=== PATIENT | female | born 1950 | race Caucasian/White ===

== ENCOUNTER → 2017-07-11 10:21 | Outpatient (CLI) | payer BC, OTHER, SELFPAY ==
--- NOTE | 2017-07-11 10:24 | MRI_ITS ---
MR Brain W/O Contrast INDICATION: migraine, LEFT FACE /ARM PAIN; H/O SYNCOPE, ANEURYSM COMPARISON: MRI/MRA February 2015 TECHNIQUE: Multiplanar multisequence MRI examination of the brain without contrast FINDINGS: There is no evidence of restricted diffusion to suggest acute infarction. The ventricular system is normal and stable compared to the prior study. There is stable minimal periventricular T2/FLAIR signal hyperintensity and a small punctate focus of signal hyperintensity in the left high frontal subcortical white matter. No new findings. Supra and infratentorial brain parenchyma demonstrates otherwise normal signal. No evidence of parenchymal hemorrhage, mass effect, midline shift, or abnormal extra-axial collection. Midline structures and craniocervical junction are unremarkable. Flow-voids of the [place] vascularity are well seen. Paranasal sinuses and mastoid air cells are clear. Please note that an angiographic sequence was not ordered or included in the scan, in the evaluation or follow-up for aneurysm is not possible. MRI/Brain without Contrast IMPRESSION: Stable examination compared to February 2015 with very minimal periventricular and a focal punctate left frontal subcortical FLAIR signal hyperintensity, nonspecific findings, may be related to very early chronic ischemic microvascular white matter changes. No new or acute findings. at 1409 Reported and signed by: Theresa Thibodeaux MD Electronically Signed: Theresa Thibodeaux MD at 14:07 EDT Tel , Service support ,
--- NOTE | 2017-07-11 10:24 | MRI_ITS ---
STUDY: MRI CERVICAL SPINE WITHOUT CONTRAST REASON FOR EXAM: Female, 66 years old. Cervical radiculopathy with left arm pain and neck pain TECHNIQUE: Standardized fat and water weighted pulse sequences were obtained in the sagittal and axial planes. COMPARISON: None FINDINGS: Normal foramen magnum and brainstem-cervical cord junction. Normal craniovertebral junction. Normal anterior atlantoaxial articulation. Normal odontoid process. Normal cervical lordosis. Normal vertebral bodies and posterior osseous elements. C2-3: Normal endplates. Normal disc height, signal and morphology. Normal central canal and intervertebral neural foramina. C3-4: Disc osteophyte complex with minimal central canal and moderate left foraminal stenoses. C4-5: Disc osteophyte complex with moderate central canal stenosis and severe left and moderate to severe right foraminal stenoses. C5-6: Disc osteophyte complex with severe central canal stenosis, mild cord compression, and severe bilateral foraminal stenoses. C6-7: Disc osteophyte complex with moderate to severe left foraminal stenosis. C7-T1: Disc osteophyte complex with moderate left foraminal stenosis. No intrinsic cord signal abnormalities are seen. Normal visualized soft tissue structures. MRI/Spine Cervical (Routine) IMPRESSION: Multilevel degenerative disease as described. Severe foraminal stenoses on the left at C4-5 and bilaterally at C5-6. Severe central canal stenosis with mild cord compression at C5-6. No intrinsic cord signal abnormalities are seen, however. Electronically Signed: Rick Kim MD at 2:24 EDT Tel , Service support ,
== END ==
PROVIDERS: Family Provider Family Medicine; PCP Family Medicine; Visit Provider Psychiatry & Neurology Neurology
DX: R51 Headache (principal); M79.602 Pain in left arm; M79.605 Pain in left leg; G90.50 Complex regional pain syndrome I, unspecified; I72.9 Aneurysm of unspecified site
CPT/HCPCS: 70551; 72141

== ENCOUNTER 2018-03-16 09:00 | Emergency (ER) | payer BC, OTHER, MEDICARE, SELFPAY ==
[2018-03-16 09:02] VITALS: BP 131/73; PULSE 90; RESP 16; TEMP 36.8; O2SAT 100; BMI 29.5
--- NOTE | 2018-03-16 09:21 | VDLE_ITS ---
Reason For Study: PAIN RIGHT LEFT GSV is normal. CFV is compressible, spontaneous, phasic, CFV is compressible, spontaneous, phasic, competent, and demonstrates normal competent and demonstrates normal augmentation. augmentation. FV is compressible, spontaneous, phasic, competent and demonstrates normal augmentation. POP V is compressible, spontaneous, phasic, competent and demonstrates normal augmentation. T/P Trunk is compressible. PTV is compressible. RT PerV is compressible. Procedure Exam performed portable in ED. A preliminary report was called and/or faxed to ED. Interpretation Summary Deep veins of the right lower extremity are patent and compressible segmentally. There is no evidence of right lower extremity deep vein thrombosis. Valvular competence appears intact within the proximal deep venous system on the right . The right greater saphenous vein appears patent and compressible segmentally. Ordering Physician: Tyree Romero Referring Physician: NOBLE RUTH Performed By: Mayra Wynn RDCS, RVT
--- NOTE | 2018-03-16 09:35 | RAD_ITS ---
STUDY: X-RAY - RIGHT KNEE REASON FOR EXAM: Female, 67 years old. Right-sided knee pain. TECHNIQUE: 3 view(s) of the knee. COMPARISON: None. FINDINGS: Normal visualized distal femur. Normal visualized proximal tibia and fibula. Normal proximal tibiofibular articulation. There is mild narrowing of the medial femoral tibial compartment. Normal lateral femorotibial compartment. Normal patellofemoral articulation. There is no demonstrated joint effusion. The soft tissue structures are unremarkable. RAD/Knee 3 Views IMPRESSION: 1. Mild joint space narrowing. 2. No radiographic evidence for acute fracture. Electronically Signed: Lizzy Flores MD at 9:57 EST , Service support ,
--- NOTE | 2018-03-16 11:15 | ED.DCSUM_ITS ---
- ER Visit Summary Date of Service: 03/16/18 Chief Complaint: [Right leg pain] History of Present Illness: The patient is a 67 F [presents the emergency department with pain in her right leg/knee that started 2 or 3 months ago. Patient's had pain off and on and has been relatively mild up until a couple of days ago it became more continuous and painful. Patient states the pain is actually worse when she is lying flat and does not notice it as much when she is up and walking. Patient denies any trauma. 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 Patient denies recent travel or surgery. She has no history of PE or DVT.] Physical Examination: [HEENT-PERRLA, EOMI. Cranial nerves II through XII grossly intact. TMs clear. Mucous membranes moist. No adenopathy. Cardiovascular-regular rate and rhythm without murmur or ectopy Lungs-clear to auscultation, chest wall stable without crepitus or subcu emphysema Abdomen-normoactive bowel sounds, soft, nontender, no rebound or rigidity, no peritoneal signs. Extremities-intact ?4, normal range of motion, normal pulses, atraumatic. Right knee-patient has normal range of motion in flexion and extension. There is no erythema or warmth noted. There is no joint effusion. Patient does have some tenderness to palpation over the anterior medial aspect of the tibia just inferior to the knee. Patient has some tenderness over the calf diffusely. No ropes or cords palpated. Patient has normal pulses femoral, popliteal, dorsal pedal, and posterior tibial.] Test Results: [Venous duplex of the right lower extremity obtained was negative for DVT. Patient also had x-rays of the right knee which showed some mild joint space narrowing otherwise no fractures.] Emergency Department Course and Treatment: [] Treatment Plan: [Patient will follow up with her primary care physician within next 5-7 days. Patient also will follow up with neurology.] Patient has [place] at home for pain as needed. Disposition: [Discharged home in stable condition] Impression: [Right leg pain-etiology uncertain.] This note was generated with [employer] software. It may contain incorrect words, spelling, and punctuation that were not noted in review of the chart prior to signing ED Disposition - Plan for ED Patient: Chief Complaint: Lower Extremity Injury Referrals: Nicholas Durbin MD [Primary Care Provider] -
--- NOTE | 2018-03-16 11:15 | ED.DEP ---
ED Disposition - Plan for ED Patient: Chief Complaint: Lower Extremity Injury Instructions: ED Knee Pain [facility] Referrals: Nicholas Durbin MD [Primary Care Provider] - 3-5 Days
--- NOTE | 2018-03-16 11:32 | ED.RN ---
THIS RN TO ROOM TO D/C PATIENT, PATIENT AND BELONGINGS NOT IN ROOM. PT LEFT PRIOR TO RECEIVING DISCHARGE INSTRUCTIONS.
== END 2018-03-16 11:33 | disposition home or self-care (01) ==
LOC: ED 09:50
PROVIDERS: Emergency Provider Emergency Medicine; Family Provider Family Medicine; PCP Family Medicine
DX: M25.561 Pain in right knee (principal); E03.9 Hypothyroidism, unspecified; E78.00 Pure hypercholesterolemia, unspecified; R42 Dizziness and giddiness; K58.9 Irritable bowel syndrome, unspecified; G90.50 Complex regional pain syndrome I, unspecified; Z79.899 Other long term (current) drug therapy
CPT/HCPCS: 73562; 93971; 99281

== ENCOUNTER 2018-03-31 19:01 | Emergency (ER) | payer OTHER, SELFPAY ==
[2018-03-31 19:02] VITALS: BP 158/84; PULSE 76; RESP 16; TEMP 37.2; O2SAT 98; BMI 29.9
[2018-03-31 19:25] VITALS: BP 142/72; PULSE 72; RESP 12; O2SAT 97
--- NOTE | 2018-03-31 19:28 | ED.RN ---
RN CALLED FOR EKG, PULLED OLD EKGS FOR
--- NOTE | 2018-03-31 19:48 | EKG12_ITS ---
Test Reason : CP Blood Pressure : / mmHG Vent. Rate : 069 BPM Atrial Rate : 069 BPM P-R Int : 160 ms QRS Dur : 104 ms QT Int : 392 ms P-R-T Axes : 051 001 049 degrees QTc Int : 420 ms Normal sinus rhythm Normal ECG Confirmed by KITTY CANO, RANDY ([id number]), metropolitan editor FARHANA BENITEZ ([id number]) on 04/02/2018 9:22:43 AM Referred By: TERE Confirmed By:RANDY TANG MD
--- NOTE | 2018-03-31 19:48 | RAD_ITS ---
STUDY: X-RAY CHEST REASON FOR EXAM: Female, 67 years old. Tachycardia TECHNIQUE: Single AP portable view of the chest. COMPARISON: 10/18/2015 FINDINGS: EKG leads overlie the chest The lungs are clear and expanded. There is no demonstrated pleural abnormality. Normal size heart. Normal mediastinum and alfreda. Normal visualized pulmonary arteries. Normal visualized aortic arch and descending thoracic aorta. Normal visualized thoracic spine. Normal visualized ribs, clavicles, and shoulders. There is no demonstrated abnormality of the visualized soft tissue structures of the upper abdomen. RAD/Chest 1 View (Portable) IMPRESSION: Normal x-ray examination of the chest. Electronically Signed: Mikhail Fleming MD at 20:40 EST , Service support ,
[2018-03-31 20:04] LABS: Absolute Lymphocyte Count 4.39 X10^3/ul (0.83-4.51); Absolute Neutrophil Count 4.9 X10^3/uL (2.0-7.7); Basophil# 0.07 X10^3/uL; Basophil% 0.7 % (0-1); Eosinophil# 0.22 X10^3/uL; Eosinophils% 2.2 % (0-5); Hematocrit 41.1 % (37-47); Hemoglobin 13.6 g/dl (12.0-15.0); Lymphocyte # 4.39 X10^3/ul (4.0); Lymphocyte % 43.7 % (19-41); Mean Corp Hgb Conc 33.1 g/gl (32-36); Mean Corpuscular Hgb 28.5 pg (27.0-32.0); Mean Corpuscular Volume 86.2 fL (81-99); Mean Platelet Vol. 10.7 fl (6.2-12.0); Monocyte# 0.51 X10^3/uL; Monocyte% 5.1 % (0-10); Neutrophil # 4.85 X10^3/uL (2.7-7.7); Neutrophil % 48.2 % (47-70); Platelet Count 261 K/mm3 (150-450); RBC Distribution Width CV 13.7 % (11.6-14.6); RBC Distribution Width SD 43.2 fl (35.1-43.9); Red Blood Count 4.77 M/mm3 (4.2-5.4); White Blood Count 10.1 K/mm3 (4.4-11.0)
[2018-03-31 20:06] LABS: POSITIVE COUNT NO; POSITIVE DIFFERENTIAL NO; POSITIVE MORPHOLOGY NO
[2018-03-31] MEDS: Aspirin 81 MG TAB.CHEW 324 MG PO (20:09)
[2018-03-31] MEDS: 0.9% Normal Saline 1,000 ML 150 ML IV (20:09)
[2018-03-31 20:13] VITALS: BP 127/62; PULSE 67; RESP 13; O2SAT 97
[2018-03-31 20:20] LABS: Anion Gap 8 (5-15); BUN 18 mg/dL (7-18); BUN/Creat Ratio 17.6 RATIO (10-20); Calcium,Total 8.8 mg/dL (8.5-10.1); Chloride 103 mmol/L (98-107); Creatinine, Serum 1.02 mg/dL (0.55-1.02); EST Glomerular Filtration Rate 58 mL/min (>60); Est Glom Filt Rate - Afr Amer 70 mL/min (>60); Estimated Creatinine Clearance 51.48 ml/min; Glucose 103 mg/dL (74-106); Potassium 3.6 mmol/L (3.5-5.1); Sodium Level 138 mmol/L (136-145)
[2018-03-31] MEDS: Mag Hydrox/Al Hydrox/Simeth 30 ML UDC PO (21:19)
[2018-03-31 21:22] VITALS: BP 133/74; PULSE 59; RESP 15; O2SAT 100
--- NOTE | 2018-03-31 21:27 | ED.VISSUMM ---
- ER Visit Summary Date of Service: 03/31/18 Chief Complaint: Chest pain History of Present Illness: The patient is a 67 F who presents with chest pain approximately 3 hours in duration. Patient states she was lying in bed watching a movie and eating Chipotle when she started noticing her heart racing. This was followed by a pressure sensation low in the mid chest area. She does not feel short of breath. She states she did measure her heart rate at 105. 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 Patient did undergo cardiac workup in summer 2015 with a normal exercise stress test at that time. Physical Examination: Vital signs are unremarkable. Head neck examination normal. Heart is regular rate and rhythm. Lung sounds are clear. Abdomen is soft and nontender. Extremity examination was no calf tenderness or edema. Test Results: EKG is sinus at 69 with no sign of acute ischemia. CBC and chemistry studies normal. Troponin is less than 0.015. Portable chest x-ray is unremarkable. Emergency Department Course and Treatment: Patient was given aspirin along with a dose of IV Pepcid. On repeat evaluation she does report some improvement but still has some mild pressure in her chest. She is given a GI cocktail. Patient reports no significant improvement with this. She still feels like she is vibrating on the inside. She is given a dose of Zofran and Ativan. On repeat evaluation she is resting comfortably but her eyes closed. She states the vibrating nerve sensation on the inside is improving but not completely resolved. The pressure sensation that she had in the lower chest is gone. The heart racing sensation is completely gone. Patient had significant cardiac workup less than 2 years ago that was unremarkable. She has not had recent symptoms concerning for cardiac disease. She will be discharged home at this time. If her symptoms worsen or she has any other concerns she is to return for repeat examination. Treatment Plan: [] Disposition: Discharge Impression: Atypical chest pain This note was generated with [employer] dictation software. It may contain incorrect words, spelling, and punctuation that were not noted in review of the chart prior to signing ED Disposition - Plan for ED Patient: Chief Complaint: Chest Pain Referrals: Nicholas Durbin MD [Primary Care Provider] -
[2018-03-31] MEDS: Ondansetron 4 MG/2 ML Vial IV (21:59)
[2018-03-31] MEDS: LORazepam 2 MG/ML Syringe 0.5 MG IV (22:00)
[2018-03-31 22:02] VITALS: BP 126/78; PULSE 61; RESP 13; O2SAT 100
--- NOTE | 2018-03-31 22:44 | ED.DEP ---
ED Disposition - Plan for ED Patient: Disposition: Home or Assisted Living Chief Complaint: Chest Pain Instructions: ED Chest Pain Atypical Unkn Cause Referrals: Nicholas Durbin MD [Primary Care Provider] - 3-5 Days if not improving
[2018-03-31 22:48] VITALS: BP 118/60; PULSE 60; RESP 14; O2SAT 97
== END 2018-03-31 22:55 | disposition home or self-care (01) ==
PROVIDERS: Emergency Provider Emergency Medicine; Family Provider Family Medicine; PCP Family Medicine
DX: R07.89 Other chest pain (principal); E03.9 Hypothyroidism, unspecified; E78.00 Pure hypercholesterolemia, unspecified; G90.512 Complex regional pain syndrome I of left upper limb; F32.9 Major depressive disorder, single episode, unspecified; K21.9 Gastro-esophageal reflux disease without esophagitis; Z79.899 Other long term (current) drug therapy
CPT/HCPCS: 71045; 80048; 84484; 85025; 93005; 96361; 96374; 96375; 99284; J7030; A4216; J2405; J3490

== ENCOUNTER → 2018-09-03 16:20 | Outpatient (CLI) | payer OTHER, SELFPAY ==
--- NOTE | 2018-09-03 16:24 | RAD_ITS ---
STUDY: X-RAY CHEST REASON FOR EXAM: Female, 68 years old. Cough. Trouble breathing for 2 weeks. TECHNIQUE: PA and lateral views of the chest. COMPARISON: March 31, 2018. FINDINGS: The lungs are well expanded. There is no new infiltrate or mass. There is no demonstrated pleural abnormality. Normal size heart. Normal mediastinum and alfreda. Normal visualized pulmonary arteries. Normal visualized aortic arch and descending thoracic aorta. Normal visualized thoracic spine. Normal visualized ribs, clavicles, and shoulders. There is no demonstrated abnormality of the visualized soft tissue structures of the upper abdomen. RAD/Chest PA and Lateral IMPRESSION: No acute cardiopulmonary disease or major interval change. Electronically Signed: Bruno Navaror DO at 16:37 EDT Tel [phone], Service support ,
== END ==
PROVIDERS: Family Provider Family Medicine; PCP Family Medicine; Referring Provider Physician Assistant Surgical; Visit Provider Physician Assistant Surgical
DX: J40 Bronchitis, not specified as acute or chronic (principal)
CPT/HCPCS: 71046

== ENCOUNTER → 2019-01-14 08:37 | Outpatient (CLI) | payer OTHER, MEDICARE, SELFPAY ==
--- NOTE | 2019-01-14 08:45 | BD_ITS ---
STUDY: DUAL ENERGY X-RAY ABSORPTIOMETRY / DXA REASON FOR EXAM: Female, 68 years old. The patient is postmenopausal. Loss of height. TECHNIQUE: Bone Mineral Density (BMD) measurements of lumbar spine and bilateral hips were obtained. COMPARISON: None. FINDINGS: Lumbar Spine (L1-L4): g/cm2 (1.002) / T-score (-1.5) / Z-score (0.1) Findings are suggestive of osteopenia with a low fracture risk. Left Femur Total: g/cm2 (0.826) / T-score (-1.4) / Z-score (-0.2) Left Femoral Neck: g/cm2 (0.764) / T-score (-2.0) / Z-score (-0.5) Right Femur Total: g/cm2 (0.811) / T-score (-1.6) / Z-score (-0.3) Right Femoral Neck: g/cm2 (0.772) / T-score (-1.9) / Z-score (-0.4) BD/Dexa Bone Density Study IMPRESSION: The patient is considered osteopenic as outlined below according to World Daniel Organization (WHO) criteria with a moderate fracture risk. Reference Information: The T-score is the number of standard deviations above or below the standard which is normal for young adults at their peak bone mineral density. The World Health Organization (WHO) interprets the T-scores as follows: Above -1 Normal bone density Between -1 and -2.5 Osteopenia Equal to / or below -2.5 Osteoporosis As a practical clinical guideline, osteopenia may be graded as follows: Mild -1 through -1.5 Moderate -1.6 through -2.0 Severe -2.1 through -2.4 The Z-score is the number of standard deviations above or below age-matched controls. A Z-score of less than -1.5 would be considered abnormal. References: 1. NIH Osteoporosis and Related Bone Diseases http://www.osteo.org 2. International Society for Clinical Densitometry http://www.iscd.org 3. National Osteoporosis Foundation http://www.nof.org Electronically Signed: Stan Jay, at 12:39 EDT , Service support ,
== END ==
PROVIDERS: Family Provider Family Medicine; PCP Family Medicine; Referring Provider Family Medicine; Visit Provider Family Medicine
DX: Z78.0 Asymptomatic menopausal state (principal)
CPT/HCPCS: 77080

== ENCOUNTER 2020-05-12 12:51 | Emergency (ER) | payer MEDICARE, OTHER, SELFPAY ==
[2020-05-12 12:51] VITALS: BP 152/81; PULSE 56; RESP 20; TEMP 36.7; O2SAT 97; BMI 31.6
--- NOTE | 2020-05-12 13:00 | EKG12_ITS ---
Test Reason : Blood Pressure : / mmHG Vent. Rate : 053 BPM Atrial Rate : 053 BPM P-R Int : 160 ms QRS Dur : 102 ms QT Int : 436 ms P-R-T Axes : 047 -25 028 degrees QTc Int : 409 ms Sinus bradycardia Otherwise normal ECG Confirmed by KITTY CANO, RANDY ([id number]), news assignment editor CARI MIRANDA ([id number]) on 05/17/2020 10:42:46 AM Referred By: BYRON Confirmed By:RANDY TANG MD
--- NOTE | 2020-05-12 13:02 | ED.DCSUM_ITS ---
History of Present Illness Chief Complaint: Back Informant: Patient Onset: Today, Hours Context: Sudden Onset Timing: Continuous Quality: Pain with pleuritic component Location: Central thoracic Current Severity: Moderate Maximum Severity: Severe Worsened by: Movement, breathing Relieved by: Nothing Associated Symptoms: No other symptoms Narrative: Patient is a 69-year-old woman with history of hypertension, hypothyroidism, hypercholesterolemia and ocular Serratia who presents with acute atraumatic central mid back pain. There is a pleuritic component. She and her recently returned from [place]. She denies history of PE or DVT. She denies leg pain, swelling discoloration. She denies shortness of breath. Patient denies H EENT symptoms. Denies abdominal pain, nausea, vomiting or diarrhea. She denies urologic symptoms. There is no history of renal ureterolithiasis. Prior similar symptoms: No Recent Illness/Hospitalization: No - Past Medical History (1) Hypertension Status: Chronic (2) Depression Status: Chronic (3) Hyperlipidemia Status: Chronic (4) Hypothyroidism Status: Chronic (5) Reflex sympathetic dystrophy of left upper extremity Status: Chronic Past Medical History - Allergies and Home Meds Allergies/Adverse Reactions: Allergies No Known Allergies Allergy (Verified 09/03/18 16:14) Primary Care Physician: Nicholas Durbin MD [Primary Care Provider] - 3-5 Days if not improving Prior records reviewed: Yes Surgical History: cholecystectomy Lives: Spouse/ Significant Other Smoking Status: Never smoker Alcohol: None Drugs: None - Family History Maternal Family History: Reports: Stroke Paternal Family History: Reports: No pertinent history Review of Systems General: Denies: Chills, Fever, Malaise, Subjective ENT: Denies: Bilateral ear pain, Rhinorrhea, Sore throat Cardiovascular: Denies: Chest pain, Palpitations, Heart racing Respiratory: Denies: Dyspnea, Cough, Sputum, Dyspnea on exertion, Orthopnea, Paroxysmal nocturnal dyspnea Gastrointestinal: Denies: Abdominal pain, Nausea, Vomiting, Diarrhea, Melena, Hematochezia Genitourinary: Denies: Dysuria, Hematuria, Frequency Musculoskeletal: Reports: Back pain. Denies: Myalgias, Arthralgias, Neck pain, Swelling, Extremity Pain Skin: Denies: Rash, Wounds Neurological: Denies: Headache, Weakness, Parasthesia Psych: Denies: Depression Hematologic: Denies: Easy bruising, Easy bleeding Physical Exam Vital Signs/Narrative: Vital Signs Temp Pulse Resp BP Pulse Ox 05/12/20 12:51 98.1 F 56 L 20 H 152/81 H 97 Inital Vital Signs reviewed: Yes General: Well nourished, Well developed, Obese, Acute Distress Head: Normocephalic, Atraumatic Eyes: Perrl, EOMI. Negative for: Pale conjunctiva, Scleral icterus ENT: Moist mucous membranes, No rhinorrhea, TM's clear Neck: Supple, Nontender, No lymphadenopathy, No JVD Cardiovascular: Regular rhythm, No murmurs, Normal S1, Normal S2, Bradycardia Respiratory: No distress, Chest nontender, Rales - Poor inspiratory effort. The is bilateral and the story rales. Patient is reluctant to take a deep breath.. Negative for: CTA bilaterally Abdomen: Soft, Nontender, Nondistended, Normal bowel sounds, No masses. Negative for: Hepatomegaly, Splenomegaly, Mass, Pulsatile mass Rectal: Deferred Back: Nontender, Normal Inspection. Negative for: CVA tenderness, Spinal tenderness Extremities: Nontender, No edema, - - There is no asymmetry, swelling, discoloration, leg vein distention, palpable cords or tenderness along the distribution of the deep venous system. Skin: Normal color, No rash Neurological: Alert, Oriented x3, Cranial nerves II-XII grossly intact, Normal Strength, Normal Sensation, - - Radial pulse, DP pulse 2+ and symmetric Psychological: Normal affect Diagnostic/Tx/Re-eval Impressions Chest CTA 05/12/20 13:24 IMPRESSION: No evidence of pulmonary embolism. Findings suggestive of mild linear scarring at the lung bases. Electronically Signed: Stan Jay MD at 13:47 EST , Service support , 05/12/20 13:24 CTA Chest W/WO Contrast [CT] Stat Laboratory Results 05/12/20 05/12/20 05/12/20 13:10 13:10 13:10 WBC 7.1 RBC 4.41 Hgb 13.0 Hct 40.0 MCV 90.7 MCH 29.5 MCHC 32.5 RDW Std Deviation 44.5 H RDW Coeff of Nadine 13.4 Plt Count 199 MPV 10.8 Immature Gran % (Auto) 0.100 Neut % (Auto) 45.7 L Lymph % (Auto) 45.8 H Wells % (Auto) 6.2 Eos % (Auto) 1.4 Baso % (Auto) 0.8 Absolute Neuts (auto) 3.3 Absolute Lymphs (auto) 3.27 Nucleated RBC % 0 PT 12.5 INR 1.0 APTT 27.2 Sodium 135 L Potassium 3.8 Chloride 101 Carbon Dioxide 29.0 Anion Gap 5 BUN 10 Creatinine 0.91 Estim Creat Clear Calc 56.16 Est GFR (MDRD) Af Amer 79 Est GFR (MDRD) Non-Af 66 BUN/Creatinine Ratio 11.0 Glucose 81 Lactic Acid Calcium 9.0 Troponin I < 0.015 B-Natriuretic Peptide 05/12/20 05/12/20 13:10 13:10 WBC RBC Hgb Hct MCV MCH MCHC RDW Std Deviation RDW Coeff of Nadine Plt Count MPV Immature Gran % (Auto) Neut % (Auto) Lymph % (Auto) Wells % (Auto) Eos % (Auto) Baso % (Auto) Absolute Neuts (auto) Absolute Lymphs (auto) Nucleated RBC % PT INR APTT Sodium Potassium Chloride Carbon Dioxide Anion Gap BUN Creatinine Estim Creat Clear Calc Est GFR (MDRD) Af Amer Est GFR (MDRD) Non-Af BUN/Creatinine Ratio Glucose Lactic Acid 0.8 Calcium Troponin I B-Natriuretic Peptide 55.0 work-up is negative. Will treat with NSAIDs. - EKG Initial EKG Interpretation: Sinus Bradycardia - Sinus bradycardia with a ventricular rate of 51. TN interval is 160 ms. QRS duration 102 ms. QT duration 436 ms. [place] is normal. Other than the bradycardia the EKG is normal. - Medical Decision Making With abrupt onset of atraumatic back pain with pleuritic component need to rule out aortic dissection versus pulmonary embolus. Appropriate blood work was ordered. CAT scan was informed concern is for both of aortic dissection as well as pulmonary embolus. Since she is not complaining of shortness of breath is more concern for aortic dissection. However there is a pleuritic component and she has had a recent long distance trip. ED Disposition - Plan for ED Patient: Disposition: Home or Assisted Living Diagnosis: Pleuritic pain, Acute back pain, Elevated blood pressure reading Instructions: ED Pleurisy Prescriptions: Naproxen [Naprosyn] 500 mg PO BID #14 tab Transmission Status: Pending to [facility] #[id number] Referrals: Nicholas Durbin MD [Primary Care Provider] - 3-5 Days if not improving
[2020-05-12 13:03] VITALS: PULSE 65; RESP 14; O2SAT 96
--- NOTE | 2020-05-12 13:24 | CT_ITS ---
STUDY: CTA CHEST REASON FOR EXAM: Female, 69 years old. BACK PAIN TODAY. RECENT TRAVEL RADIATION DOSAGE (If Supplied By Facility): CTDIvol = ( 14.44 ) mGy, DLP = ( 521.18 ) mGycm TECHNIQUE: The examination was performed with the intravenous administration of IV 100mL Isovue-370. Post-processing of the angiographic images was performed, with multiplanar reformation and 3D reconstruction. Individualized dose optimization techniques were used for this CT. COMPARISON: None. FINDINGS: Normal enhancement of the main pulmonary artery and right and left pulmonary arteries. Normal enhancement of the bilateral peripheral pulmonary arteries. There is no demonstrated pulmonary embolism. There is atherosclerotic calcification of the aortic arch with tortuosity. There is no demonstrated aortic dissection. Normal heart and pericardium. Normal mediastinum. Normal hilar regions. Normal visualized trachea and bronchi. The lungs are well expanded. Minimal degree of increased markings with areas of confluence at the lung bases with mild subpleural blebs suggestive of scarring. Normal pleura. Normal chest wall structures. Normal osseous structures. The patient is status post cholecystectomy. CT/CTA Chest W/WO Contrast IMPRESSION: No evidence of pulmonary embolism. Findings suggestive of mild linear scarring at the lung bases. Electronically Signed: Stan Jay MD at 13:47 EST , Service support ,
[2020-05-12 13:37] LABS: Absolute Lymphocyte Count 3.27 X10^3/uL (0.83-4.51); Absolute Neutrophil Count 3.3 X10^3/uL (2.0-7.7); Basophil# 0.06 X10^3/uL; Basophil% 0.8 % (0-1); Eosinophils% 1.4 % (0-5); Lymphocyte # 3.27 X10^3/ul (4.0); Lymphocyte % 45.8 % (19-41); Mean Corp Hgb Conc 32.5 g/dL (32-36); Mean Corpuscular Hgb 29.5 pg (27.0-32.0); Mean Corpuscular Volume 90.7 fL (81-99); Mean Platelet Vol. 10.8 fl (6.2-12.0); Monocyte# 0.44 X10^3/uL; Monocyte% 6.2 % (0-10); NRBC Flagged by Analyzer 0 % (0-5); Neutrophil # 3.26 X10^3/uL (2.7-7.7); Neutrophil % 45.7 % (47-70); Platelet Count 199 K/mm3 (150-450); RBC Distribution Width CV 13.4 % (11.6-14.6); RBC Distribution Width SD 44.5 fl (35.1-43.9); Red Blood Count 4.41 M/mm3 (4.2-5.4); White Blood Count 7.1 K/mm3 (4.4-11.0)
[2020-05-12 13:46] LABS: Prothrombin Time (Protime)PT. 12.5 SECONDS (11.7-14.9)
[2020-05-12 13:47] LABS: Partial Thromboplast Time 27.2 Seconds (24.1-36.2)
[2020-05-12 13:56] LABS: Anion Gap 5 (5-15); BUN 10 mg/dL (7-18); Chloride 101 mmol/L (98-107); Creatinine, Serum 0.91 mg/dL (0.55-1.02); EST Glomerular Filtration Rate 66 mL/min (>60); Est Glom Filt Rate - Afr Amer 79 mL/min (>60); Estimated Creatinine Clearance 56.16 ml/min; Glucose 81 mg/dL (74-106); Potassium 3.8 mmol/L (3.5-5.1); Sodium Level 135 mmol/L (136-145)
[2020-05-12 14:01] LABS: Lactic Acid 0.8 mmol/L (0.4-1.9)
[2020-05-12 14:14] VITALS: BP 143/70; PULSE 50; RESP 13; O2SAT 100
[2020-05-12] MEDS: Ketorolac 15 MG/ML Vial IV (15:18)
[2020-05-12 15:19] VITALS: BP 146/65; PULSE 56; RESP 10; TEMP 36.7; O2SAT 99
== END 2020-05-12 15:25 | disposition home or self-care (01) ==
PROVIDERS: Emergency Provider Emergency Medicine; PCP Family Medicine
DX: M54.6 Pain in thoracic spine (principal); R07.81 Pleurodynia; R00.1 Bradycardia, unspecified; I10 Essential (primary) hypertension; E03.9 Hypothyroidism, unspecified; E78.00 Pure hypercholesterolemia, unspecified; F32.9 Major depressive disorder, single episode, unspecified; E66.9 Obesity, unspecified; Z68.31 Body mass index [BMI] 31.0-31.9, adult; Z79.899 Other long term (current) drug therapy
CPT/HCPCS: 71275; 80048; 83605; 83880; 84484; 85025; 85610; 85730; 93005; 96374; 99285; J7030; Q9967; A4216; J2405

== ENCOUNTER → 2022-06-14 | Outpatient (CLI) | payer MEDICARE, OTHER, SELFPAY ==
[2022-06-14 15:36] LABS: EXAGEN MAILED SPECIMEN
[2022-06-14 17:54] LABS: Absolute Neutrophil Count 4.1 X10^3/uL (2.0-7.7); Basophil# 0.07 X10^3/uL; Basophil% 0.9 % (0-1); Eosinophil# 0.06 X10^3/uL; Eosinophils% 0.8 % (0-5); Hematocrit 43.5 % (37-47); Lymphocyte % 39.2 % (19-41); Mean Corp Hgb Conc 32.2 g/dL (32-36); Mean Corpuscular Hgb 28.7 pg (27.0-32.0); Mean Corpuscular Volume 89.3 fL (81-99); Mean Platelet Vol. 11.9 fl (6.2-12.0); Monocyte# 0.39 X10^3/uL; Monocyte% 5.1 % (0-10); NRBC Flagged by Analyzer 0 % (0-5); Neutrophil # 4.12 X10^3/uL (2.7-7.7); Neutrophil % 53.7 % (47-70); Platelet Count 257 K/mm3 (150-450); RBC Distribution Width CV 13.4 % (11.6-14.6); RBC Distribution Width SD 43.7 fl (35.1-43.9); Red Blood Count 4.87 M/mm3 (4.2-5.4); White Blood Count 7.7 K/mm3 (4.4-11.0)
[2022-06-14 18:06] LABS: Color, Urine Yellow (Yellow); Glucose, Dipstick Normal (Normal); Ketone-Dipstick 5 mg/dl (Negative); Leukocyte Esterase-Dipstick 25 /ul (Negative); Nitrite-Dipstick Negative (Negative); Occult Blood-Urine Negative /ul (Negative); Protein-Dipstick Negative (Negative); Specific Gravity, Urine 1.015 (1.002-1.030); Urine Bilirubin Dipstick Negative (Negative); Urine Clarity Clear (Clear); Urine Urobilinogen Normal (Normal)
[2022-06-14 18:08] LABS: Erythrocyte Sedimentation Rate 6 mm/hr (0-30)
[2022-06-14 18:22] LABS: Protein, Urine (Random) < 6.0 mg/dL (<11.9); Protein:Creat Ratio 117 mg/g CRE (0-200)
[2022-06-14 18:35] LABS: ALB/GLOB Ratio 1.2 RATIO (0.9-2.4); AST(SGOT) 27 U/L (15-37); Alanine Aminotransfer ALT/SGPT 36 U/L (13-56); Albumin, Serum 4.1 g/dL (3.2-5.0); Alkaline Phosphatase 67 U/L (45-117); Anion Gap 7 (5-15); BUN 16 mg/dL (7-18); CRP 5.43 mg/L (0.0-3.0); Calcium,Total 9.7 mg/dL (8.5-10.1); Chloride 106 mmol/L (98-107); Creatinine, Serum 1.07 mg/dL (0.55-1.02); EST Glomerular Filtration Rate 54 mL/min (>60); Est Glom Filt Rate - Afr Amer 65 mL/min (>60); Globulin 3.3 g/dL (2.2-4.2); Glucose 87 mg/dL (74-106); Potassium 3.8 mmol/L (3.5-5.1); Protein, Total 7.4 g/dL (6.4-8.2); Sodium Level 140 mmol/L (136-145)
[2022-06-14 19:01] LABS: Hepatitis B Surface Antibody Non-Reactive; Hepatitis B Surface Antigen Non-Reactive (Nonreactive); Hepatitis C Antibody Non-Reactive (Nonreactive)
[2022-06-21 16:08] LABS: HLA B27 Negative (.)
== END | disposition home or self-care (01) ==
PROVIDERS: PCP Family Medicine; Visit Provider Internal Medicine Rheumatology
DX: M06.4 Inflammatory polyarthropathy (principal); R76.8 Other specified abnormal immunological findings in serum; M79.7 Fibromyalgia; G54.5 Neuralgic amyotrophy; H10.823 Rosacea conjunctivitis, bilateral; E03.9 Hypothyroidism, unspecified; E78.5 Hyperlipidemia, unspecified; H81.02 Meniere's disease, left ear; F41.9 Anxiety disorder, unspecified
CPT/HCPCS: 36415; 80053; 81002; 81374; 82570; 84156; 85025; 85652; 86140; 86706; 86803; 87340

== ENCOUNTER → 2023-04-05 | Outpatient (CLI) | payer MEDICARE, OTHER, SELFPAY ==
[2023-04-05 11:39] LABS: Absolute Lymphocyte Count 2.42 X10^3/uL (0.83-4.51); Absolute Neutrophil Count 3.3 X10^3/uL (2.0-7.7); Basophil# 0.07 X10^3/uL; Basophil% 1.1 % (0-1); Eosinophil# 0.16 X10^3/uL; Eosinophils% 2.5 % (0-5); Hematocrit 44.5 % (37-47); Lymphocyte # 2.42 X10^3/ul (0.83-4.51); Lymphocyte % 38.4 % (19-41); Mean Corp Hgb Conc 31.5 g/dL (32-36); Mean Corpuscular Hgb 28.6 pg (27.0-32.0); Mean Platelet Vol. 11.6 fl (6.2-12.0); Monocyte# 0.32 X10^3/uL; Monocyte% 5.1 % (0-10); NRBC Flagged by Analyzer 0 % (0-5); Neutrophil # 3.32 X10^3/uL (2.7-7.7); Neutrophil % 52.6 % (47-70); Platelet Count 222 K/mm3 (150-450); RBC Distribution Width CV 13.8 % (11.6-14.6); Red Blood Count 4.89 M/mm3 (4.2-5.4); White Blood Count 6.3 K/mm3 (4.4-11.0)
--- OUTSIDE RECORDS SUMMARY | 2023-04-05 11:49 | XMS RPT_ITS | CCD ---
Author Name Unknown Address [address] [place] [address] Organization [facility] Care Team Providers Care Phlebotomy Supervisor Name Role Phone Noble Durbin Primary Care Provider Shyam Roger Primary Care Provider Flory CANO, Noble Michaud Primary Care Provider Flory CANO, Noble Michaud Primary Care Provider Flory CANO, Noble Michaud Primary Care Provider Noble Durbin MD Primary Care Provider XIOMARA FOWLER Attending Unavailable XIOMARA FOWLER Referring Unavailable FLORY, NOBLE Primary Care Unavailable FLORY, NOBLE Primary Care Unavailable BRIDENTHAL, LISA Attending Unavailable FLORY, NOBLE Primary Care Unavailable XIOMARA FOWLER Attending Unavailable FLORY, NOBLE Primary Care Unavailable BRIDENTHAL, LISA Attending Unavailable FLORY, NOBLE Primary Care Unavailable CURTIS CINTRON Attending Unavailable FLORY, NOBLE Primary Care Unavailable BRIDENTHAL, LISA Attending Unavailable FLORY, NOBLE Primary Care Unavailable BRIDENTHAL, LISA Attending Unavailable FLORY, NOBLE Primary Care Unavailable Medications Current Medications Medication Drug Class(es) Dates Sig (Normalized) Sig (Original) acetaminophen 325 mg / HYDROcodone bitartrate 5 mg oral tablet (20 sources) Opioid Agonist Start: 10-02-2022 End: 04-20-2023 take 1 tablet by mouth every six hours as needed for pain HYDROcodone-acetam inophen (Tekamah) 5-325 MG tablet Indications: Reflex sympathetic dystrophy Take 1 tablet by mouth every 6 hours as needed for severe pain (7-10). 60 tablet 0 03/21/2023 04/20/2023 Active Completed/Discontinued Medications Medication Drug Class(es) Dates Sig (Normalized) Sig (Original) acetaminophen 650 mg / propoxyphene napsylate 100 mg oral tablet (1 source) Opioid Agonist Start: 02-12-2006 DARVOCET-N 100 100 MG-650 MG TAB as necessary 0 02/12/2006 Active Problems Active Problems Problem Classification Problem Date Documented Date Episodic/Chronic Anxiety disorders (20 sources) Anxiety; Translations: [Anxiety disorder, unspecified] Onset: 09-24-2014 09-24-2014 Chronic Diseases of mouth; excluding dental (4 sources) Bleeding from mouth; Translations: [Irritative hyperplasia of oral mucosa] Onset: 03-29-2023 03-29-2023 Episodic Disorders of lipid metabolism (20 sources) Hyperlipidemia; Translations: [Hyperlipidemia, unspecified] Onset: 07-24-2018 07-24-2018 Chronic Essential hypertension (20 sources) Hypertensive disorder; Translations: [Essential (primary) hypertension] Onset: 05-13-2020 05-13-2020 Chronic Miscellaneous mental health disorders (20 sources) Primary insomnia; Translations: [Primary insomnia] Onset: 05-11-2021 01-07-2022 Chronic Mood disorders (20 sources) Depressive disorder; Translations: [Major depressive disorder, single episode, unspecified] Onset: 05-13-2020 05-13-2020 Chronic Other connective tissue disease (3 sources) Weakness of left hand; Translations: [Other symptoms and signs involving the musculoskeletal system] 02-14-2023 Episodic Other connective tissue disease (3 sources) Pain in left arm; Translations: [Pain in left arm] 02-14-2023 Episodic Other connective tissue disease (2 sources) Other symptoms and signs involving the musculoskeletal system; Translations: [Other symptoms and signs involving the musculoskeletal system] Onset: 03-13-2023 Episodic Other connective tissue disease (2 sources) Pain in left arm; Translations: [Pain in left arm] Onset: 03-13-2023 Episodic Other nervous system disorders (2 sources) Complex regional pain syndrome type I; Translations: [Complex regional pain syndrome I, unspecified] Onset: 07-12-2022 Chronic Other nervous system disorders (1 source) Neuralgic amyotrophy; 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 Other nervous system disorders (2 sources) Complex regional pain syndrome of upper limb; Translations: [Complex regional pain syndrome I of left upper limb] Onset: 03-13-2023 Chronic Other nervous system disorders (20 sources) Complex regional pain syndrome; Translations: [Complex regional pain syndrome I, unspecified] Onset: 09-24-2014 09-24-2014 Chronic Other nervous system disorders (20 sources) Complex regional pain syndrome type I of left upper limb; Translations: [Complex regional pain syndrome I of left upper limb] Onset: 05-13-2020 05-13-2020 Chronic Other nervous system disorders (1 source) Complex regional pain syndrome I of left upper limb; Translations: [Complex regional pain syndrome i of left upper limb] Onset: 01-07-2022 Chronic Other nervous system disorders (1 source) Complex regional pain syndrome I, unspecified; Translations: [Complex regional pain syndrome I, unspecified] Onset: 01-07-2022 Chronic Other nutritional; endocrine; and metabolic disorders (20 sources) Obese class I; Translations: [Obesity, unspecified] Onset: 12-16-2014 12-16-2014 Chronic Other nutritional; endocrine; and metabolic disorders (2 sources) Obesity, unspecified; Translations: [Obesity, unspecified] Onset: 01-07-2022 Chronic Rheumatoid arthritis and related disease (16 sources) Inflammatory polyarthropathy; Translations: [Inflammatory polyarthropathy] Onset: 07-25-2022 10-25-2022 Chronic Spondylosis; intervertebral disc disorders; other back problems (20 sources) Backache; Translations: [Dorsalgia, unspecified] Onset: 05-13-2020 05-13-2020 Episodic Thyroid disorders (20 sources) Acquired hypothyroidism; Translations: [Hypothyroidism, unspecified] Onset: 07-24-2018 07-24-2018 Chronic Past or Other Problems Problem Classification Problem Date Documented Da te Episodic/Chronic Abdominal pain (20 sources) Epigastric pain; Translations: [Epigastric pain] Onset: 09-24-2014 09-24-2014 Episodic Allergic reactions (20 sources) Allergic contact dermatitis; Translations: [Allergic contact dermatitis due to other agents] Onset: 09-10-2020 09-10-2020 Episodic Mood disorders (14 sources) Mood disorders Onset: 10-24-2022 10-24-2022 Neoplasms of unspecified nature or uncertain behavior (20 sources) Neoplasm of uncertain behavior of skin of lower leg; Translations: [Neoplasm of uncertain behavior of skin] Onset: 03-01-2022 03-01-2022 Episodic Other connective tissue disease (20 sources) Medial epicondylitis; Translations: [Medial epicondylitis, unspecified elbow] Onset: 07-24-2018 07-24-2018 Episodic Other connective tissue disease (20 sources) Muscle pain; Translations: [Myalgia, unspecified site] Onset: 05-01-2022 05-01-2022 Episodic Other connective tissue disease (20 sources) Fibromyalgia; Translations: [Fibromyalgia] Onset: 10-25-2022 10-25-2022 Episodic Other connective tissue disease (2 sources) Myalgia, unspecified site; Translations: [Myalgia, unspecified site] Onset: 05-01-2022 Episodic Other non-traumatic joint disorders (20 sources) Joint pain; Translations: [Pain in unspecified joint] Onset: 05-01-2022 05-01-2022 Episodic Other non-traumatic joint disorders (2 sources) Pain in unspecified joint; Translations: [Pain in unspecified joint] Onset: 05-01-2022 Episodic Other screening for suspected conditions (not mental disorders or infectious disease) (5 sources) Patient encounter status; Translations: [Encounter for screening for malignant neoplasm of colon] Onset: 05-17-2022 10-25-2022 Episodic Other skin disorders (20 sources) Actinic keratosis; Translations: [Actinic keratosis] Onset: 12-15-2014 12-15-2014 Episodic Residual codes; unclassified (20 sources) Pain; Translations: [Pain, unspecified] Onset: 05-17-2022 05-17-2022 Episodic Residual codes; unclassified (2 sources) Pain, unspecified; Translations: [Pain, unspecified] Onset: 05-17-2022 Episodic Sprains and strains (20 sources) Sprain of medial collateral ligament of knee; Translations: [Sprain of medial collateral ligament of right knee, initial encounter] Onset: 07-24-2018 07-24-2018 Episodic Viral infection (20 sources) Verruca vulgaris; Translations: [Viral wart, unspecified] Onset: 02-15-2022 02-15-2022 Episodic Results Test Name Value Interpretation Reference Range Facil ity Vital Signs Date Time Vital Sign Value Performing Clinician Faci lity 03-29-2023 08:42-0500 Body mass index (BMI) [Ratio] 32.22 kg/m2 Lisa Bridenthal [employer] - MEDICAL REIMBURSEMENT MANAGER Work Phone: [email or web address] 03-29-2023 08:42-0500 Body temperature 98.01 [degF] Lisa Bridenthal [employer] - MEDICAL REIMBURSEMENT MANAGER Work Phone: [email or web address] 03-29-2023 08:42-0500 Body weight 90.54 kg Lisa Bridenthal SALESPERSON [employer] - MEDICAL REIMBURSEMENT MANAGER Work Phone: [facility] 03-29-2023 08:42-0500 Diastolic blood pressure 63 mm[Hg] Lisa Bridenthal SALESPERSON [employer] - MEDICAL REIMBURSEMENT MANAGER Work Phone: [email or web address] 03-29-2023 08:42-0500 Heart rate 65 /min Lisa Bridenthal [employer]ERSON [employer] - MEDICAL REIMBURSEMENT MANAGER Work Phone: [email or web address] 03-29-2023 08:42-0500 Respiratory rate 16 /min Lisa Bridenthal SALESPERSON [employer] - MEDICAL REIMBURSEMENT MANAGER Work Phone: [facility] 03-29-2023 08:42-0500 Systolic blood pressure 99 mm[Hg] Lisa Bridenthal SAL[employer]ERSON [employer] - MEDICAL REIMBURSEMENT MANAGER Work Phone: [email or web address] 02-14-2023 13:22-0500 Body height 167.6 cm Xiomara Arizaran DO Work Phone: [email or web address] 02-14-2023 13:22-0500 Body mass index (BMI) [Ratio] 32.35 kg/m2 Xiomara Fowler DO Work Phone: [facility] 02-14-2023 13:22-0500 Body weight 90.9 kg Xiomara Fowler DO Work Phone: [email or web address] 02-14-2023 13:22-0500 Diastolic blood pressure 67 mm[Hg] Xiomara Fowler DO Work Phone: [email or web address] 02-14-2023 13:22-0500 Heart rate 69 /min Xiomara Fowler DO Work Phone: [email or web address] 02-14-2023 13:22-0500 Systolic blood pressure 103 mm[Hg] Xiomara Fowler DO Work Phone: [email or web address] 10-25-2022 10:42-0400 Body height 167.6 cm Curtis Cintron SAL[employer]ERSON [employer] - MEDICAL REIMBURSEMENT MANAGER Work Phone: [facility] 10-25-2022 10:42-0400 Body mass index (BMI) [Ratio] 32.6 kg/m2 Curtis Cintron [employer]ERSON [employer] - MEDICAL REIMBURSEMENT MANAGER Work Phone: [facility] 10-25-2022 10:42-0400 Body weight 91.63 kg Curtis Cintron SALESPERSON [employer] - MEDICAL REIMBURSEMENT MANAGER Work Phone: [email or web address] 10-25-2022 10:42-0400 Diastolic blood pressure 70 mm[Hg] Curtis Cintron SALESPERSON [employer] - MEDICAL REIMBURSEMENT MANAGER Work Phone: [facility] 10-25-2022 10:42-0400 Heart rate 71 /min Curtis Cintron SALESPERSON [employer] - MEDICAL REIMBURSEMENT MANAGER Work Phone: [facility] 10-25-2022 10:42-0400 SaO2% (BldA) [Mass fraction] 96 % Curtis Cintron SALESPERSON [employer] - MEDICAL REIMBURSEMENT MANAGER Work Phone: [facility] 10-25-2022 10:42-0400 Systolic blood pressure 130 mm[Hg] Curtis Cintron SALESPERSON [employer] - MEDICAL REIMBURSEMENT MANAGER Work Phone: [email or web address] Encounters Encounter Date Encounter Type Care Provider Facility Start: 03-29-2023 End: 03-29-2023 [facility] Start: 03-29-2023 End: 03-29-2023 Office outpatient visit 15 minutes Lisa Randyal [employer]ERSON [employer] - MEDICAL REIMBURSEMENT MANAGER Work Phone: [facility] Procedures Date Procedure Procedure Detail Performing Clinician Start: 03-13-2023 Nerve conduction jalen dies 11-12 studies Xiomara Barbosa Malcolm DO Work Phone: Start: 10-25-2022 Lipid 1996 panel - S rosa or Plasma Curtis Cintron SAL[employer]ERSON [employer] - MEDICAL REIMBURSEMENT MANAGER Work Phone: Start: 10-25-2022 Thyrotropin [Units/v olume] in Serum or Plasma Curtis Cintron SALESPERSON [employer] - MEDICAL REIMBURSEMENT MANAGER Work Phone: Start: 05-02-2022 Thyrotropin [Units/v olume] in Serum or Plasma Shaye Tony MD Work Phone: Start: 02-15-2021 End: 02-15-2021 Screening digital breast tomosynthesis bi Noble Durbin MD Work Phone: Start: 01-12-2021 Lipid 1996 panel - S rosa or Plasma Shaye Tony MD Work Phone: Start: 08-03-2020 [facility] REPORT Xiomara herrera DO Work Phone: Start: 01-10-2012 CONVERTED CYTOLOGY LONG TERM CARE SOCIAL WORKER Shyam Roger Work Phone: Plan of Treatment Date Care Activity Detail Author Start: 10-26-2027 Lipid panel Lipid Panel [facility] Start: 01-12-2026 Lipid panel Lipid Panel [facility] Start: 10-26-2023 Thyroid stimulating hormone measurement TSH Level [facility] Start: 10-25-2023 DTaP/Tdap/Td Vaccine s (1 - Tdap) DTaP/Tdap/Td Vaccines (1 - Tdap) [facility] Immunizations Immunization Date Immunization Notes Care Provider Fa cili 02-01-2021 Pfizer SARS-CoV-2 Vaccination Shaye Tony MD Work Phone: [facility] 01-12-2021 pneumococcal polysaccharide vaccine, 23 valent Noble Durbin MD Work Phone: [facility] 06-19-2020 COVID-19, Pfizer, PF , 30mcg/0.3mL Xiomara Fowler DO [facility] Work Phone: 05-30-2020 COVID-19, Pfizer, PF , 30mcg/0.3mL Xiomara Fowler DO [facility] Work Phone: 12-13-2009 hepatitis A vaccine, adult dosage Shaye Tony MD Work Phone: [facility] 06-09-2009 hepatitis A vaccine, adult dosage Shaye Tony MD Work Phone: [facility] 06-09-2009 tetanus and diphther ia toxoids, adsorbed, preservative free, for adult use (2 Lf of tetanus toxoid and 2 Lf of diphtheria toxoid) Shaye Tony MD Work Phone: [facility] Payers Date Payer Category Payer Medicare [employer] UHC MEDICARE ADVANTAGE [id number] 2022-Present [address] [place] [address] Medicare HMO [id number] 2022 Medicare [id number] 2018 Medicare [employer] MEDICARE A ETNA MEDICARE-ADVANTAGE PPO MEBRZLPJ 2018-Present [address] [place] [address] Medicare MEBRZLPJ [id number] 2010 Unknown NANCY SAENZ PREF ERRED EPO [id number] 2010-2017 EPO [id number] 2008 Unknown [id number] 2008 Unknown MOON [employer]AFA [id number] 2008-Present [address] [place] [address] Other Government [id number] 2004 Self-pay SELF PAY HSP/MED ICAL SELF PAY [id number] 2004-2015 SELF PAY Indemnity [id number] Social History Date Type Detail Facility Tobacco smoking stat [facility] Unknown if ever smoked [facility] Start: 1950 Sex Assigned At Not on file C [facility] Start: 07-06-2020 Tobacco smoking stat [facility] Never smoker [facility] Start: 07-06-2020 Tobacco use and exposure Never used [facility] Start: 07-06-2020 End: 03-29-2023 Alcohol intake Current non-drinker of alcohol (finding) [employer] Work Phone: Start: 12-30-2019 End: 01-11-2021 History SDOH Alcohol Frequency 1 [employer] Work Phone: Start: 12-30-2019 History SDOH Physica l Activity DPW 3 [employer] Work Phone: Start: 12-30-2019 End: 01-11-2021 History SDOH Financial 5 [employer] Work Phone: Start: 12-30-2019 End: 01-11-2021 History SD[facility]: Start: 05-07-2022 End: 10-25-2022 Exposure to SARS-CoV-2 (event) Not sure [facility] Start: 02-15-2021 End: 10-24-2022 Alcohol intake [facility] Start: 07-12-2022 End: 10-24-2022 Tobacco use panel [facility] Adolescent depressio n screening assessment 5 [facility] Goals Date Patient Goal Desired Activity /State Clinical Notes 06-22-2020 to 03-29-2023 Assessment & Plan Note - LYNN Beach CNP - 03/29/2023 10:27 AM ESTAssessment & Plan Note - LYNN Beach CNP - 03/29/2023 10:27 AM ESTPatient Instructions Note Date & Type Note Facility 03-29-2023 Evaluation + Plan note Associated Problem(s): Irritation of oral cavity Uncertain etiology. Symptoms have been ongoing for several weeks now. Mild erythema, will treat with topical nystatin swish and spit. If no improvement or worsens, recommend seeing ear nose throat specialist at that time. [facility] 03-29-2023 Miscellaneous Notes Associated Problem(s): Irritation of oral cavity Uncertain etiology. Symptoms have been ongoing for several weeks now. Mild erythema, will treat with topical nystatin swish and spit. If no improvement or worsens, recommend seeing ear nose throat specialist at that time. documented in this encounter [facility] 03-29-2023 History of Present illness Narrative Patient was identified by name and Date of . Images from the original note were not included. 03/29/2023 Salma Posadas (: 1950) is a 72 y.o. female , Established patient, here for evaluation of the following chief complaint(s): Oral Pain ASSESSMENT/PLAN: 1. Irritation of oral cavity Assessment & Plan: Uncertain etiology. Symptoms have been ongoing for several weeks now. Mild erythema, will treat with topical nystatin swish and spit. If no improvement or worsens, recommend seeing ear nose throat specialist at that time. Orders: - nystatin (Mycostatin) 022085 UNIT/ML suspension; Take 5 mL (500,000 Units) by mouth in the morning and 5 mL (500,000 Units) at noon and 5 mL (500,000 Units) in the evening and 5 mL (500,000 Units) before bedtime. Do all this for 7 days. Swish in mouth and spit out.., Starting Celeste 03/29/2023, Until Celeste 04/05/2023, Normal Follow up if symptoms worsen or fail to improve. SUBJECTIVE/OBJECTIVE: HPI - Salma Posadas (: 1950) is a 72 y.o. female , Established patient, here for the evaluation of the following chief complaint(s): Oral Pain Presents today for bilateral buccal discomfort x 3 weeks or more. States she did have influenza a couple weeks ago but has gotten over those symptoms. The mouth soreness was present prior. Denies any fever or chills. Feels her normal otherwise. Has not tried any mouthwashes. Denies any dental pain, no ear pain or sore throat. Prior to Admission medications Medication Sig Start Date End Date Taking? Authorizing Provider busPIRone (Buspar) 10 MG tablet take 1 tablet by mouth twice a day 01/16/23 Yes Noble Durbin MD doxycycline (Vibramycin) 50 MG capsule Take 50 mg by mouth in the morning. 01/29/22 Yes Historical Provider, fluorometholone (FML) 0.1 % ophthalmic suspension Administer 1 drop into both eyes in the morning and 1 drop before bedtime. 02/10/22 Yes Historical Provider, HYDROcodone-acetaminophen (Tekamah) 5-325 MG tablet Take 1 tablet by mouth every 6 hours as needed for severe pain (7-10). 03/21/23 04/20/23 Yes LYNN Beach CNP levothyroxine (Synthroid, Levoxyl) 88 MCG tablet Take 1 tablet (88 mcg) by mouth daily. 10/16/22 Yes Noble Durbin MD LORazepam (Ativan) 1 MG tablet Take 1 tablet (1 mg) by mouth every 6 hours as needed for anxiety. 02/27/23 Yes Noble Durbin MD omeprazole (PriLOSEC) [address] capsule take 1 capsule by mouth EVERY MORNING BEFORE BREAKFAST 01/01/23 Yes Noble Durbin MD pregabalin (Lyrica) 225 MG capsule Take 1 capsule (225 mg) by mouth 3 times daily. 03/21/23 Yes LYNN Beach CNP rosuvastatin (Crestor) 20 MG tablet take 1 tablet by mouth once daily 02/22/23 Yes LYNN Beach CNP triamterene-hydrochlorothiazide (Maxzide-25) 37.5-25 MG tablet take 1 tablet by mouth once daily 03/05/23 Yes Noble Durbin MD zolpidem (Ambien) 10 MG tablet Take 1 tablet (10 mg) by mouth Nightly as needed for sleep. 03/21/23 04/20/23 Yes LYNN Beach CNP Review of Systems Constitutional: Positive for fatigue (ongoing). Negative for activity change, appetite change, chills and fever. HENT: Negative. Mouth discomfort Respiratory: Negative. Cardiovascular: Negative. Vitals: 03/29/23 0842 BP: 99/63 Pulse: 65 Resp: 16 Temp: 36.7 C (98 F) TempSrc: Infrared Weight: 199 lb 9.6 oz (90.5 kg) Physical Exam Constitutional: General: She is not in acute distress. Appearance: Normal appearance. She is not ill-appearing. HENT: Head: Normocephalic and atraumatic. Right Ear: Tympanic membrane normal. Left Ear: Tympanic membrane normal. Nose: No congestion or rhinorrhea. Mouth/Throat: Mouth: Mucous membranes are moist. Pharynx: Oropharynx is clear. Comments: . Mild erythema bilateral buccal tissue, no dental tenderness or swelling noted, no visual lesions noted on oral mucosa Skin: General: Skin is warm and dry. Neurological: Mental Status: She is alert and oriented to person, place, and time. An electronic signature was used to authenticate this note. 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 [facility] 03-22-2023 Telephone encounter Note S: The patient is calling the [facility] about mouth swelling B: This has been present for several weeks A: This is the inside of the cheeks bilaterally - she sees the dentist regularly. The swelling is minimal but lingering. This does not affect her swallowing or breathing in any way. There is no visual evidence of the swelling; she can only feel it. No discoloration or lumps noted; no pain. She wonders if she is sucking in her cheeks while sleeping; her recently and she has some anxiety. She was in UC for this 2 weeks ago and they did not find anything amiss. R: Appointment made, insurance verified; reviewed reasons to be seen emergently in the ED. Reason for Disposition Patient wants to be seen Protocols used: Mouth [id number] [facility] 03-22-2023 Miscellaneous Notes S: The patient is calling the [facility] about mouth swelling B: This has been present for several weeks A: This is the inside of the cheeks bilaterally - she sees the dentist regularly. The swelling is minimal but lingering. This does not affect her swallowing or breathing in any way. There is no visual evidence of the swelling; she can only feel it. No discoloration or lumps noted; no pain. She wonders if she is sucking in her cheeks while sleeping; her recently and she has some anxiety. She was in UC for this 2 weeks ago and they did not find anything amiss. R: Appointment made, insurance verified; reviewed reasons to be seen emergently in the ED. Reason for Disposition Patient wants to be seen Protocols used: Mouth [id number] documented in this encounter [facility] 03-21-2023 Telephone encounter Note Reviewed chart. Refill appropriate. RX sent. [facility] 03-21-2023 Miscellaneous Notes Reviewed chart. Refill appropriate. RX sent. [facility] Ambien and Lyrica 06/29/22 CSA Tekamah 12/07/22 Prescription Request: Last medication check: 10-25-22 Last physical exam: 05-17-22 Next scheduled appointment: 05-02-23 Last date of refill on this medication norco and ambien 02/19/23, lyrica 01/26/23 Name of caller: Salma Posadas Contact phone number: [phone] Relationship to Patient: patient Provider: Dr. Durbin Practice: [facility] Chief Complaint/Reason for Call: Pt is calling back regarding her Rx refills, see closed TE from 03.16.2023. Pt stated she is out of her Rx. Please advise. Thank you. Best time of day caller can be reached: Any Patient advised that office/PCP has 24-48 business hours to return their call: Yes documented in this encounter [email or web address] 03-21-2023 Telephone encounter Note [facility]SA Ambien and Lyrica 06/29/22 [facility]SA [place] 12/07/22 Prescription Request: Last medication check: 10-25-22 Last physical exam: 05-17-22 Next scheduled appointment: 05-02-23 Last date of refill on this medication norco and ambien 02/19/23, lyrica 01/26/23 [email or web address] 03-21-2023 Telephone encounter Note Name of caller: Salma Posadas Contact phone number: [phone] Relationship to Patient: patient Provider: Dr. Durbin Practice: [facility] Chief Complaint/Reason for Call: Pt is calling back regarding her Rx refills, see closed TE from 03.16.2023. Pt stated she is out of her Rx. Please advise. Thank you. Best time of day caller can be reached: Any Patient advised that office/PCP has 24-48 business hours to return their call: Yes [facility] [email or web address] 03-13-2023 Note [facility] Neurology Lab EMG/NCS report: Patient: Salma Posadas AGE: 72 y.o. Handedness: Right Gender: Female Referring physician: Xiomara Fowler DO Study date: 03/13/23 Reason for referral: Patient presents with left hand weakness and numbness as well as neck pain. Patient also has paresthesia in the left hand more than the right hand. Nerve conduction study only of the left upper and right upper extremity is done to evaluate for mononeuropathy affecting the right or left arm vs. Right or left cervical radiculopathy. Summary: The right median sensory nerve action potential was unremarkable. The right ulnar sensory nerve action potential was unremarkable. The left median sensory nerve action potential was unremarkable. The left ulnar sensory nerve action potential was unremarkable. The right median to ulnar palmar comparison mixed nerve action potential was unremarkable. The left median to ulnar palmar comparison mixed nerve action potential was unremarkable. The right radial sensory nerve action potential was unremarkable. The left radial sensory nerve action potential was unremarkable. The left median to radial thumb comparison study was unremarkable. The left median to ulnar ring finger comparison study was unremarkable. The right median to APB compound muscle action potential was unremarkable. The left median to APB compound muscle action potential was unremarkable. The right ulnar to ADM compound muscle action potential was unremarkable. The left ulnar to ADM compound muscle action potential was remarkable for a decreased amplitude and a decreased conduction velocity across the elbow segment. Of note there was a partial conduction block (amplitude drop of 38%) noted between the below elbow stimulation site and the above elbow stimulation site across the elbow segment on this study. The left ulnar to FDI compound muscle action potential was remarkable for a decreased amplitude and a decreased conduction velocity across the elbow segment. Of note there was a conduction block noted between the below elbow stimulation site and the above elbow stimulation site across the elbow segment on this study. Concentric needle EMG was not performed on this study at the patients request. Impression: This is a limited but abnormal study. There is electrophysiological evidence of a left ulnar neuropathy which localizes to the elbow segment and is moderate in severity electrophysiologically. There is no evidence of a mononeuropathy affecting the right upper extremity on this study. This study cannot comment on the presence or absence of a right or left sided cervical radiculopathy as the patient did complete the EMG portion of the study. All normal values/reference values for this study were taken from the [facility] reference values which were created in 2019. This dictation was done by using the myhub dictation system. It has been proofread but still may contain unrecognized voice recognition errors. [facility]-13[facility]23 Procedure note Associated Ord er(s): NERVE CONDUCTION TEST WITH EMG [facility] Neurology Lab EMG/NCS report: Patient: Salma Posadas AGE: 72 y.o. Handedness: Right Gender: Female Referring physician: Xiomara Fowler DO Study date: 03/13/23 Reason for referral: Patient presents with left hand weakness and numbness as well as neck pain. Patient also has paresthesia in the left hand more than the right hand. Nerve conduction study only of the left upper and right upper extremity is done to evaluate for mononeuropathy affecting the right or left arm vs. Right or left cervical radiculopathy. Summary: The right median sensory nerve action potential was unremarkable. The right ulnar sensory nerve action potential was unremarkable. The left median sensory nerve action potential was unremarkable. The left ulnar sensory nerve action potential was unremarkable. The right median to ulnar palmar comparison mixed nerve action potential was unremarkable. The left median to ulnar palmar comparison mixed nerve action potential was unremarkable. The right radial sensory nerve action potential was unremarkable. The left radial sensory nerve action potential was unremarkable. The left median to radial thumb comparison study was unremarkable. The left median to ulnar ring finger comparison study was unremarkable. The right median to APB compound muscle action potential was unremarkable. The left median to APB compound muscle action potential was unremarkable. The right ulnar to ADM compound muscle action potential was unremarkable. The left ulnar to ADM compound muscle action potential was remarkable for a decreased amplitude and a decreased conduction velocity across the elbow segment. Of note there was a partial conduction block (amplitude drop of 38%) noted between the below elbow stimulation site and the above elbow stimulation site across the elbow segment on this study. The left ulnar to FDI compound muscle action potential was remarkable for a decreased amplitude and a decreased conduction velocity across the elbow segment. Of note there was a conduction block noted between the below elbow stimulation site and the above elbow stimulation site across the elbow segment on this study. Concentric needle EMG was not performed on this study at the patients request. Impression: This is a limited but abnormal study. There is electrophysiological evidence of a left ulnar neuropathy which localizes to the elbow segment and is moderate in severity electrophysiologically. There is no evidence of a mononeuropathy affecting the right upper extremity on this study. This study cannot comment on the presence or absence of a right or left sided cervical radiculopathy as the patient did complete the EMG portion of the study. All normal values/reference values for this study were taken from the [facility] reference values which were created in 2019. This dictation was done by using the myhub dictation system. It has been proofread but still may contain unrecognized voice recognition errors. [employer] Work Phone: 03-13-2023 Procedure note Associated Ord er(s): NERVE CONDUCTION TEST WITH EMG [facility] EMG/NCS report: Patient: Salma Posadas AGE: 72 y.o. Handedness: Right Gender: Female Referring physician: Xiomara Fowler DO Study date: 03/13/23 Reason for referral: Patient presents with left hand weakness and numbness as well as neck pain. Patient also has paresthesia in the left hand more than the right hand. Nerve conduction study only of the left upper and right upper extremity is done to evaluate for mononeuropathy affecting the right or left arm vs. Right or left cervical radiculopathy. Summary: The right median sensory nerve action potential was unremarkable. The right ulnar sensory nerve action potential was unremarkable. The left median sensory nerve action potential was unremarkable. The left ulnar sensory nerve action potential was unremarkable. The right median to ulnar palmar comparison mixed nerve action potential was unremarkable. The left median to ulnar palmar comparison mixed nerve action potential was unremarkable. The right radial sensory nerve action potential was unremarkable. The left radial sensory nerve action potential was unremarkable. The left median to radial thumb comparison study was unremarkable. The left median to ulnar ring finger comparison study was unremarkable. The right median to APB compound muscle action potential was unremarkable. The left median to APB compound muscle action potential was unremarkable. The right ulnar to ADM compound muscle action potential was unremarkable. The left ulnar to ADM compound muscle action potential was remarkable for a decreased amplitude and a decreased conduction velocity across the elbow segment. Of note there was a partial conduction block (amplitude drop of 38%) noted between the below elbow stimulation site and the above elbow stimulation site across the elbow segment on this study. The left ulnar to FDI compound muscle action potential was remarkable for a decreased amplitude and a decreased conduction velocity across the elbow segment. Of note there was a conduction block noted between the below elbow stimulation site and the above elbow stimulation site across the elbow segment on this study. Concentric needle EMG was not performed on this study at the patients request. Impression: This is a limited but abnormal study. There is electrophysiological evidence of a left ulnar neuropathy which localizes to the elbow segment and is moderate in severity electrophysiologically. There is no evidence of a mononeuropathy affecting the right upper extremity on this study. This study cannot comment on the presence or absence of a right or left sided cervical radiculopathy as the patient did complete the EMG portion of the study. All normal values/reference values for this study were taken from the [facility] reference values which were created in 2019. This dictation was done by using the myhub dictation system. It has been proofread but still may contain unrecognized voice recognition errors. documented in this encounter [facility] 02-22-2023 Miscellaneous Notes Reviewed chart. Refill appropriate. RX sent. Prescription Request: Last medication check: 10-25-22 Last physical exam: 05-17-22 Next scheduled appointment: 05-02-23 Last date of refill on this medication 11/23/22 documented in this encounter [facility] 02-22-2023 Telephone encounter Note Reviewed chart. Refill appropriate. RX sent. [facility] 02-22-2023 Telephone encounter Note Prescription Request: Last medication check: 10-25-22 Last physical exam: 05-17-22 Next scheduled appointment: 05-02-23 Last date of refill on this medication 11/23/22 [facility] 02-14-2023 History of Present illness Narrative [facility] NOTE Chief complaint: Weakness and Numbness History of present illness: Salma Posadas is a 72 y.o. right handed female who presents in followup with numbness and weakness. She has a history of RSD. In 2004 she went to [facility] due to neck pain between her shoulder blade and spine. She layed flat on her back for 5-6 days. Her pain worsened the longer she was in the hospital. She got pain in the entire left arm circumferentially for three days. It was extreme pain. This lasted for 2-3 days. Then after that the pain she became weak in the left hand and forearm. She went to physical therapy for this. Her strength in her left arm is much improved but not as good as it is in her right arm. Her left arm pain is still there but much improved since the intial pain. Her left arm is in constant pain. Her pain is treated through her PCP Dr. Durbin. She saw a Neurologist at [place]. She is on Lyrica [address] Durbin. She saw Dr. Flores and Dr. Mitchell at [facility] neurology at one time. 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 She states that she had 100 stitches put in at that time. In 2007 she had a left ear surgery sac decompression which helped her vertigo about 90% for two years. She had significant pain after the surgery. 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 She had dyslexia and memory issues for 6 months after the surgery. She is not having vertigo at this time. Tilt table testing in the past showed mixed cardioinhibitory and vasodepressor response to tilt table. Her vertigo is much improved overall. She did see Dr. Miller in ENT. 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 The pain in her left arm is an aching pain. She denies numbness in the left arm. She is on Hydrocodone with Tylenol BID through her PCP as well. EMG/NCS of the arms bilaterally in July of 2020 showed evidence of a borderline/very mild left median neuropathy at the Wrist/carpal tunnel syndrome. EMG was not at the patients request. She has not been seen since May of 2020. Today she states that she has been diagnosed with fibromyalgia and rheumatoid arthritis since she was last seen. Her in 2021 and she is sad about this. She states that in late November 2022 she noticed pain in the left arm. It was a dull ache 9/10 in severity. She then became nauseated and dizzy. She called the [facility] provider relations specialist nurse. She suggested going to the emergency room. She didn't go to the ER. She states that the pain in her left arm lasted 3 days. She states that she will get the pain intermittently in her left arm but it is not as bad at this time. She denies numbness in that arm. She feels weak in her left arm and hand which she feels is new since November 2022. She has difficulty with fine motor movements in the left hand which is new since November 2022 and started about 1 week after the pain. She states that she has had some atrophy of her intrinsic hand muscles for the last month. She has chronic neck pain as well. Review of Systems: Neurological: As above General/constitutional: No fevers, weight change, chills, fatigue, night sweats Skin: No rash, edema, bruising HEENT: No diplopia, dysphagia, dizziness, tinnitus, hearing loss Cardiovascular: No dyspnea or chest pain, palpitaitons, peripheral edema Respiratory: No SOB, wheezing, rhonchi, cough or rales Gastrointestinal: No loss of bowel control, constipation, diarrhea, abdominal pain, nausea or vomiting Genitourinary: No loss of bladder control, no sexual dysfunction, hematuria, dysuria Musculoskeletal: No myalgias, positive for weakness, atrophy, joint pain, neck pain and back pain Psychiatric: No depression, anxeity, hallucinations, delusions Endocrine: No changes to hair or nails, abnormal sweating, hot flashess, excessive thirst, polyuria Hematologic: No easy bruising, bleeding, swollen lymph nodes Unless directly addressed in ROS or in assessment and plan, patient was instructed to followup positive ROS findings with PCP. Past Medical History: Diagnosis Date Hypothyroidism Orthostatic hypotension Parsonage-Pettit syndrome Pleurisy 05/2020 RSD (reflex sympathetic dystrophy) Vertigo Past Surgical History: Procedure Laterality Date CHOLECYSTECTOMY COLONOSCOPY Family History Problem Relation Name Age of Onset Cancer Father pt is unaware Other (24758) Mother Social History Socioeconomic History Marital status: Spouse name: Not on file Number of children: Not on file Years of education: Not on file Highest education level: Not on file Occupational History Not on file Tobacco Use Smoking status: Never Smokeless tobacco: Never Substance and Sexual Activity Alcohol use: No Alcohol/week: 0.0 standard drinks of alcohol Drug use: No Sexual activity: Not on file Other Topics Concern Not on file Social History Narrative Not on file Social Determinants of Health Financial Resource Strain: Not on file Food Insecurity: Not on file Transportation Needs: Not on file Physical Activity: Not on file Stress: Not on file Social Connections: Not on file Intimate Partner Violence: Not on file Housing Stability: Not on file No Known Allergies Current Outpatient Medications Medication Sig Dispense Refill busPIRone (Buspar) 10 MG tablet take 1 tablet by mouth twice a day 180 tablet 1 doxycycline (Vibramycin) 50 MG capsule Take 50 mg by mouth in the morning. fluorometholone (FML) 0.1 % ophthalmic suspension Administer 1 drop into both eyes in the morning and 1 drop before bedtime. HYDROcodone-acetaminophen (Tekamah) 5-325 MG tablet Take 1 tablet by mouth every 6 hours as needed for severe pain (7-10). 60 tablet 0 levothyroxine (Synthroid, Levoxyl) 88 MCG tablet Take 1 tablet (88 mcg) by mouth daily. 90 tablet 1 LORazepam (Ativan) 2 MG tablet TAKE 1/2 TABLET BY MOUTH EVERY 6 HOURS NEEDED FOR ANXIETY FOR UP TO 30 DAYS 60 tablet 0 omeprazole (PriLOSEC) [address] capsule take 1 capsule by mouth EVERY MORNING BEFORE BREAKFAST 90 capsule 1 pregabalin (Lyrica) 225 MG capsule Take 1 capsule (225 mg) by mouth 3 times daily. 90 capsule 0 rosuvastatin (Crestor) 20 MG tablet take 1 tablet by mouth once daily 90 tablet 0 triamterene-hydrochlorothiazide (Maxzide-25) 37.5-25 MG tablet Take 1 tablet by mouth daily. 90 tablet 1 zolpidem (Ambien) 10 MG tablet Take 1 tablet (10 mg) by mouth Nightly as needed for sleep. 30 tablet 0 No current facility-administered medications for this visit. Physical Exam: Vitals: 02/14/23 1322 BP: 103/67 Pulse: 69 General: In no acute distress. HENT: Normal external appearance of ears and nose. Neurological Examination Mental status: awake and alert; oriented to person, place, year, and month; good attention. Normal mood and affect. Normal insight into condition. Speech/language: fluent; comprehension intact; object naming intact; repetition intact Cranial nerves: CN II: Visual mathis intact to confrontation. PERRL. Normal conjunctivae and lids. Motor: Atrophy noted in left hand FDI and ADM and interossei muscles. SA EE EF WE WF DI HF KE KF DF PF Finger flexors 4/5 Right 5 5 5 5 5 5 5 5 5 5 5 5 Left 5- 5 5 5 5 3+/4- 5 5 5 5 5 3+ Reflexes: Right Left Biceps 2 2 Triceps 1 1 Brachioradialis 2 2 Patellar 2 2 Achilles 2 2 Jaw jerk Lopez Babinski Down Down Coordination: Vyklzz-og-mugg intact bilaterally. Lqgm-rd-cyfz intact bilaterally. Rapid alternating movements are normal. Sensation: Light touch: Intact throughout Pin prick: Intact throughout Temperature: Intact throughout Vibration: Intact throughout Proprioception: Intact throughout Gait: Normal stride length, arm swing, and base width. Assessment and Plan: Diagnosis Plan 1. Cervical radiculopathy Nerve conduction test with EMG MR cervical spine wo contrast Sedimentation rate, automated C-reactive protein Sedimentation rate, automated C-reactive protein 2. Cervical spinal stenosis Nerve conduction test with EMG MR cervical spine wo contrast Sedimentation rate, automated C-reactive protein Sedimentation rate, automated C-reactive protein 3. Complex regional pain syndrome type 1 of left upper extremity Nerve conduction test with EMG MR cervical spine wo contrast Sedimentation rate, automated C-reactive protein Sedimentation rate, automated C-reactive protein 4. Left hand weakness Nerve conduction test with EMG MR cervical spine wo contrast Sedimentation rate, automated C-reactive protein Sedimentation rate, automated C-reactive protein 5. Left arm pain Nerve conduction test with EMG MR cervical spine wo contrast Sedimentation rate, automated C-reactive protein Sedimentation rate, automated C-reactive protein At this time Mrs. Posadas is stable but has weakness in the left arm. At this time I will check an EMG/NCS of the arms bilaterally to look for any active right or left cervical radiculopathy and to rule out a focal mononeuropathy affecting the left arm at this time. She does have intrinsic hand muscle atrophy involving the ADM and FDI and I am concerned about a focal 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 This will be check for on her EMG/NCS. She also will have an MRI cervical spine to rule out any acute abnormality of the left sided C7 and C8 nerve root given her hand weakness. She will have a CRP and ESR checked as well. 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 It is theoretically possible but not common to have recurrent parsonage pettit syndrome. Her acute left arm pain followed by left arm weakness is suspicious but I want to rule out more common etiologies of her symptoms at this time included left cervical radiculopathy and left cubital tunnel syndrome. She has an appointment with cardiology and I did encourage her to keep that given her nausea and left arm symptoms in November that have resolved now. We will see her back in the outpatient neurology lab in 3 months. 35 minutes on the day of the encounter was spent in face to face time counseling the patient on her condition, answering questions, doing a chart and imaging review and performing a physical examination. This dictation was done by using the myhub dictation system. It has been proofread but still may contain unrecognized voice recognition errors. documented in this encounter [facility] 01-16-2023 Telephone encounter Note Prescription Request: Last medication check: 10-25-22 Last physical exam: 05-17-22 Next scheduled appointment: 05-02-23 Last date of refill on this medication 07/31/22 [facility] 01-16-2023 Miscellaneous Notes Prescription Request: Last medication check: 10-25-22 Last physical exam: 05-17-22 Next scheduled appointment: 05-02-23 Last date of refill on this medication 07/31/22 documented in this encounter [facility] 01-01-2023 Telephone encounter Note Prescription Request: Last medication check: 10-25-22 Last physical exam: 05-17-22 Next scheduled appointment: 05-02-23 Last date of refill on this medication 06-26-22 [facility] 01-01-2023 Miscellaneous Notes Prescription Request: Last medication check: 10-25-22 Last physical exam: 05-17-22 Next scheduled appointment: 05-02-23 Last date of refill on this medication 06-26-22 documented in this encounter [facility] 12-25-2022 Note Reviewed chart. Refi ll appropriate. Rx sent. Oarrs reviewed and consistent with treatment plan. [facility] 12-25-2022 Telephone encounter Note Reviewed chart. Refill appropriate. Rx sent. Oarrs reviewed and consistent with treatment plan. [facility] 12-25-2022 Miscellaneous Notes Reviewed chart. Refill appropriate. Rx sent. Oarrs reviewed and consistent with treatment plan. [facility] [place] 12/07/22 [facility] Lyrica 06/29/22 Ordering provider: Date of last office visit: 10/25/2022 Date of next office visit: 05/02/2023 Updated/Validated preferred pharmacy: Yes Patient instructed to contact the pharmacy prior to picking up the medication: no (1) Medication name: Pt is out of this medication HYDROcodone-acetaminophen (Tekamah) 5-325 MG tablet Medication dosage: Monthly quantity needed: 60 How many day supply requestin days Medication route: oral (PO) Medication administration time(s): every 6 hours If taking medication PRN, reason for taking medication: N/A If this is a controlled substance do you receive this or any other controlled medication from any other doctor or facility: No Date of last refill (see medication tab): 12/01/2022 (2) Medication name: pregabalin (Lyrica) 225 MG capsule Medication dosage: Monthly quantity needed: 90 How many day supply requestin days Medication route: oral (PO) Medication administration time(s): 3 times a day If taking medication PRN, reason for taking medication: N/A If this is a controlled substance do you receive this or any other controlled medication from any other doctor or facility: No Date of last refill (see medication tab): 12/01/2022 documented in this encounter [facility] [email or web address] 12-25-2022 Telephone encounter Note [facility] [place] 12/07/22 [facility] Lyrica 06/29/22 [facility] [email or web address] 12-25-2022 Telephone encounter Note Ordering provider: Date of last office visit: 10/25/2022 Date of next office visit: 05/02/2023 Updated/Validated preferred pharmacy: Yes Patient instructed to contact the pharmacy prior to picking up the medication: no (1) Medication name: Pt is out of this medication HYDROcodone-acetaminophen (T[place]) 5-325 MG tablet Medication dosage: Monthly quantity needed: 60 How many day supply requestin days Medication route: oral (PO) Medication administration time(s): every 6 hours If taking medication PRN, reason for taking medication: N/A If this is a controlled substance do you receive this or any other controlled medication from any other doctor or facility: No Date of last refill (see medication tab): 12/01/2022 (2) Medication name: pregabalin (Lyrica) 225 MG capsule Medication dosage: Monthly quantity needed: 90 How many day supply requestin days Medication route: oral (PO) Medication administration time(s): 3 times a day If taking medication PRN, reason for taking medication: N/A If this is a controlled substance do you receive this or any other controlled medication from any other doctor or facility: No Date of last refill (see medication tab): 12/01/2022 [email or web address] 12-07-2022 Telephone encounter Note Pt stopped in office and signed csma [email or web address] 12-07-2022 Miscellaneous Notes Pt stopped in office and signed csma Left detailed voicemail to stop in office or no refills can be sent in. Sent [facility] message advising her to stop in office carlene to sign. Rx sent, OARRS report done, no inconsistencies, it looks like she needs to sign a new CS agreement. Patient was wondering if the office can send both prescription in as she does not want to keep going back and fourth to the pharmacy. Please advise. Ordering provider: Dr. Durbin Date of last office visit: 10/25/22 Date of next office visit: 05/02/23 Updated/Validated preferred pharmacy: Yes Patient instructed to contact the pharmacy prior to picking up the medication: Yes (1) Medication name: pregabalin (Lyrica) 225 MG capsule Medication dosage: 225 mg (Miligrams Monthly quantity needed: 90 How many day supply requestin days Medication route: oral (PO) Medication administration time(s): 3 times a day (TID) If taking medication PRN, reason for taking medication: N/A If this is a controlled substance do you receive this or any other controlled medication from any other doctor or facility: No Date of last refill (see medication tab): 10/25/22 (2) Medication name: HYDROcodone-acetaminophen (Tekamah) 5-325 MG tablet Medication dosage: 325 mg (Miligrams Monthly quantity needed: 60 How many day supply requestin days Medication route: oral (PO) Medication administration time(s): as needed (PRN) If taking medication PRN, reason for taking medication: N/A If this is a controlled substance do you receive this or any other controlled medication from any other doctor or facility: No Date of last refill (see medication tab): 11/03/22 documented in this encounter [facility] 12-05-2022 Telephone encounter Note Left detailed voicemail to stop in office or no refills can be sent in. [facility] 12-05-2022 Miscellaneous Notes Left detailed voicemail to stop in office or no refills can be sent in. Sent [facility] message advising her to stop in office carlene to sign. Rx sent, OARRS report done, no inconsistencies, it looks like she needs to sign a new CS agreement. Patient was wondering if the office can send both prescription in as she does not want to keep going back and fourth to the pharmacy. Please advise. Ordering provider: Dr. Durbin Date of last office visit: 10/25/22 Date of next office visit: 05/02/23 Updated/Validated preferred pharmacy: Yes Patient instructed to contact the pharmacy prior to picking up the medication: Yes (1) Medication name: pregabalin (Lyrica) 225 MG capsule Medication dosage: 225 mg (Miligrams Monthly quantity needed: 90 How many day supply requestin days Medication route: oral (PO) Medication administration time(s): 3 times a day (TID) If taking medication PRN, reason for taking medication: N/A If this is a controlled substance do you receive this or any other controlled medication from any other doctor or facility: No Date of last refill (see medication tab): 10/25/22 (2) Medication name: HYDROcodone-acetaminophen (Tekamah) 5-325 MG tablet Medication dosage: 325 mg (Miligrams Monthly quantity needed: 60 How many day supply requestin days Medication route: oral (PO) Medication administration time(s): as needed (PRN) If taking medication PRN, reason for taking medication: N/A If this is a controlled substance do you receive this or any other controlled medication from any other doctor or facility: No Date of last refill (see medication tab): 11/03/22 documented in this encounter [facility] 12-01-2022 Telephone encounter Note Sent mychart message advising her to stop in office carlene to sign. [facility] 12-01-2022 Telephone encounter Note Rx sent, OARRS report done, no inconsistencies, it looks like she needs to sign a new CS agreement. [facility] 11-30-2022 Telephone encounter Note Patient was wondering if the office can send both prescription in as she does not want to keep going back and fourth to the pharmacy. Please advise. Ordering provider: Dr. Durbin Date of last office visit: 10/25/22 Date of next office visit: 05/02/23 Updated/Validated preferred pharmacy: Yes Patient instructed to contact the pharmacy prior to picking up the medication: Yes (1) Medication name: pregabalin (Lyrica) 225 MG capsule Medication dosage: 225 mg (Miligrams Monthly quantity needed: 90 How many day supply requestin days Medication route: oral (PO) Medication administration time(s): 3 times a day (TID) If taking medication PRN, reason for taking medication: N/A If this is a controlled substance do you receive this or any other controlled medication from any other doctor or facility: No Date of last refill (see medication tab): 10/25/22 (2) Medication name: HYDROcodone-acetaminophen (Tekamah) 5-325 MG tablet Medication dosage: 325 mg (Miligrams Monthly quantity needed: 60 How many day supply requestin days Medication route: oral (PO) Medication administration time(s): as needed (PRN) If taking medication PRN, reason for taking medication: N/A If this is a controlled substance do you receive this or any other controlled medication from any other doctor or facility: No Date of last refill (see medication tab): 11/03/22 [facility] 11-23-2022 Telephone encounter Note Reviewed chart. Refill appropriate. RX sent. [facility] 11-23-2022 Miscellaneous Notes Reviewed chart. Refill appropriate. RX sent. Prescription Request: Last medication check: 10/25/22 Last physical exam: 05/17/22 Next scheduled appointment: 05/02/23 Last date of refill on this medication 08/28/22 documented in this encounter [email or web address] 11-23-2022 Telephone encounter Note Prescription Request: Last medication check: 10/25/22 Last physical exam: 05/17/22 Next scheduled appointment: 05/02/23 Last date of refill on this medication 08/28/22 [facility] 10-25-2022 History of Present illness Narrative Images from the original note were not included. 10/25/2022 Salma Posadas (: 1950) is a 72 y.o. female , Established patient, here for evaluation of the following chief complaint(s): Hypertension, Hyperlipidemia, Hypothyroidism, Anxiety, Depression, Medication Check, and Health Maintenance (Colon--referral, mammo--has been ordered needs to do, pneumo--declines, Shingles--declines, COVID 4--has not had, Tdap--declines) ASSESSMENT/PLAN: 1. Primary insomnia - Comprehensive metabolic panel - Stable with PRN Ambien. Will continue current treatment plan. 2. Primary hypertension - Comprehensive metabolic panel - Stable with Maxzide. Will continue current treatment plan. 3. Obesity (BMI 30.0-34.9) - Comprehensive metabolic panel - Encouraged healthy diet and regular exercise. 4. Acquired hypothyroidism - Comprehensive metabolic panel - Stable with Levothyroxine. Will continue current treatment plan. 5. Mild episode of recurrent major depressive disorder (HCC) - Comprehensive metabolic panel - Stable with Buspar. Will continue current treatment plan. 6. Anxiety - Comprehensive metabolic panel - Stable with Buspar and PRN Lorazepam. Will continue current treatment plan. 7. Complex regional pain syndrome type 1 of left upper extremity - Comprehensive metabolic panel - Stable with PRN Vicodin. Will continue current treatment plan. 8. Reflex sympathetic dystrophy - pregabalin (Lyrica) 225 MG capsule; Take 1 capsule (225 mg) by mouth 3 times daily., Starting Sun10/25/2022, Normal - Stable with Lyrica. Will continue current treatment plan. - OARRS report reviewed with no discrepancies. CSA signed in June 2022. 9. Inflammatory polyarthropathy (HCC) - Not well controlled. Will follow up with specialist as directed. 10. Fibromyalgia - pregabalin (Lyrica) 225 MG capsule; Take 1 capsule (225 mg) by mouth 3 times daily., Starting Sun10/25/2022, Normal - Stable with Lyrica. Will continue current treatment plan. - OARRS report reviewed with no discrepancies. CSA signed in June 2022. 11. Hyperlipidemia, unspecified hyperlipidemia type - Comprehensive metabolic panel - Lipid panel - Stable with Rosuvastatin. Will notify of blood work results.. 12. Screening for colon cancer - [facility] [place] Follow up in about 6 months (around 04/27/2023) for AWV and fasting blood work. SUBJECTIVE/OBJECTIVE: JAIRO Alexey Marsh presents today for follow up on her chronic health conditions. Insomnia: Will take Ambien as needed for sleep at night. Currently averaging 8-10 hours of sleep per night- not consecutive. Hypertension: Takes Maxzide daily as prescribed. Does not check her BP at home. BP is stable today 130/70. Obesity: Has a treadmill and plans to start walking on it for 30 minutes each day. Strives for a healthy diet overall. Hypothyroidism: Takes Levothyroxine daily as prescribed. Due to have her TSH rechecked and will check this today. Depression/Anxiety: Takes Buspar twice a day and Lorazepam as needed. Her recently and this has been difficult. 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 Was prescribed Hydroxychloroquine and has stopped taking this because she did not like how she felt on it. Has followed up with neurologists and other specialist for her chronic issues and does not feel she has made much progress. Will take Tekamah and Lyrica as needed for pain and this is prescribed by Dr. Durbin. Hyperlipidemia: Takes Rosuvastatin daily as prescribed. From what I can see she has not had her cholesterol levels checked since 2020, so we will check this today while she is here. Health Maintenance: Has seen a cardiovascular operating room nurse for a skin cancer screening check- Dr. Dasilva. Would like a colonoscopy for colon cancer screening. Mammogram- had an order placed on 05/17/22- still needs to call and schedule this. Declines a pneumococcal vaccination. Declines to be vaccinated for shingles. Vaccinated for COVID-19 x3 with most recent dose on 02/01/21- declines additional doses. Declines a Tdap vaccination. DEXA: 05/01/19. Review of Systems Constitutional: Negative for chills and fever. Respiratory: Negative for chest tightness and shortness of breath. Cardiovascular: Negative for chest pain, palpitations and leg swelling. Gastrointestinal: Negative for abdominal distention, abdominal pain, blood in stool, constipation and diarrhea. Musculoskeletal: Positive for arthralgias and myalgias. Skin: Negative for color change, pallor, rash and wound. Hematological: Does not bruise/bleed easily. Psychiatric/Behavioral: Positive for dysphoric mood. Negative for self-injury and suicidal ideas. The patient is nervous/anxious. Vitals: 10/25/22 1042 BP: 130/70 Pulse: 71 SpO2: 96% Weight: 202 lb (91.6 kg) Height: 5' 6 (1.676 m) Last 3 JOON-7 Scores 10/24/2022 1300 JOON-7 Total Score: 10 Last 3 PHQ-2 Scores 10/24/2022 1309 Patient Health Questionnaire-2 Score: 5 Last 3 PHQ-9 Scores 10/24/2022 1309 Patient Health Questionnaire-9 Score: 5 Physical Exam Constitutional: General: She is not in acute distress. Appearance: She is obese. She is not ill-appearing or diaphoretic. Cardiovascular: Rate and Rhythm: Normal rate and regular rhythm. Pulses: Normal pulses. Heart sounds: Normal heart sounds. No murmur heard. No friction rub. Pulmonary: Effort: Pulmonary effort is normal. Breath sounds: Normal breath sounds. No wheezing, rhonchi or rales. Abdominal: General: Abdomen is protuberant. Bowel sounds are normal. Palpations: Abdomen is soft. There is no hepatomegaly, splenomegaly or mass. Tenderness: There is no abdominal tenderness. Skin: General: Skin is warm and dry. Coloration: Skin is not pale. Findings: No erythema. Neurological: Mental Status: She is alert and oriented to person, place, and time. Psychiatric: Attention and Perception: Attention and perception normal. Mood and Affect: Affect is tearful. Speech: Speech normal. Behavior: Behavior normal. Behavior is cooperative. Thought Content: Thought content normal. Cognition and Memory: Cognition and memory normal. Judgment: Judgment normal. An electronic signature was used to authenticate this note. LYNN Ortiz CNP 10/25/2022 11:19 AM documented in this encounter [facility] 10-09-2022 Telephone encounter Note Rx sent. OARRS report reviewed with no discrepancies. CSA signed in June 2022. Follow up as scheduled. [facility] 10-09-2022 Miscellaneous Notes Rx sent. OARRS report reviewed with no discrepancies. CSA signed in June 2022. Follow up as scheduled. Medication name: zolpidem Medication dosage: 10 mg (Miligrams Monthly quantity needed: 30 How many day supply requestin days Medication route: oral (PO) Medication administration time(s): bedtime (HS) If taking medication PRN, reason for taking medication: N/A If this is a controlled substance do you receive this or any other controlled medication from any other doctor or facility: No Ordering provider: Flory Date of last office visit: 07.12.22 Date of next office visit: 10.25.22 Date of last refill: (see medication tab): 08.31.22 Updated/Validated preferred pharmacy: Yes Patient instructed to contact the pharmacy prior to picking up the medication: Yes documented in this encounter [facility] 10-09-2022 Telephone encounter Note Medication name: zolpidem Medication dosage: 10 mg (Miligrams Monthly quantity needed: 30 How many day supply requestin days Medication route: oral (PO) Medication administration time(s): bedtime (HS) If taking medication PRN, reason for taking medication: N/A If this is a controlled substance do you receive this or any other controlled medication from any other doctor or facility: No Ordering provider: Flory Date of last office visit: 07.12.22 Date of next office visit: 10.25.22 Date of last refill: (see medication tab): 08.31.22 Updated/Validated preferred pharmacy: Yes Patient instructed to contact the pharmacy prior to picking up the medication: Yes [facility] 08-28-2022 Telephone encounter Note Rx sent. Follow up as scheduled. [facility] 08-28-2022 Miscellaneous Notes Rx sent. Follow up as scheduled. Prescription Request: Last medication check: 02/15/22 Last physical exam: 05/17/22 Next scheduled appointment: 10/25/22 Last date of refill on this medication 03/10/22 90 days 1 refill documented in this encounter [facility] 08-28-2022 Telephone encounter Note Prescription Request: Last medication check: 02/15/22 Last physical exam: 05/17/22 Next scheduled appointment: 10/25/22 Last date of refill on this medication 03/10/22 90 days 1 refill [facility] 07-25-2022 Telephone encounter Note Prescription Request: Last medication check: 07/12/22 Last physical exam: 05/17/22 Next scheduled appointment: 10/25/22 Last date of refill on this medication 05/04/22 30 days 2 refills [facility] 07-25-2022 Miscellaneous Notes Prescription Request: Last medication check: 07/12/22 Last physical exam: 05/17/22 Next scheduled appointment: 10/25/22 Last date of refill on this medication 05/04/22 30 days 2 refills documented in this encounter [facility] 06-26-2022 Telephone encounter Note Scheduled for 10/25/22. [facility] 06-26-2022 Miscellaneous Notes Scheduled for 10/25/22. Rx sent. Due for follow up in October for medication maintenance- please schedule. Prescription Request: Last medication check: 05/01/22 Last physical exam: 05/17/22 Next scheduled appointment: none CSA on file (date): na Last urine drug screen: na Last date of refill on this medication 12/26/21 90 day 1 refill documented in this encounter [facility] 06-26-2022 Telephone encounter Note Rx sent. Due for follow up in October for medication maintenance- please schedule. 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 Pt would like for to take another look to see if she can do the cancer removal or just go to appt Sunday. 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 Pt would like for to take another look to see if she can do the cancer removal or just go to appt Sunday. She will take any appt if she cant answer her phone while at work Best time of day caller can be reached: any Patient advised that office/PCP has 24-48 business hours to return their call: No documented in this encounter [facility] 05-17-2022 Note Will provide additio nal pain medication for post procedure x 3 days (dermatological) [facility] 05-05-2022 Note OV notes, labs, refe rral and insurance card faxed. Patient notified. [facility] 05-04-2022 Note Please call and let her know I placed a referral to : Dr. Sherry Macias [facility] [address] [place] [address] [facility] 06-22-2020 Note HNO ID: [id number] Author: Ward Perez Service: ? Author Type: Physician Type: Progress Notes Filed: 06/23/2020 4:08 PM Note Text: NEUROLOGY CONSULT - VIRTUAL VISIT Done as part of COVID pandemic. Pt at home. in [place], [place]. Date of Evaluation: June 22, 2020 Referring physician: Dr. 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 Fowler. Back in approximately 2004 but year not clear she had onset of problem. . She now has persistent pain. In 2004, she went to local ED for evaluation of pain b/t her shoulder blades and this pain was extreme and lasted for days. The left arm hurt too. This pain lasted for 3 days. It was pain of 50 on a 10 scale then went down to about a 20. She underwent negative cardiac eval at [facility] and was in hospital for 5 days. She also had developed some weakness in her arm and she thinks an MRI of the c-spine w/o diagnosis. At that point, her PCP was ill and she was being evaluated by various providers at each visit but reports care continuity was limited. Did see a neurologist back then and saw Dr. Chava Flores locally perhaps once. She had it seems EMG during this time. Had this several times over the course of the problem. Her arm weakness improved over time. Went to PT. Left hand was weakest part particularly fingers 4 and 5.Still has trouble wearing wedding band due to pain in the 4 and 5 digits in that hand. Skin still feels as if it is burned at times. Currently her issue is pain in her left arm which has been persistent since the onset of her problem. Has pain in her left arm /shoulder down to her left shoulder. Pain into neck and around ear at times too. There is pain in heft arm, across her chest and some persistent pain in the area around her left ear and occipital region. Constant. After her neurology visit recently, she had EMG/NCS scheduled but upon reporting to appt the appt had to be canceled. May be rescheduled. This is still unclear. She also has h/o sac compression of her left ear for persistent vertigo, ? Meniere's disease. 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 Also has h/o left leg surgery for presumed cancer w/ extensive surgical incision and has some persistent pain from this too. Referral note indicates this referral was placed for chronic pain evaluation, Dr. Lara was requested. Appt made w/ me in [facility] based on dx of P[place] Pettit Syndrome. She is taking Lyrica via her PCP. MED HX. 1) Hypothyroidism 2) Possible h/o A fib in past 3) Left ear surgery for refractory dizziness 4) Skin lesion resection from left leg, ? malignancy, done at [facility] in 2009 5) Cholecystectomy Current Outpatient Medications Medication Sig - busPIRone (BUSPAR) 5 mg tablet 7.5 mg. - pregabalin (LYRICA) 225 mg capsule Take 225 mg by mouth. - levothyroxine 125 mcg cap - LORazepam (ATIVAN) 0.5 mg 0.5 mg. - fluorometholone (FML LIQUID FILM) 0.1 % ophthalmic suspension instill 1 drop into both eyes three times a day - zolpidem (AMBIEN) 10 mg zolpidem 5 mg tablet - omeprazole (PRILOSEC) 40 mg capsule take 1 capsule by mouth every morning before breakfast - rosuvastatin (CRESTOR) 20 mg tablet Take 20 mg by mouth once daily. - MECLIZINE 25 MG TAB Take one(1) tablet two(2) times daily. - DYAZIDE 37.5 MG-25 MG CAP Take one (1) capsule daily. No current facility-administered medications for this visit. 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 Social History Tobacco Use - Smoking status: Not on file Substance Use Topics - Alcohol use: Not on file - Drug use: Not on file PATIENT ENTERED DATA: [facility] and Fall Risk 06/22/2020 When you leave your home, do you usually Walk independently How many times have you fallen in the past month? 2 How many times have you fallen in the past year? 7 PROMIS-10 PROMIS 10 06/22/2020 In general, would you say your health is: Fair In general, would you say your quality of life is: Good In general, how would you rate your physical health? Fair In general, how would you rate your mental health, including your mood and your ability to think? Good In general, how would you rate your satisfaction with (more content not included)... [facility] documented in this encounter [facility] Work Phone: Evaluation note* Diagnosis Acquired hypothyroidism Unspecified hypothyroidism [facility] Diagnosis Primary insomnia- Primary Persistent disorder of initiating or maintaining sleep Primary hypertension Unspecified essential hypertension Obesity (BMI 30.0-34.9) Acquired hypothyroidism Unspecified hypothyroidism Mild episode of recurrent major depressive disorder (HCC) Anxiety Anxiety state, unspecified Complex regional pain syndrome type 1 of left upper extremity Reflex sympathetic dystrophy Unspecified reflex sympathetic dystrophy Inflammatory polyarthropathy (HCC) Unspecified inflammatory polyarthropathy Fibromyalgia Unspecified myalgia and myositis Hyperlipidemia, unspecified hyperlipidemia type Screening for colon cancer Special screening for malignant neoplasms, colon [facility] Diagnosis Reflex sympathetic dystrophy Unspecified reflex sympathetic dystrophy Fibromyalgia Unspecified myalgia and myositis [facility] Diagnosis Reflex sympathetic dystrophy Unspecified reflex sympathetic dystrophy Fibromyalgia Unspecified myalgia and myositis documented [facility] Diagnosis Primary insomnia Persistent disorder of initiating or maintaining sleep [facility] Diagnosis Cervical radiculopathy- Primary Brachial neuritis or radiculitis nos Cervical spinal stenosis Spinal stenosis in cervical region Complex regional pain syndrome type 1 of left upper extremity Left hand weakness Muscle weakness (generalized) Left arm pain Pain in soft tissues of limb documented [facility] this [facility] Diagnosis Cervical spinal stenosis Spinal stenosis in cervical region Complex regional pain syndrome type 1 of left upper extremity Cervical radiculopathy Brachial neuritis or radiculitis nos Left hand weakness Muscle weakness (generalized) Left arm pain Pain in soft tissues of limb documented [facility] this [facility] Diagnosis Reflex sympathetic dystrophy Unspecified reflex sympathetic dystrophy Primary insomnia Persistent disorder of initiating or maintaining sleep Fibromyalgia Unspecified myalgia and myositis documented in this encounter [facility] Diagnosis Irritation of oral cavity- Primary [facility] Consultation (Routine) - Pending Review Specialty Diagnoses / Procedures Referred By Joe eason Referred To Contact General Surgery Diagnoses Screening for colon cancer Procedures ID OFFICE/OUTPATIENT [facility] 60-74 MINUTES Curtis Cintron APRN - CNP [address] [place] [address] [facility] Gen Surg [address] [facility] [address] [place] [address] Referral ID Status Reason Start Date Expiration Date Visits Requested Visits Authorized [id number] Pending Review Specialty Services Required 10/25/2022 10/25/2023 1 1 [facility] Advance Directives No Advanced Directives Records FoundDocuments on File Type Date Recorded Patient Stave Hewer Expl anation ACP-Advance Directive ACP-Power [employer] Novel[employer] Maker Summary Purpose Family History No Family History Records FoundNo Family History Records FoundNo Family History Records Found Reason for Referral Specialty Diagnoses / Procedures Referred By Contmt t Referred To Contact Radiology Diagnoses Cervical spinal stenosis Complex regional pain syndrome type 1 of left upper extremity Cervical radiculopathy Left hand weakness Left arm pain Procedures MR cervical spine wo contrast Xiomara Fowler, DO [address] [place] [address] Referral ID Status Reason Start Date Expiration Date V isits Requested Visits Authorized [id number] Pending Review 02/14/2023 02/14/2024 1 1 Specialty Diagnoses / Procedures Referred By Contac t Referred To Contact Neurology Diagnoses Cervical spinal stenosis Complex regional pain syndrome type 1 of left upper extremity Cervical radiculopathy Left hand weakness Left arm pain Procedures Nerve conduction test with EMG Xiomara Fowler, DO [address] [place] [address] Referral ID Status Reason Start Date Expiration Date V isits Requested Visits Authorized [id number] Pending Review 02/14/2023 08/13/2023 1 1 Referral ID Status Reason Start Date Expiration Date Visits Re quested Visits Authorized [id number] Closed 02/14/2023 08/13/2023 1 1 Additional Source Comments Source Comments (unrecognize d section and content) In the event this informatio n is protected by the Federal Confidentiality of Alcohol and Drug Abuse Patient Records regulations: The Federal rules restrict any use of the information to criminally investigate or prosecute any alcohol or drug abuse patient.[facility] Care Teams (unrecognized sec tion and content) Phlebotomy Supervisor Relationship Specialty Start Date End Date Noble Durbin MD [address] [facility], [facility] [place] [address] PCP - General 12/24/17 Phlebotomy Supervisor Relationship Specialty Start Date End Date Noble Durbin MD [facility], [facility] [place] [address] PCP - General 12/24/17 Phlebotomy Supervisor Relationship Specialty Start Date End Date Noble Durbin MD [address] [facility] [place] [address] PCP - General 12/24/17 Phlebotomy Supervisor Relationship Specialty Start Date End Date Noble Durbin MD [address] [facility] [place] [address] PCP - General 12/24/17 Phlebotomy Supervisor Relationship Specialty Start Date End Date Noble Durbin [facility] [place] [address] PCP - General 12/24/17 Phlebotomy Supervisor Relationship Specialty Start Date End Date Noble Durbin MD [address] [place] [id number] PCP - General 12/24/17 Phlebotomy Supervisor Relationship Specialty Start Date End Date Noble Durbin MD [address] [place] [address] [place] [address] PCP - General 12/24/17 Phlebotomy Supervisor Relationship Specialty Start Date End Date Noble Durbin MD [address] [place] [address] [place] [address] PCP - General 12/24/17 Phlebotomy Supervisor Relationship Specialty Start Date End Date Noble Durbin MD [address] [place] [address] [place] [address] PCP - General 12/24/17 Phlebotomy Supervisor Relationship Specialty Start Date End Date Noble Durbin MD [address] [facility] [place] [address] PCP - General 12/24/17 Phlebotomy Supervisor Relationship Specialty Start Date End Date Noble Durbin MD [address] [facility] [place] [address] PCP - General 12/24/17 Phlebotomy Supervisor Relationship Specialty Start Date End Date Noble Durbin MD [address] [facility] [place] [address] PCP General 12/24/17 Phlebotomy Supervisor Relationship Specialty Start Date End Date Noble Durbin MD [facility] [place] [address] PCP General 12/24/17 Phlebotomy Supervisor Relationship Specialty Start Date End Date Noble Durbin MD [facility] [place] [address] PCP General 12/24/17 INFORMATION SOURCE (unrecogn ized section and content) DATE CREATED AUTHOR AUTHOR'S ORGANIZ ATION 05/12/2021 [facility] DATE CREATED AUTHOR AUTHOR'S ORGANIZ ATION 03/31/2023 [facility] Reason for Visit (unrecogniz ed section and content) Reason Comments Med Refill Reason Comments Hypertension Hyperlipidemia Hypothyroidism Anxiety Depression Medication Check Health Maintenance Colon--referral, pastora mo--has been ordered needs to do, pneumo--declines, Shingles--declines, COVID 4--has not had, Tdap--declines Reason Onset Date Comments Med Refill 11/30/2022 Reason Onset Date Comments Med Refill 12/25/2022 Reason Onset Date Comments Med Refill 10/09/2022 Reason Comments Follow-up Specialty Diagnoses / Procedures Referred By Contac t Referred To Contact Neurology Diagnoses Cervical spinal stenosis Complex regional pain syndrome type 1 of left upper extremity Cervical radiculopathy Left hand weakness Left arm pain Procedures Nerve conduction test with EMG Xiomara Fowler, [address] [facility] [address] [place] [address] Referral ID Status Reason Start Date Expiration Date Visits Re quested Visits Authorized [id number] Closed 02/14/2023 08/13/2023 1 1 Reason Onset Date Comments Medication Problem 03/21/2023 Reason Onset Date Comments Mouth Injury 03/22/2023 Reason Comments Oral Pain FOR RECORDS PERTAINING TO PATIENTS WHO ARE OR HAVE BEEN ENROLLED IN A CHEMICAL DEPENDENCY/SUBSTANCEABUSE PROGRAM, SOME INFORMATION MAY BE OMITTED. This clinical summary was aggregated from multiple sources. Caution should be exercised in using it in the provision of clinical care. This summary normalizes information from multiple sources, and as a consequence, information in this document may materially change the coding, format and clinical context of patient data. In addition, data may be omitted in some cases. CLINICAL DECISIONS SHOULD BE BASED ON THE PRIMARY CLINICAL RECORDS. [employer] provides no warranty or guarantee of the accuracy or completeness of information in this document.
[2023-04-05 12:01] LABS: ALB/GLOB Ratio 1.2 RATIO (0.9-2.4); AST(SGOT) 18 U/L (15-37); Alanine Aminotransfer ALT/SGPT 23 U/L (13-56); Alkaline Phosphatase 59 U/L (45-117); Anion Gap 5 (5-15); BUN 16 mg/dL (7-18); BUN/Creat Ratio 15.1 RATIO (10-20); Calcium,Total 9.2 mg/dL (8.5-10.1); Chloride 107 mmol/L (98-107); Creatinine, Serum 1.06 mg/dL (0.55-1.02); EST Glomerular Filtration Rate 54 mL/min (>60); Est Glom Filt Rate - Afr Amer 66 mL/min (>60); Globulin 3.3 g/dL (2.2-4.2); Glucose 80 mg/dL (74-106); Potassium 4.1 mmol/L (3.5-5.1); Protein, Total 7.3 g/dL (6.4-8.2); Sodium Level 139 mmol/L (136-145); Thyroid Stim Hormone (TSH) 1.03 uIU/mL (0.358-3.74)
== END | disposition home or self-care (01) ==
LOC: LAB 10:46
PROVIDERS: PCP Family Medicine; Referring Provider Internal Medicine Cardiovascular Disease; Visit Provider Internal Medicine Cardiovascular Disease
DX: I10 Essential (primary) hypertension (principal); E78.5 Hyperlipidemia, unspecified; R07.9 Chest pain, unspecified; R00.2 Palpitations
CPT/HCPCS: 36415; 80053; 84443; 85025

== ENCOUNTER → 2023-04-06 | Outpatient (CLI) | payer MEDICARE, OTHER, SELFPAY ==
--- OUTSIDE RECORDS SUMMARY | 2023-04-06 08:51 | XMS RPT_ITS | CCD ---
Author Name Unknown Address [address] [place] [address] Organization [facility] Care Team Providers Care Sheet Heater Helper Name Role Phone Noble Durbin Primary Care Provider Shyam Roger Primary Care Provider [phone] Flory CANO, Noble Michaud Primary Care Provider [...] hours as needed for pain HYDROcodone-acetam inophen (Phoenix) 5-325 MG tablet Indications: Reflex sympathetic dystrophy [...] index (BMI) [Ratio] 32.22 kg/m2 Lisa Bridenthal UTILIZATION MANAGEMENT UM NURSE - [employer] BAND WRAPPER Work Phone: [facility] 03-29-2023 08:42-0500 Body temperature 98.01 [degF] Lisa Bridenthal UTILIZATION MANAGEMENT UM NURSE - [employer] BAND WRAPPER Work Phone: [employer] [facility] 03-29-2023 08:42-0500 Body weight 90.54 kg Lisa Bridenthal UTILIZATION MANAGEMENT UM NURSE - [employer] BAND WRAPPER Work Phone: [employer] 03-29-2023 08:42-0500 Diastolic blood pressure 63 mm[Hg] Lisa Bridenthal UTILIZATION MANAGEMENT UM NURSE - [employer] BAND WRAPPER Work Phone: [employer] [facility] 03-29-2023 08:42-0500 Heart rate 65 /min Lisa Bridenthal UTILIZATION MANAGEMENT UM NURSE - [employer] BAND WRAPPER Work Phone: [employer] [facility] 03-29-2023 08:42-0500 Respiratory rate 16 /min Lisa Bridenthal UTILIZATION MANAGEMENT UM NURSE - [employer] BAND WRAPPER Work Phone: [employer] 03-29-2023 08:42-0500 Systolic blood pressure 99 mm[Hg] Lisa Bridenthal UTILIZATION MANAGEMENT UM NURSE - [employer]AND WRAPPER Work Phone: [employer] [facility] 02-14-2023 13:22-0500 Body height 167.6 cm Xiomara Arizaran DO Work Phone: [employer] [facility] 02-14-2023 13:22-0500 Body mass index (BMI) [Ratio] 32.35 kg/m2 Xiomara Fowler DO Work Phone: [employer] 02-14-2023 13:22-0500 Body weight 90.9 kg Xiomara Fowler DO Work Phone: [employer] [facility] 02-14-2023 13:22-0500 Diastolic blood pressure 67 mm[Hg] Xiomara Fowler DO Work Phone: [employer] [facility] 02-14-2023 13:22-0500 Heart rate 69 /min Xiomara Fowler DO Work Phone: [employer] [facility] 02-14-2023 13:22-0500 Systolic blood pressure 103 mm[Hg] Xiomara Fowler DO Work Phone: [employer] [facility] 10-25-2022 10:42-0400 Body height 167.6 cm Curtis Cintron UTILIZATION MANAGEMENT UM NURSE - [employer] BAND WRAPPER Work Phone: [employer] 10-25-2022 10:42-0400 Body mass index (BMI) [Ratio] 32.6 kg/m2 Curtis Cintron UTILIZATION MANAGEMENT UM NURSE - [employer] BAND WRAPPER Work Phone: [employer] 10-25-2022 10:42-0400 Body weight 91.63 kg Curtis Cintron UTILIZATION MANAGEMENT UM NURSE - [employer] BAND WRAPPER Work Phone: [employer] [facility] 10-25-2022 10:42-0400 Diastolic blood pressure 70 mm[Hg] Curtis Cintron UTILIZATION MANAGEMENT UM NURSE - [employer] BAND WRAPPER Work Phone: [employer] 10-25-2022 10:42-0400 Heart rate 71 /min Curtis Cintron UTILIZATION MANAGEMENT UM NURSE - [employer] BAND WRAPPER Work Phone: [employer] 10-25-2022 10:42-0400 SaO2% (BldA) [Mass fraction] 96 % Curtis Cintron UTILIZATION MANAGEMENT UM NURSE - [employer] BAND WRAPPER Work Phone: [employer] 10-25-2022 10:42-0400 Systolic blood pressure 130 mm[Hg] Curtis Cintron UTILIZATION MANAGEMENT UM NURSE - [employer] BAND WRAPPER Work Phone: [facility] Encounters Encounter Date Encounter Type Care Provider Facility Start: 03-29-2023 End: 03-29-2023 [facility] Start: 03-29-2023 End: 03-29-2023 Office outpatient visit 15 minutes Lisa Randyal UTILIZATION MANAGEMENT UM NURSE - [employer] B[employer] WRAPPER Work Phone: [facility] Procedures Date Procedure Procedure Detail Performing Clinician Start: 03-13-2023 Nerve conduction jalen dies 11-12 studies Xiomara Barbosa Malcolm DO Work Phone: Start: 10-25-2022 Lipid 1996 panel - S rosa or Plasma Curtis Cintron UTILIZATION MANAGEMENT UM NURSE - [employer]AND WRAPPER Work Phone: Start: 10-25-2022 Thyrotropin [Units/v olume] in Serum or Plasma Curtis Cintron UTILIZATION MANAGEMENT UM NURSE - [employer] WRAPPER Work Phone: Start: 05-02-2022 Thyrotropin [Units/v olume] in Serum or Plasma Shaye Tony MD Work Phone: Start: 02-15-2021 End: 02-15-2021 Screening digital breast tomosynthesis bi Noble Durbin MD Work Phone: Start: 01-12-2021 Lipid 1996 panel - S rosa or Plasma Shaye Tony MD Work Phone: Start: 08-03-2020 EMG REPORT Xiomara herrera DO Work Phone: Start: 01-10-2012 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 Start: 01-12-2026 Lipid panel Lipid Panel [facility] Start: 10-26-2023 Thyroid stimulating hormone measurement TSH Level [facility] Start: 10-25-2023 DTaP/Tdap/Td Vaccine s (1 - Tdap) DTaP/Tdap/Td Vaccines (1 - Tdap) [facility] Immunizations Immunization Date Immunization Notes Care Provider Fa cili 02-01-2021 Pfizer SARS-CoV-2 Vaccination Shaye Tony MD Work Phone: [facility] 01-12-2021 pneumococcal polysaccharide vaccine, 23 valent Noble Durbin MD Work Phone: [facility] 06-19-2020 COVID-19, Pfizer, PF , 30mcg/0.3mL Xiomara Fowler DO Work Phone: [facility] Work Phone: 05-30-2020 COVID-19, Pfizer, PF , 30mcg/0.3mL Xiomara Fowler DO Work Phone: [facility] Work Phone: 12-13-2009 hepatitis A vaccine, adult dosage Shaye Tony MD Work Phone: [facility] 06-09-2009 hepatitis A vaccine, adult dosage Shaye Tony MD Work Phone: [facility] 06-09-2009 tetanus and diphther ia toxoids, adsorbed, preservative free, for adult use (2 Lf of tetanus toxoid and 2 Lf of diphtheria toxoid) Shaye Tony MD Work Phone: [facility] Payers Date Payer Category Payer Medicare [employer] UHC MEDICARE ADVANTAGE [id number] 2022-Present [address] [place] [address] Medicare HMO [id number] 2022 Medicare [id number] 2018 Medicare AETNA MEDICARE A ETNA MEDICARE-ADVANTAGE PPO [id number] 2018-Present [address] [place] [address] Medicare MEBRZLPJ [id number] 2010 Unknown NANCY SAENZ PREF ERRED EPO [id number] 2010-2017 EPO [id number] 2008 Unknown [id number] 2008 Unknown MOON MUSTAFA [id number] 2008-Present [address] [place] [address] Other Government [id number] 2004 Self-pay SELF PAY HSP/MED ICAL SELF PAY [id number] 2004-2015 SELF PAY Indemnity [id number] Social History Date Type Detail Facility Tobacco smoking stat [facility] Unknown if ever smoked [facility] Start: 1950 Sex Assigned At Not on file [facility] Start: 07-06-2020 Tobacco smoking stat [facility] Never smoker [facility] Start: 07-06-2020 Tobacco use and exposure Never used [facility] Start: 07-06-2020 End: 03-29-2023 Alcohol intake Current non-drinker of alcohol (finding) [employer] Work Phone: Start: 12-30-2019 End: 01-11-2021 History SDOH Alcohol Frequency 1 [employer] Work Phone: Start: 12-30-2019 History SDOH Physica l Activity DPW [employer] Work Phone: Start: 12-30-2019 End: 01-11-2021 History SDOH Financial [employer] Work Phone: Start: 12-30-2019 End: 01-11-2021 History SDOH Transport Med 2 [email or web address] Work Phone: Start: 05-07-2022 End: 10-25-2022 Exposure to SARS-CoV-2 (event) Not sure [facility] Start: 02-15-2021 End: 10-24-2022 Alcohol intake [facility] Start: 07-12-2022 End: 10-24-2022 Tobacco use panel [facility] Adolescent depressio n screening assessment 5 [facility] Goals Date Patient Goal Desired Activity /State [...] ear nose throat specialist at that time. [facility] 03-29-2023 Miscellaneous Notes Associated Problem(s): Irritation of oral cavity Uncertain etiology. Symptoms have been ongoing for several weeks now. Mild erythema, will treat with topical nystatin swish and spit. If no improvement or worsens, recommend seeing ear nose throat specialist at that time. documented in this encounter [facility] 03-29-2023 History of Present illness Narrative Patient [...] at that time. Orders: - nystatin (Mycostatin) [id number] UNIT/ML suspension; Take 5 mL (500,000 Units) [...] before bedtime. 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 [facility] 03-22-2023 Telephone encounter Note S: The patient is calling the [facility] about mouth swelling B: This has been [...] wants to be seen Protocols used: Mouth [id number] [facility] 03-22-2023 Miscellaneous Notes S: The patient is calling the [facility] about mouth swelling B: This has been [...] wants to be seen Protocols used: Mouth [id number] documented in this encounter [facility] 03-21-2023 Telephone encounter Note Reviewed chart. Refill appropriate. RX sent. [facility] 03-21-2023 Miscellaneous Notes Reviewed chart. Refill appropriate. RX sent. [facility] Ambien and Lyrica 06/29/22 CSA Phoenix 12/07/22 Prescription Request: Last medication check: 10-25-22 Last physical exam: 05-17-22 Next scheduled appointment: 05-02-23 Last date of refill on this medication norco and ambien 02/19/23, lyrica 01/26/23 Name of caller: Salma Posadas Contact phone number: [phone] Relationship to Patient: patient Provider: Dr. Durbin [...] their call: Yes documented in this encounter [facility] 03-21-2023 Telephone encounter Note CSA Ambien and Lyrica 06/29/22 CSA Phoenix 12/07/22 Prescription Request: Last medication check: 10-25-22 Last physical exam: 05-17-22 Next scheduled appointment: 05-02-23 Last date of refill on this medication norco and ambien 02/19/23, lyrica 01/26/23 [facility] 03-21-2023 Telephone encounter Note Name of caller: Salma Posadas Contact phone number: [phone] Relationship to Patient: patient Provider: Dr. Durbin Practice: [facility] Chief Complaint/Reason for Call: Pt is calling back regarding her Rx refills, see closed TE from 03.16.2023. Pt stated she is out of her Rx. Please advise. Thank you. Best time of day caller can be reached: Any Patient advised that office/PCP has 24-48 business hours to return their call: Yes [facility] 03-13-2023 Note [facility] Neurology Lab EMG/NCS report: Patient: Salma Posadas [...] for this study were taken from the [facility] reference values which were created in 2019. This dictation was done by using the [employer] dictation system. It has been proofread but still may contain unrecognized voice recognition errors. [facility] 03-13-2023 Procedure note Associated Ord er(s): NERVE CONDUCTION TEST WITH EMG [facility] Neurology Lab EMG/NCS report: Patient: Salma Posadas [...] This dictation was done by using the [employer] dictation system. It has been proofread but still may contain unrecognized voice recognition errors. [employer] Work Phone: 03-13-2023 Procedure note Associated Ord er(s): NERVE CONDUCTION TEST WITH EMG [facility] EMG/NCS report: Patient: Salma Posadas [...] This dictation was done by using the [employer] dictation system. It has been proofread but still may contain unrecognized voice recognition errors. documented in this encounter [facility] 02-22-2023 Miscellaneous Notes Reviewed chart. Refill appropriate. RX sent. Prescription Request: Last medication check: 10-25-22 Last physical exam: 05-17-22 Next scheduled appointment: 05-02-23 Last date of refill on this medication 11/23/22 documented in this encounter [facility] 02-22-2023 Telephone encounter Note Reviewed chart. Refill appropriate. RX sent. [facility] 02-22-2023 Telephone encounter Note Prescription Request: Last medication check: 10-25-22 Last physical exam: 05-17-22 Next scheduled appointment: 05-02-23 Last date of refill on this medication 11/23/22 [facility] 02-14-2023 History of Present illness Narrative [facility] NOTE Chief complaint: Weakness and Numbness History of present illness: Salma Posadas is a 72 y.o. right handed female who presents in followup with numbness and weakness. She has a history of RSD. In 2004 she went to [facility] due to neck pain between her shoulder [...] Dr. Durbin. She saw a Neurologist at [facility]. She is on Lyrica [address] Durbin. She saw Dr. Flores and Dr. Mitchell at [facility] neurology at one time. In 2007 she [...] became nauseated and dizzy. She called the [facility] air conditioning service technician nurse. She suggested going to the emergency [...] Onset Cancer Father pt is unaware Other ([id number]) Mother Social History Socioeconomic History Marital status: [...] morning and 1 drop before bedtime. HYDROcodone-acetaminophen (Phoenix) 5-325 MG tablet Take 1 tablet by [...] Jaw jerk Lopez Babinski Down Down Coordination: Ftmbtv-th-pbil intact bilaterally. Jwen-wx-[id number] intact bilaterally. Rapid alternating movements are normal. [...] This dictation was done by using the [employer] dictation system. It has been proofread but still may contain unrecognized voice recognition errors. documented in this encounter [facility] 01-16-2023 Telephone encounter Note Prescription Request: Last medication check: 10-25-22 Last physical exam: 05-17-22 Next scheduled appointment: 05-02-23 Last date of refill on this medication 07/31/22 [facility] 01-16-2023 Miscellaneous Notes Prescription Request: Last medication check: 10-25-22 Last physical exam: 05-17-22 Next scheduled appointment: 05-02-23 Last date of refill on this medication 07/31/22 documented in this encounter [facility] 01-01-2023 Telephone encounter Note Prescription Request: Last medication check: 10-25-22 Last physical exam: 05-17-22 Next scheduled appointment: 05-02-23 Last date of refill on this medication 06-26-22 [facility] 01-01-2023 Miscellaneous Notes Prescription Request: Last medication check: 10-25-22 Last physical exam: 05-17-22 Next scheduled appointment: 05-02-23 Last date of refill on this medication 06-26-22 documented in this encounter [facility] 12-25-2022 Note Reviewed chart. Refi ll appropriate. Rx sent. Oarrs reviewed and consistent with treatment plan. [facility] 12-25-2022 Telephone encounter Note Reviewed chart. Refill appropriate. Rx sent. Oarrs reviewed and consistent with treatment plan. [facility] 12-25-2022 Miscellaneous Notes Reviewed chart. Refill appropriate. Rx sent. Oarrs reviewed and consistent with treatment plan. CSA Phoenix 12/07/22 CSA Lyrica 06/29/22 Ordering provider: Date of last office visit: 10/25/2022 Date of next office visit: 05/02/2023 Updated/Validated preferred pharmacy: Yes Patient instructed to contact the pharmacy prior to picking up the medication: no (1) Medication name: Pt is out of this medication HYDROcodone-acetaminophen (Phoenix) 5-325 MG tablet Medication dosage: Monthly quantity [...] medication tab): 12/01/2022 documented in this encounter [facility] 12-25-2022 Telephone encounter Note CSA Phoenix 12/07/22 CSA Lyrica 06/29/22 [facility] 12-25-2022 Telephone encounter Note Ordering provider: Date of last office visit: 10/25/2022 Date of next office visit: 05/02/2023 Updated/Validated preferred pharmacy: Yes Patient instructed to contact the pharmacy prior to picking up the medication: no (1) Medication name: Pt is out of this medication HYDROcodone-acetaminophen (Phoenix) 5-325 MG tablet Medication dosage: Monthly quantity [...] of last refill (see medication tab): 12/01/2022 [employer] [facility] 12-07-2022 Telephone encounter Note Pt stopped in office and signed csma [employer] [facility] 12-07-2022 Miscellaneous Notes Pt stopped in office and signed csma Left detailed voicemail to stop in office or no refills can be sent in. Sent [employer] message advising her to stop in office [...] medication tab): 10/25/22 (2) Medication name: HYDROcodone-acetaminophen (Phoenix) 5-325 MG tablet Medication dosage: 325 mg [...] medication tab): 11/03/22 documented in this encounter [facility] 12-05-2022 Telephone encounter Note Left detailed voicemail to stop in office or no refills can be sent in. [facility] 12-05-2022 Miscellaneous Notes Left detailed voicemail to stop in office or no refills can be sent in. Sent [employer] message advising her to stop in office [...] medication tab): 10/25/22 (2) Medication name: HYDROcodone-acetaminophen (Phoenix) 5-325 MG tablet Medication dosage: 325 mg [...] medication tab): 11/03/22 documented in this encounter [facility] 12-01-2022 Telephone encounter Note Sent mychart message advising her to stop in office carlene to sign. [facility] 12-01-2022 Telephone encounter Note Rx sent, OARRS report done, no inconsistencies, it looks like she needs to sign a new CS agreement. [facility] 11-30-2022 Telephone encounter Note Patient was wondering [...] medication tab): 10/25/22 (2) Medication name: HYDROcodone-acetaminophen (Phoenix) 5-325 MG tablet Medication dosage: 325 mg [...] of last refill (see medication tab): 11/03/22 [facility] 11-23-2022 Telephone encounter Note Reviewed chart. Refill appropriate. RX sent. [facility] 11-23-2022 Miscellaneous Notes Reviewed chart. Refill appropriate. RX sent. Prescription Request: Last medication check: 10/25/22 Last physical exam: 05/17/22 Next scheduled appointment: 05/02/23 Last date of refill on this medication 08/28/22 documented in this encounter [facility] 11-23-2022 Telephone encounter Note Prescription Request: Last medication check: 10/25/22 Last physical exam: 05/17/22 Next scheduled appointment: 05/02/23 Last date of refill on this medication 08/28/22 [facility] 10-25-2022 History of Present illness Narrative Images [...] results.. 12. 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 Was prescribed Hydroxychloroquine and has stopped taking this because she did not like how she felt on it. Has followed up with neurologists and other specialist for her chronic issues and does not feel she has made much progress. Will take Phoenix and Lyrica as needed for pain and this is prescribed by Dr. Durbin. Hyperlipidemia: Takes Rosuvastatin daily as prescribed. From what I can see she has not had her cholesterol levels checked since 2020, so we will check this today while she is here. Health Maintenance: Has seen a machine deburrer for a skin cancer screening check- Dr. [...] 10/25/2022 11:19 AM documented in this encounter [facility] 10-09-2022 Telephone encounter Note Rx sent. OARRS report reviewed with no discrepancies. CSA signed in June 2022. Follow up as scheduled. [facility] 10-09-2022 Miscellaneous Notes Rx sent. OARRS report [...] the medication: Yes documented in this encounter [facility] 10-09-2022 Telephone encounter Note Medication name: zolpidem [...] prior to picking up the medication: Yes [facility] 08-28-2022 Telephone encounter Note Rx sent. Follow up as scheduled. [facility] 08-28-2022 Miscellaneous Notes Rx sent. Follow up as scheduled. Prescription Request: Last medication check: 02/15/22 Last physical exam: 05/17/22 Next scheduled appointment: 10/25/22 Last date of refill on this medication 03/10/22 90 days 1 refill documented in this encounter [facility] 08-28-2022 Telephone encounter Note Prescription Request: Last medication check: 02/15/22 Last physical exam: 05/17/22 Next scheduled appointment: 10/25/22 Last date of refill on this medication 03/10/22 90 days 1 refill [facility] 07-25-2022 Telephone encounter Note Prescription Request: Last medication check: 07/12/22 Last physical exam: 05/17/22 Next scheduled appointment: 10/25/22 Last date of refill on this medication 05/04/22 30 days 2 refills [facility] 07-25-2022 Miscellaneous Notes Prescription Request: Last medication check: 07/12/22 Last physical exam: 05/17/22 Next scheduled appointment: 10/25/22 Last date of refill on this medication 05/04/22 30 days 2 refills documented in this encounter [facility] 06-26-2022 Telephone encounter Note Scheduled for 10/25/22. [facility] 06-26-2022 Miscellaneous Notes Scheduled for 10/25/22. Rx sent. Due for follow up in October for medication maintenance- please schedule. Prescription Request: Last medication check: 05/01/22 Last physical exam: 05/17/22 Next scheduled appointment: none CSA on file (date): na Last urine drug screen: na Last date of refill on this medication 12/26/21 90 day 1 refill documented in this encounter [facility] 06-26-2022 Telephone encounter Note Rx sent. Due for follow up in October for medication maintenance- please schedule. T [facility] 06-26-2022 Telephone encounter Note Prescription Request: Last medication check: 05/01/22 Last physical exam: 05/17/22 Next scheduled appointment: none CSA on file (date): na Last urine drug screen: na Last date of refill on this medication 12/26/21 90 day 1 refill T [facility] 05-22-2022 Telephone encounter Note Name of caller: Salma Contact phone number: [phone] Relationship to Patient: pt Provider: Practice: Plastics [...] business hours to return their call: No [facility] 05-22-2022 Miscellaneous Notes Name of caller: Salma Contact phone number: [phone] Relationship to Patient: pt Provider: Practice: Plastics [...] their call: No documented in this encounter [facility] 05-17-2022 Note Will provide additio nal pain medication for post procedure x 3 days (dermatological) [facility] [facility] 05[facility]2022 Note OV notes, labs, refe rral and insurance card faxed. Patient notified. [facility] 05-04-2022 Note Please call and let her know I placed a referral to : Dr. Sherry Macias [facility] [address] [place] [address] [facility] 06-22-2020 Note HNO ID: [id number] Author: Ward Perze Service: ? Author Type: Physician Type: Progress Notes Filed: 06/23/2020 4:08 PM Note Text: NEUROLOGY CONSULT - VIRTUAL VISIT Done as part of COVID pandemic. Pt at home. in . Date of Evaluation: June 22, 2020 Referring physician: Dr. 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 She underwent negative cardiac eval at [facility] and was in hospital for 5 [...] from left leg, ? 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 Social History Tobacco Use - [...] your satisfaction with (more content not included)... [facility] documented in this encounter [facility] Work Phone: [...] myalgia and myositis documented in this encounter [facility] Diagnosis Primary insomnia Persistent disorder of initiating or maintaining sleep documented in this encounter [facility] Diagnosis Cervical radiculopathy- Primary Brachial neuritis or radiculitis nos Cervical spinal stenosis Spinal stenosis in cervical region Complex regional pain syndrome type 1 of left upper extremity Left hand weakness Muscle weakness (generalized) Left arm pain Pain in soft tissues of limb documented in this encounter [facility] Diagnosis Cervical spinal stenosis Spinal stenosis in cervical region Complex regional pain syndrome type 1 of left upper extremity Cervical radiculopathy Brachial neuritis or radiculitis nos Left hand weakness Muscle weakness (generalized) Left arm pain Pain in soft tissues of limb documented in this encounter [facility]* Diagnosis Reflex sympathetic dystrophy Unspecified reflex sympathetic dystrophy Primary insomnia Persistent disorder of initiating or maintaining sleep Fibromyalgia Unspecified myalgia and myositis documented in this encounter [facility]* Diagnosis Irritation of oral cavity- Primary [facility] Consultation (Routine) - Pending Review Specialty Diagnoses / Procedures Referred By Joe eason Referred To Contact General Surgery Diagnoses Screening for colon cancer Procedures [place] OFFICE/OUTPATIENT [facility] 60-74 MINUTES Curtis Cintorn APRN - CNP [address] 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 ACP-Advance Directive ACP-Power of County Agent Summary Purpose Family History No Family History [...] Fowler, DO [address] [place] [address] Referral ID Status Reason Start Date Expiration Date V isits Requested Visits Authorized [id number] Pending Review 02/14/2023 02/14/2024 1 1 Specialty Diagnoses / Procedures Referred By Contac t Referred To Contact Neurology Diagnoses Cervical spinal stenosis Complex regional pain syndrome type 1 of left upper extremity Cervical radiculopathy Left hand weakness Left arm pain Procedures Nerve conduction test with EMG Xiomara Fowler, DO [address] [place] [address] Referral ID Status Reason Start Date Expiration Date V isits Requested Visits Authorized [id number] Pending Review 02/14/2023 08/13/2023 1 1 Referral ID Status Reason Start Date Expiration Date Visits Re quested Visits Authorized [id number] Closed 02/14/2023 08/13/2023 1 1 Additional Source Comments Source Comments (unrecognize d section and content) In the event this informatio n is protected by the Federal Confidentiality of Alcohol and Drug Abuse Patient Records regulations: The Federal rules restrict any use of the information to criminally investigate or prosecute any alcohol or drug abuse patient.[facility] Care Teams (unrecognized sec tion and content) Sheet Heater Helper Relationship Specialty Start Date End Date Noble Durbin MD [address] 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 Heater Helper Relationship Specialty Start Date End Date Noble Durbin MD [address] 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 Heater Helper Relationship Specialty Start Date End Date Noble Durbin MD [facility] [place] [address] PCP - General 12/24/17 Sheet Heater Helper Relationship Specialty Start Date End Date Noble Durbin MD [address] [place] [address] PCP - General 12/24/17 Sheet Heater Helper Relationship Specialty Start Date End Date Noble Durbin MD [address] [place] [address] [place] [address] PCP - General 12/24/17 Sheet Heater Helper Relationship Specialty Start Date End Date Noble Durbin MD [address] [place] [address] [place] [address] PCP - General 12/24/17 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 Heater Helper Relationship Specialty Start Date End Date Noble Durbin MD [address] [place] [address] [place] [address] PCP - General 12/24/17 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 Heater Helper Relationship Specialty Start Date End Date Noble Durbin MD [address] [facility] [place] [address] PCP - General 12/24/17 Sheet Heater Helper Relationship Specialty Start Date End Date Noble Durbin MD [address] [facility] [place] [address] PCP - General 12/24/17 Sheet Heater Helper Relationship Specialty Start Date End Date Noble Durbin MD [address] [facility] [place] [address] PCP General 12/24/17 Sheet Heater Helper Relationship Specialty Start Date End Date Noble Durbin MD [facility] [place] [address] PCP General 12/24/17 Sheet Heater Helper Relationship Specialty Start Date End Date Noble Durbin MD [facility] [place] [address] PCP General 12/24/17 INFORMATION SOURCE (unrecogn ized section and content) DATE CREATED AUTHOR AUTHOR'S ORGANIZ ATION 05/12/2021 [facility] DATE CREATED AUTHOR AUTHOR'S ORGANIZ ATION 03/31/2023 [facility] Reason for Visit (unrecogniz ed section and [...] conduction test with EMG Xiomara Fowler, [address] [facility] [address] [place] [address] Referral ID Status Reason Start Date Expiration Date Visits Re quested Visits Authorized [id number] Closed 02/14/2023 08/13/2023 1 1 Reason Onset [...] BE BASED ON THE PRIMARY CLINICAL RECORDS. [employer] provides no warranty or guarantee of the accuracy or completeness of information in this document.
[2023-04-06 10:00] LABS: Absolute Lymphocyte Count 2.45 X10^3/uL (0.83-4.51); Absolute Neutrophil Count 2.7 X10^3/uL (2.0-7.7); Basophil# 0.07 X10^3/uL; Basophil% 1.2 % (0-1); Eosinophil# 0.24 X10^3/uL; Eosinophils% 4.1 % (0-5); Hematocrit 43.2 % (37-47); Lymphocyte # 2.45 X10^3/ul (0.83-4.51); Mean Corp Hgb Conc 32.4 g/dL (32-36); Mean Corpuscular Hgb 29.4 pg (27.0-32.0); Mean Corpuscular Volume 90.8 fL (81-99); Mean Platelet Vol. 11.8 fl (6.2-12.0); Monocyte# 0.36 X10^3/uL; Monocyte% 6.2 % (0-10); NRBC Flagged by Analyzer 0 % (0-5); Neutrophil % 46.3 % (47-70); Platelet Count 191 K/mm3 (150-450); RBC Distribution Width CV 13.8 % (11.6-14.6); RBC Distribution Width SD 46.1 fl (35.1-43.9); Red Blood Count 4.76 M/mm3 (4.2-5.4); White Blood Count 5.8 K/mm3 (4.4-11.0)
[2023-04-06 10:54] LABS: ALB/GLOB Ratio 1.2 RATIO (0.9-2.4); AST(SGOT) 18 U/L (15-37); Alanine Aminotransfer ALT/SGPT 24 U/L (13-56); Albumin, Serum 4.1 g/dL (3.2-5.0); Alkaline Phosphatase 62 U/L (45-117); Anion Gap 7 (5-15); BUN 20 mg/dL (7-18); BUN/Creat Ratio 18.9 RATIO (10-20); Calcium,Total 9.7 mg/dL (8.5-10.1); Chloride 103 mmol/L (98-107); Creatinine, Serum 1.06 mg/dL (0.55-1.02); EST Glomerular Filtration Rate 54 mL/min (>60); Est Glom Filt Rate - Afr Amer 66 mL/min (>60); Globulin 3.3 g/dL (2.2-4.2); Glucose 87 mg/dL (74-106); Potassium 3.9 mmol/L (3.5-5.1); Protein, Total 7.4 g/dL (6.4-8.2); Sodium Level 137 mmol/L (136-145)
== END | disposition home or self-care (01) ==
LOC: MTLAB 08:17
PROVIDERS: PCP Family Medicine; Referring Provider Internal Medicine Rheumatology; Visit Provider Internal Medicine Rheumatology
DX: M06.4 Inflammatory polyarthropathy (principal); M79.7 Fibromyalgia; R76.8 Other specified abnormal immunological findings in serum; Z79.899 Other long term (current) drug therapy
CPT/HCPCS: 36415; 80053; 85025

== ENCOUNTER → 2023-05-01 | Outpatient (CLI) | payer MEDICARE, OTHER, SELFPAY ==
--- NOTE | 2023-05-01 07:49 | ECHOD_ITS ---
Reason For Study: PALPITATIONS Procedure This was a 2D Doppler, Color Flow transthoracic echocardiogram. Exam performed in department. Left Ventricle Normal size and thickness. The left ventricular ejection fraction is 60 %. Normal diastology for age. Mild posterior hypokinesis. Right Ventricle Moderately dilated right ventricle. A moderator band is seen in the right ventricle. Mild global right ventricular systolic dysfunction. Atria Normal left atrium. The right atrium is mildly enlarged. Mitral Valve Trivial mitral valve insufficiency. Tricuspid Valve Trivial tricuspid valve insufficiency. Normal pulmonary artery pressure. Aortic Valve Trisinus/trileaflet aortic valve. Trivial aortic valve insufficiency. Pulmonic Valve The pulmonic valve is not well visualized. Great Vessels Normal sized aortic root. Pericardium/Pleural No pericardial effusion. MMode/2D Measurements & Calculations LVIDd: 4.8 cm IVSd: 1.0 cm Ao root diam: 3.0 cm LVIDs: 3.1 cm LVPWd: 1.1 cm RVDd: 3.6 cm FS: 35.7 % LAV(MOD-bp): 41.9 ml LVAd ap4: 23.7 cm2 LVAd ap2: 23.8 cm2 LAV(MOD-bp) Indexed: 21.8 ml/m2 LVLd ap4: 6.6 cm LVLd ap2: 7.5 cm LAV(MOD-sp2): 35.3 ml EDV(MOD-sp4): 70.3 ml EDV(MOD-sp2): 62.7 ml LAV(MOD-sp4): 42.8 ml EDV(sp4-el): 72.5 ml EDV(sp2-el): 63.8 ml LVAs ap4: 13.8 cm2 LVAs ap2: 13.0 cm2 LVLs ap4: 5.7 cm LVLs ap2: 6.0 cm ESV(MOD-sp4): 28.1 ml ESV(MOD-sp2): 24.6 ml ESV(sp4-el): 28.5 ml ESV(sp2-el): 23.8 ml EF(MOD-sp4): 60.0 % EF(MOD-sp2): 60.8 % EF(sp4-el): 60.8 % SV(MOD-sp4): 42.2 ml SV(MOD-sp2): 38.1 ml SV(sp4-el): 44.1 ml LA dimension(2D): 3.9 cm LA A4 area: 14.8 cm2 RA A4 area: 11.4 cm2 TAPSE: 1.9 cm Time Measurements MV dec time: 0.21 sec Doppler Measurements & Calculations MV E max von: 56.6 cm/sec Lat Peak E' Von: 5.7 cm/sec Med Peak E' Von: 6.6 cm/sec MV A max von: 69.6 cm/sec E/E' lat: 9.9 E/E' med: 8.6 MV E/A: 0.81 Ao V2 max: 113.1 cm/sec LV V1 max: 75.9 cm/sec PA V2 max: 78.4 cm/sec Ao max P.1 mmHg LV V1 max P.3 mmHg PA V2 mean: 52.3 cm/sec Ao V2 mean: 78.6 cm/sec LV V1 mean P.3 mmHg Ao mean P.9 mmHg LV V1 mean: 52.7 cm/sec Ao V2 VTI: 28.7 cm LV V1 VTI: 18.9 cm AV (velocity ratio): 0.66 TR max von: 231.1 cm/sec TR max P.4 mmHg ECHO/Echo Complete Interpretation Summary The left ventricular ejection fraction is 60 %. Mild posterior hypokinesis Moderately dilated right ventricle. Mild global right ventricular systolic dysfunction. The right atrium is mildly enlarged. Ordering Physician: Irina Victoria Referring Physician: Nicholas Durbin Performed By: Freda Zhao, ASIM, RVT
--- OUTSIDE RECORDS SUMMARY | 2023-05-01 08:10 | XMS RPT_ITS | CCD ---
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 Name Role Phone Noble Durbin Primary Care Provider [phone] Shyam Roger Primary Care Provider Flory CANO, [...] hours as needed for pain HYDROcodone-acetam inophen ([place]) 5-325 MG tablet Indications: Reflex sympathetic dystrophy [...] index (BMI) [Ratio] 32.22 kg/m2 Lisa Bridenthal COOK HELPER FRUIT - SNOWBOARDING INSTRUCTOR Work Phone: [facility] 03-29-2023 08:42-0500 Body temperature 98.01 [degF] Lisa Bridenthal COOK HELPER FRUIT - SNOWBOARDING INSTRUCTOR Work Phone: [email or web address] [facility] 03-29-2023 08:42-0500 Body weight 90.54 kg Lisa Bridenthal COOK HELPER FRUIT - SNOWBOARDING INSTRUCTOR Work Phone: [employer] 03-29-2023 08:42-0500 Diastolic blood pressure 63 mm[Hg] Lisa Bridenthal COOK HELPER FRUIT - SNOWBOARDING INSTRUCTOR Work Phone: [email or web address] [facility] 03-29-2023 08:42-0500 Heart rate 65 /min Lisa Bridenthal COOK HELPER FRUIT - SNOWBOARDING INSTRUCTOR Work Phone: [email or web address] [facility] 03-29-2023 08:42-0500 Respiratory rate 16 /min Lisa Bridenthal COOK HELPER FRUIT - SNOWBOARDING INSTRUCTOR Work Phone: [employer] 03-29-2023 08:42-0500 Systolic blood pressure 99 mm[Hg] Lisa Bridenthal COOK HELPER FRUIT - SNOWBOARDING INSTRUCTOR Work Phone: [email or web address] [facility] 02-14-2023 13:22-0500 Body height 167.6 cm Xiomara Arizaran DO Work Phone: [email or web address] [facility] 02-14-2023 13:22-0500 Body mass index (BMI) [Ratio] 32.35 kg/m2 Xiomara Fowler DO Work Phone: [employer] 02-14-2023 13:22-0500 Body weight 90.9 kg Xiomara Fowler DO Work Phone: [email or web address] [facility] 02-14-2023 13:22-0500 Diastolic blood pressure 67 mm[Hg] Xiomara Fowler DO Work Phone: [email or web address] [facility] 02-14-2023 13:22-0500 Heart rate 69 /min Xiomara Fowler DO Work Phone: [email or web address] [facility] 02-14-2023 13:22-0500 Systolic blood pressure 103 mm[Hg] Xiomara Fowler DO Work Phone: [email or web address] [facility] 10-25-2022 10:42-0400 Body height 167.6 cm Curtis Cintron COOK HELPER FRUIT - SNOWBOARDING INSTRUCTOR Work Phone: [employer] 10-25-2022 10:42-0400 Body mass index (BMI) [Ratio] 32.6 kg/m2 Curtis Cintron COOK HELPER FRUIT - SNOWBOARDING INSTRUCTOR Work Phone: [employer] 10-25-2022 10:42-0400 Body weight 91.63 kg Curtis Cintron COOK HELPER FRUIT - SNOWBOARDING INSTRUCTOR Work Phone: [email or web address] [facility] 10-25-2022 10:42-0400 Diastolic blood pressure 70 mm[Hg] Curtis Cintron COOK HELPER FRUIT - SNOWBOARDING INSTRUCTOR Work Phone: [employer] 10-25-2022 10:42-0400 Heart rate 71 /min Curtis Cintron COOK HELPER FRUIT - SNOWBOARDING INSTRUCTOR Work Phone: [employer] 10-25-2022 10:42-0400 SaO2% (BldA) [Mass fraction] 96 % Curtis Cintron COOK HELPER FRUIT - SNOWBOARDING INSTRUCTOR Work Phone: [employer] 10-25-2022 10:42-0400 Systolic blood pressure 130 mm[Hg] Curtis Cintron COOK HELPER FRUIT - SNOWBOARDING INSTRUCTOR Work Phone: [facility] Encounters Encounter Date Encounter Type Care Provider Facility Start: 03-29-2023 End: 03-29-2023 ambulatory [facility] Start: 03-29-2023 End: 03-29-2023 Office outpatient visit 15 minutes Lisa Randyal COOK HELPER FRUIT - SNOWBOARDING INSTRUCTOR Work Phone: [facility] Procedures Date Procedure Procedure Detail Performing Clinician Start: 03-13-2023 Nerve conduction jalen dies 11-12 studies Xiomara Barbosa Malcolm DO Work Phone: Start: 10-25-2022 Lipid 1996 panel - S rosa or Plasma Curtis Cintron COOK HELPER FRUIT - SNOWBOARDING INSTRUCTOR Work Phone: Start: 10-25-2022 Thyrotropin [Units/v olume] in Serum or Plasma Curtis Cintron COOK HELPER FRUIT - SNOWBOARDING INSTRUCTOR Work Phone: Start: 05-02-2022 Thyrotropin [Units/v olume] in Serum or Plasma Shaye Tony MD Work Phone: Start: 02-15-2021 End: 02-15-2021 Screening digital breast tomosynthesis bi Noble Durbin MD Work Phone: Start: 01-12-2021 Lipid 1996 panel - S rosa or Plasma Shaye Tony MD Work Phone: Start: 08-03-2020 EMG REPORT Xiomara herrera DO Work Phone: Start: 01-10-2012 CONVERTED CYTOLOGY BODY WIRER Shyam Roger Work Phone: Plan of Treatment Date Care Activity Detail Author Start: 10-26-2027 Lipid panel Lipid Panel [facility] Start: 01-12-2026 Lipid panel Lipid Panel [facility] Start: 10-26-2023 Thyroid stimulating hormone measurement TSH Level [facility] Start: 10-25-2023 DTaP/Tdap/Td Vaccine s (1 - Tdap) DTaP/Tdap/Td Vaccines (1 - Tdap) [facility] Immunizations Immunization Date Immunization Notes Care Provider Fa cili 02-01-2021 Pfizer SARS-CoV-2 Vaccination Shaye Tony MD Work Phone: [facility] 01-12-2021 pneumococcal polysaccharide vaccine, 23 valent Noble Durbin MD Work Phone: [facility] 06-19-2020 COVID-19, Pfizer, PF , 30mcg/0.3mL Xiomara Fowler DO Work Phone: [facility] Work Phone: 05-30-2020 COVID-19, Pfizer, PF , 30mcg/0.3mL Xiomara Fowler DO Work Phone: [facility] Work Phone: 12-13-2009 hepatitis A vaccine, adult dosage Shaye Tony MD Work Phone: [facility] 06-09-2009 hepatitis A vaccine, adult dosage Shaye Tony MD Work Phone: [facility] 06-09-2009 tetanus and diphther ia toxoids, adsorbed, preservative free, for adult use (2 Lf of tetanus toxoid and 2 Lf of diphtheria toxoid) Shaye Tony MD Work Phone: [facility] Payers Date Payer Category Payer Medicare [employer] MEDICARE UHC MEDICARE ADVANTAGE [id number] 2022-Present [address] [place] [address] Medicare HMO [id number] 2022 Medicare [id number] 2018 Medicare AETNA MEDICARE A ETNA MEDICARE-ADVANTAGE PPO [id number] 2018-Present [address] [place] [address] Medicare MEBRZLPJ [id number] 2010 Unknown NANCY SAENZ PREF ERRED EPO [id number] 2010-2017 EPO [id number] 2008 Unknown [id number] 2008 Unknown MOON MUSTAFA [id number] 2008-Present [address] [place] [address] Other Government [id number] 2004 Self-pay SELF PAY HSP/MED ICAL SELF PAY [id number] 2004-2015 SELF PAY Indemnity [id number] Social History Date Type Detail Facility Tobacco smoking stat [facility] Unknown if ever smoked [facility] Start: 1950 Sex Assigned At Not on file [facility] Start: 07-06-2020 Tobacco smoking stat [facility] Never smoker [facility] Start: 07-06-2020 Tobacco use and exposure Never used [facility] Start: 07-06-2020 End: 03-29-2023 Alcohol intake Current non-drinker of alcohol (finding) [employer] Work Phone: Start: 12-30-2019 End: 01-11-2021 History SDOH Alcohol Frequency 1 [employer] Work Phone: Start: 12-30-2019 History SDOH Physica l Activity DPW 3 [employer] Work Phone: Start: 12-30-2019 End: 01-11-2021 History SDOH Financial 5 [employer] Work Phone: Start: 12-30-2019 End: 01-11-2021 History SDOH [facility] Med [facility]: Start: 05-07-2022 End: 10-25-2022 Exposure to SARS-CoV-2 (event) Not sure [facility] Start: 02-15-2021 End: 10-24-2022 Alcohol intake [facility] Start: 07-12-2022 End: 10-24-2022 Tobacco use panel [facility] Adolescent depressio n screening assessment 5 [facility] Goals Date Patient Goal Desired Activity /State [...] ear nose throat specialist at that time. [facility] 03-29-2023 Miscellaneous Notes Associated Problem(s): Irritation of oral cavity Uncertain etiology. Symptoms have been ongoing for several weeks now. Mild erythema, will treat with topical nystatin swish and spit. If no improvement or worsens, recommend seeing ear nose throat specialist at that time. documented in this encounter [facility] 03-29-2023 History of Present illness Narrative Patient [...] at that time. Orders: - nystatin (Mycostatin) [id number] UNIT/ML suspension; Take 5 mL (500,000 Units) [...] before bedtime. 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 [facility] 03-22-2023 Telephone encounter Note S: The patient is calling the [facility] about mouth swelling B: This has [...] wants to be seen Protocols used: Mouth [id number] [facility] 03-22-2023 Miscellaneous Notes S: The patient is calling the [facility] about mouth swelling B: This has [...] wants to be seen Protocols used: Mouth [id number] documented in this encounter [facility] 03-21-2023 Telephone encounter Note Reviewed chart. Refill appropriate. RX sent. [facility] 03-21-2023 Miscellaneous Notes Reviewed chart. Refill appropriate. RX sent. [facility] Ambien and Lyrica 06/29/22 CSA [place] 12/07/22 Prescription Request: Last medication check: 10-25-22 Last physical exam: 05-17-22 Next scheduled appointment: 05-02-23 Last date of refill on this medication norco and ambien 02/19/23, lyrica 01/26/23 Name of caller: Salma Posadas Contact phone number: [phone] Relationship to Patient: patient Provider: Dr. Durbin [...] their call: Yes documented in this encounter [facility] 03-21-2023 Telephone encounter Note CSA Ambien and Lyrica 06/29/22 CSA [place] 12/07/22 Prescription Request: Last medication check: 10-25-22 Last physical exam: 05-17-22 Next scheduled appointment: 05-02-23 Last date of refill on this medication norco and ambien 02/19/23, lyrica 01/26/23 [facility] 03-21-2023 Telephone encounter Note Name of caller: Salma Posadas Contact phone number: [phone] Relationship to Patient: patient Provider: Dr. Durbin Practice: [facility] Chief Complaint/Reason for Call: Pt is calling back regarding her Rx refills, see closed TE from 03.16.2023. Pt stated she is out of her Rx. Please advise. Thank you. Best time of day caller can be reached: Any Patient advised that office/PCP has 24-48 business hours to return their call: Yes [facility] 03-13-2023 Note [facility] EMG/NCS report: Patient: Salma [...] for this study were taken from the [facility] reference values which were created in 2019. This dictation was done by using the e-SENS dictation system. It has been proofread but still may contain unrecognized voice recognition errors. [facility]-13-2023 Procedure note Associated Ord er(s): NERVE CONDUCTION TEST WITH EMG [facility] EMG/NCS report: Patient: Salma [...] for this study were taken from the [facility] reference values which were created in 2019. This dictation was done by using the e-SENS dictation system. It has been proofread but still may contain unrecognized voice recognition errors. [employer] Work Phone: 03-13-2023 Procedure note Associated Ord er(s): NERVE CONDUCTION TEST WITH EMG [facility] EMG/NCS report: Patient: Salma Posadas [...] This dictation was done by using the e-SENS dictation system. It has been proofread but still may contain unrecognized voice recognition errors. documented in this encounter [facility] 02-22-2023 Miscellaneous Notes Reviewed chart. Refill appropriate. RX sent. Prescription Request: Last medication check: 10-25-22 Last physical exam: 05-17-22 Next scheduled appointment: 05-02-23 Last date of refill on this medication 11/23/22 documented in this encounter [facility] 02-22-2023 Telephone encounter Note Reviewed chart. Refill appropriate. RX sent. [facility] 02-22-2023 Telephone encounter Note Prescription Request: Last medication check: 10-25-22 Last physical exam: 05-17-22 Next scheduled appointment: 05-02-23 Last date of refill on this medication 11/23/22 [facility] 02-14-2023 History of Present illness Narrative [facility] NOTE Chief complaint: Weakness and Numbness History of present illness: Salma Posadas is a 72 y.o. right handed female who presents in followup with numbness and weakness. She has a history of RSD. In 2004 she went to [facility] due to neck pain between her [...] Dr. Durbin. She saw a Neurologist at [facility]. She is on Lyrica [address] Durbin. She saw Dr. Flores and Dr. Mitchell at [facility] neurology at one time. In 2007 she [...] became nauseated and dizzy. She called the [facility] director of health education nurse. She suggested going to the emergency [...] Onset Cancer Father pt is unaware Other ([id number]) Mother Social History Socioeconomic History Marital status: [...] morning and 1 drop before bedtime. HYDROcodone-acetaminophen ([place]) 5-325 MG tablet Take 1 tablet by [...] Jaw jerk Lopez Babinski Down Down Coordination: Ivxxhr-ae-afee intact bilaterally. Vavx-gv-akey intact bilaterally. Rapid alternating movements are normal. [...] This dictation was done by using the e-SENS dictation system. It has been proofread but still may contain unrecognized voice recognition errors. documented in this encounter [facility] 01-16-2023 Telephone encounter Note Prescription Request: Last medication check: 10-25-22 Last physical exam: 05-17-22 Next scheduled appointment: 05-02-23 Last date of refill on this medication 07/31/22 [facility] 01-16-2023 Miscellaneous Notes Prescription Request: Last medication check: 10-25-22 Last physical exam: 05-17-22 Next scheduled appointment: 05-02-23 Last date of refill on this medication 07/31/22 documented in this encounter [facility] 01-01-2023 Telephone encounter Note Prescription Request: Last medication check: 10-25-22 Last physical exam: 05-17-22 Next scheduled appointment: 05-02-23 Last date of refill on this medication 06-26-22 [facility] 01-01-2023 Miscellaneous Notes Prescription Request: Last medication check: 10-25-22 Last physical exam: 05-17-22 Next scheduled appointment: 05-02-23 Last date of refill on this medication 06-26-22 documented in this encounter [facility] 12-25-2022 Note Reviewed chart. Refi ll appropriate. Rx sent. Oarrs reviewed and consistent with treatment plan. [facility] 12-25-2022 Telephone encounter Note Reviewed chart. Refill appropriate. Rx sent. Oarrs reviewed and consistent with treatment plan. [facility] 12-25-2022 Miscellaneous Notes Reviewed chart. Refill appropriate. Rx sent. Oarrs reviewed and consistent with treatment plan. [facility] [place] 12/07/22 [facility]SA Lyrica 06/29/22 Ordering provider: Date of last office visit: 10/25/2022 Date of next office visit: 05/02/2023 Updated/Validated preferred pharmacy: Yes Patient instructed to contact the pharmacy prior to picking up the medication: no (1) Medication name: Pt is out of this medication HYDROcodone-acetaminophen ([place]) 5-325 MG tablet Medication dosage: Monthly quantity [...] medication tab): 12/01/2022 documented in this encounter [facility] 12-25-2022 Telephone encounter Note CSA [place] 12/07/22 [facility]SA Lyrica 06/29/22 [facility] 12-25-2022 Telephone encounter Note Ordering provider: Date of last office visit: 10/25/2022 Date of next office visit: 05/02/2023 Updated/Validated preferred pharmacy: Yes Patient instructed to contact the pharmacy prior to picking up the medication: no (1) Medication name: Pt is out of this medication HYDROcodone-acetaminophen ([place]) 5-325 MG tablet Medication dosage: Monthly quantity [...] of last refill (see medication tab): 12/01/2022 [email or web address] [facility] 12-07-2022 Telephone encounter Note Pt stopped in office and signed [email or web address] [email or web address] [facility] 12-07-2022 Miscellaneous Notes Pt stopped in office and signed csma Left detailed voicemail to stop in office or no refills can be sent in. Sent [employer] message advising her to stop in office [...] medication tab): 10/25/22 (2) Medication name: HYDROcodone-acetaminophen ([place]) 5-325 MG tablet Medication dosage: 325 mg [...] medication tab): 11/03/22 documented in this encounter [facility] 12-05-2022 Telephone encounter Note Left detailed voicemail to stop in office or no refills can be sent in. [facility] 12-05-2022 Miscellaneous Notes Left detailed voicemail to stop in office or no refills can be sent in. Sent [employer] message advising her to stop in office [...] medication tab): 10/25/22 (2) Medication name: HYDROcodone-acetaminophen ([place]) 5-325 MG tablet Medication dosage: 325 mg [...] medication tab): 11/03/22 documented in this encounter [facility] 12-01-2022 Telephone encounter Note Sent mychart message advising her to stop in office carlene to sign. [facility] 12-01-2022 Telephone encounter Note Rx sent, OARRS report done, no inconsistencies, it looks like she needs to sign a new CS agreement. [facility] 11-30-2022 Telephone encounter Note Patient was [...] medication tab): 10/25/22 (2) Medication name: HYDROcodone-acetaminophen ([place]) 5-325 MG tablet Medication dosage: 325 mg [...] of last refill (see medication tab): 11/03/22 [facility] 11-23-2022 Telephone encounter Note Reviewed chart. Refill appropriate. RX sent. [facility] 11-23-2022 Miscellaneous Notes Reviewed chart. Refill appropriate. RX sent. Prescription Request: Last medication check: 10/25/22 Last physical exam: 05/17/22 Next scheduled appointment: 05/02/23 Last date of refill on this medication 08/28/22 documented in this encounter [facility] 11-23-2022 Telephone encounter Note Prescription Request: Last medication check: 10/25/22 Last physical exam: 05/17/22 Next scheduled appointment: 05/02/23 Last date of refill on this medication 08/28/22 [facility] 10-25-2022 History of Present illness Narrative Images [...] results.. 12. 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 Was prescribed Hydroxychloroquine and has stopped taking this because she did not like how she felt on it. Has followed up with neurologists and other specialist for her chronic issues and does not feel she has made much progress. Will take [place] and Lyrica as needed for pain and this is prescribed by Dr. Durbin. Hyperlipidemia: Takes Rosuvastatin daily as prescribed. From what I can see she has not had her cholesterol levels checked since 2020, so we will check this today while she is here. Health Maintenance: Has seen a agricultural adviser for a skin cancer screening check- Dr. [...] 10/25/2022 11:19 AM documented in this encounter [facility] 10-09-2022 Telephone encounter Note Rx sent. OARRS report reviewed with no discrepancies. CSA signed in June 2022. Follow up as scheduled. [facility] 10-09-2022 Miscellaneous Notes Rx sent. OARRS report [...] the medication: Yes documented in this encounter [facility] 10-09-2022 Telephone encounter Note Medication name: zolpidem [...] prior to picking up the medication: Yes [facility] 08-28-2022 Telephone encounter Note Rx sent. Follow up as scheduled. [facility] 08-28-2022 Miscellaneous Notes Rx sent. Follow up as scheduled. Prescription Request: Last medication check: 02/15/22 Last physical exam: 05/17/22 Next scheduled appointment: 10/25/22 Last date of refill on this medication 03/10/22 90 days 1 refill documented in this encounter [facility] 08-28-2022 Telephone encounter Note Prescription Request: Last medication check: 02/15/22 Last physical exam: 05/17/22 Next scheduled appointment: 10/25/22 Last date of refill on this medication 03/10/22 90 days 1 refill [facility] 07-25-2022 Telephone encounter Note Prescription Request: Last medication check: 07/12/22 Last physical exam: 05/17/22 Next scheduled appointment: 10/25/22 Last date of refill on this medication 05/04/22 30 days 2 refills [facility] 07-25-2022 Miscellaneous Notes Prescription Request: Last medication check: 07/12/22 Last physical exam: 05/17/22 Next scheduled appointment: 10/25/22 Last date of refill on this medication 05/04/22 30 days 2 refills documented in this encounter [facility] 06-26-2022 Telephone encounter Note Scheduled for 10/25/22. [facility] 06-26-2022 Miscellaneous Notes Scheduled for 10/25/22. Rx sent. Due for follow up in October for medication maintenance- please schedule. Prescription Request: Last medication check: 05/01/22 Last physical exam: 05/17/22 Next scheduled appointment: none CSA on file (date): na Last urine drug screen: na Last date of refill on this medication 12/26/21 90 day 1 refill documented in this encounter [facility] 06-26-2022 Telephone encounter Note Rx sent. Due for follow up in October for medication maintenance- please schedule. T [facility] 06-26-2022 Telephone encounter Note Prescription Request: Last medication check: 05/01/22 Last physical exam: 05/17/22 Next scheduled appointment: none CSA on file (date): na Last urine drug screen: na Last date of refill on this medication 12/26/21 90 day 1 refill T [facility] 05-22-2022 Telephone encounter Note Name of caller: Salma Contact phone number: [phone] Relationship to Patient: pt Provider: Practice: Plastics [...] business hours to return their call: No [facility] 05-22-2022 Miscellaneous Notes Name of caller: Salma Contact phone number: [phone] Relationship to Patient: pt Provider: Practice: Plastics [...] their call: No documented in this encounter [facility] 05-17-2022 Note Will provide additio nal pain medication for post procedure x 3 days (dermatological) [facility] 05-05-2022 Note OV notes, labs, refe rral and insurance card faxed. Patient notified. [facility] 05-04-2022 Note Please call and let her know I placed a referral to : Dr. Sherry Macias [facility] [address] [place] [address] [facility] 06-22-2020 Note HNO ID: [id number] Author: Ward Perez Service: ? Author Type: Physician Type: Progress Notes Filed: 06/23/2020 4:08 PM Note Text: NEUROLOGY CONSULT - VIRTUAL VISIT Done as part of COVID pandemic. Pt at home. in [place], [place]. Date of Evaluation: June 22, 2020 Referring physician: Dr. Xiomara Fowler, [facility] Primary physician: Shyam Roger MD [address] [place] [address] Reason for referral: Presumed [place] Pett[place] Syndrome [...] 22. She underwent negative cardiac eval at [facility] and was in hospital for 5 [...] from left leg, ? 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 Social History Tobacco Use [...] your satisfaction with (more content not included)... [facility] documented in this encounter [facility] Work [...] myalgia and myositis [facility] Diagnosis Primary insomnia Persistent disorder of initiating or maintaining sleep documented [facility]* Diagnosis Cervical radiculopathy- Primary Brachial neuritis or radiculitis nos Cervical spinal stenosis Spinal stenosis in cervical region Complex regional pain syndrome type 1 of left upper extremity Left hand weakness Muscle weakness (generalized) Left arm pain Pain in soft tissues of limb documented [facility] Diagnosis Cervical spinal stenosis Spinal stenosis in cervical region Complex regional pain syndrome type 1 of left upper extremity Cervical radiculopathy Brachial neuritis or radiculitis nos Left hand weakness Muscle weakness (generalized) Left arm pain Pain in soft tissues of limb documented [facility]* Diagnosis Reflex sympathetic dystrophy Unspecified reflex sympathetic dystrophy Primary insomnia Persistent disorder of initiating or maintaining sleep Fibromyalgia Unspecified myalgia and myositis documented [facility]* Diagnosis Irritation of oral cavity- Primary [facility] Consultation (Routine) - Pending Review Specialty Diagnoses / Procedures Referred By Joe eason Referred To Contact General Surgery Diagnoses Screening for colon cancer Procedures NE OFFICE/OUTPATIENT [facility] 60-74 MINUTES Curtis Cintron APRN - CNP [address] 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 Expl anation ACP-Advance Directive ACP-Power of Manager Of Allied Health Services Summary Purpose Family History No Family History [...] Fowler, DO [address] [place] [address] Referral ID Status Reason Start Date Expiration Date V isits Requested Visits Authorized [id number] Pending Review 02/14/2023 02/14/2024 1 1 Specialty Diagnoses / Procedures Referred By Contac t Referred To Contact Neurology Diagnoses Cervical spinal stenosis Complex regional pain syndrome type 1 of left upper extremity Cervical radiculopathy Left hand weakness Left arm pain Procedures Nerve conduction test with EMG Xiomara Fowler, DO [address] [place] [address] Referral ID Status Reason Start Date Expiration Date V isits Requested Visits Authorized [id number] Pending Review 02/14/2023 08/13/2023 1 1 Referral ID Status Reason Start Date Expiration Date Visits Re quested Visits Authorized [id number] Closed 02/14/2023 08/13/2023 1 1 Additional Source Comments Source Comments (unrecognize d section and content) In the event this informatio n is protected by the Federal Confidentiality of Alcohol and Drug Abuse Patient Records regulations: The Federal rules restrict any use of the information to criminally investigate or prosecute any alcohol or drug abuse patient.[facility] Care Teams (unrecognized sec tion and content) 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 [facility], [facility] [place] [address] PCP - General 12/24/17 Lacquer Spray Booth Operator Relationship Specialty Start Date End Date Noble Durbin MD [address] [facility], [facility] [place] [address] PCP - General 12/24/17 Lacquer Spray Booth Operator Relationship Specialty Start Date End Date Noble Durbin MD [address] [facility] [place] [address] PCP - General 12/24/17 Lacquer Spray Booth Operator Relationship Specialty Start Date End Date Noble Durbin MD [address] [facility] [place] [address] PCP - General 12/24/17 Lacquer Spray Booth Operator Relationship Specialty Start Date End Date Noble Durbin [facility] [place] [address] PCP - General 12/24/17 Lacquer Spray Booth Operator Relationship Specialty Start Date End Date Noble Durbin MD [address] [place] [address] PCP - General 12/24/17 Lacquer Spray Booth Operator Relationship Specialty Start Date End Date Noble Durbin MD [address] [place] [address] [place] [address] PCP - General 12/24/17 Lacquer Spray Booth Operator Relationship Specialty Start Date End Date Noble Durbin MD [address] [place] [address] [place] [address] PCP - General 12/24/17 Lacquer Spray Booth Operator Relationship Specialty Start Date End Date Noble Durbin MD [address] [place] [address] [place] [address] PCP - General 12/24/17 Lacquer Spray Booth Operator Relationship Specialty Start Date End Date Noble Durbni MD [address] [facility] [place] [address] PCP - General 12/24/17 Lacquer Spray Booth Operator Relationship Specialty Start Date End Date Noble Durbin MD [address] [facility] [place] [address] PCP - General 12/24/17 Lacquer Spray Booth Operator Relationship Specialty Start Date End Date Noble Durbin MD [address] [facility] [place] [address] PCP General 12/24/17 Lacquer Spray Booth Operator Relationship Specialty Start Date End Date Noble Durbin [facility] [place] [address] PCP General 12/24/17 Lacquer Spray Booth Operator Relationship Specialty Start Date End Date Noble Durbin MD [facility] [place] [address] PCP General 12/24/17 INFORMATION SOURCE (unrecogn ized section and content) DATE CREATED AUTHOR AUTHOR'S ORGANIZ ATION 05/12/2021 [facility] DATE CREATED AUTHOR AUTHOR'S ORGANIZ ATION 04/28/2023 [facility] [employer] [facility] Reason for Visit (unrecogniz ed section [...] Fowler, [address] [facility] [address] [place] [address] Referral ID Status Reason Start Date Expiration Date Visits Re quested Visits Authorized [id number] Closed 02/14/2023 08/13/2023 1 1 Reason Onset [...] BE BASED ON THE PRIMARY CLINICAL RECORDS. [employer] provides no warranty or guarantee of the accuracy or completeness of information in this document.
== END | disposition home or self-care (01) ==
LOC: PSN 07:49
PROVIDERS: PCP Family Medicine; Referring Provider Internal Medicine Cardiovascular Disease; Visit Provider Internal Medicine Cardiovascular Disease
DX: R00.2 Palpitations (principal); R07.9 Chest pain, unspecified; I10 Essential (primary) hypertension
CPT/HCPCS: 93225; 93226; 93306

== ENCOUNTER → 2023-06-06 | Outpatient (CLI) | payer MEDICARE, OTHER, SELFPAY ==
--- OUTSIDE RECORDS SUMMARY | 2023-06-06 07:05 | XMS RPT_ITS | CCD ---
Author Name Unknown Address [address] [place] [address] Organization [facility] Care Team Providers Care Axle Inspector Name Role Phone Noble Ruth Primary Care Provider [phone] Shyam Roger Primary Care Provider Ramakrishna CANO, Noble Michaud Primary Care Provider Ramakrishna CANO, Noble Michaud Primary Care Provider Ramakrishna CANO, Noble Michaud Primary Care Provider Noble Ruth MD Primary Care Provider LISA ROLAND Attending Unavailable NOBLE RUTH Primary Care Unavailable NOBLE RUTH Primary Care Unavailable LISA ROLAND Attending Unavailable NOBLE RUTH Primary Care Unavailable CURTIS CINTRON Attending Unavailable XIOMARA FOWLER Attending Unavailable NOBLE RUTH Primary Care Unavailable XIOMARA FOWLER Attending Unavailable XIOMARA FOWLER Referring Unavailable NOBLE RUTH Primary Care Unavailable Medications Current Medications Medication Drug Class(es) Dates Sig (Normalized) Sig (Original) acetaminophen 325 mg / HYDROcodone bitartrate 5 mg oral tablet (20 sources) Opioid Agonist Start: 10-02-2022 End: 04-20-2023 take 1 tablet by mouth every six hours as needed for pain HYDROcodone-acetam inophen (Crofton) 5-325 MG tablet Indications: Reflex sympathetic dystrophy [...] 09-24-2014 Chronic Diseases of mouth; excluding dental (5 sources) Bleeding from mouth; Translations: [Irritative hyperplasia [...] [Pain in left arm] 02-14-2023 Episodic Other nervous system disorders (2 sources) Complex regional pain syndrome type I; Translations: [Complex regional pain syndrome I, unspecified] Onset: 07-12-2022 Chronic Other nervous system disorders (1 source) Neuralgic amyotrophy; 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 Other nervous system disorders (2 sources) Complex regional pain syndrome of upper limb; Translations: [Complex regional pain syndrome I of left upper limb] Onset: 10-25-2022 Chronic Other nervous system disorders (20 sources) [...] 01-07-2022 Chronic Rheumatoid arthritis and related disease (17 sources) Inflammatory polyarthropathy; Translations: [Inflammatory polyarthropathy] Onset: 07-25-2022 10-25-2022 Chronic Thyroid disorders (20 sources) Acquired hypothyroidism; Translations: [Hypothyroidism, unspecified] Onset: 07-24-2018 07-24-2018 Chronic Past or Other Problems Problem Classification Problem Date Documented Date Episodic/Chronic Abdominal pain (20 sources) Epigastric pain; Translations: [Epigastric pain] Onset: 09-24-2014 09-24-2014 Episodic Allergic reactions (20 sources) Allergic contact dermatitis; Translations: [Allergic contact dermatitis due to other agents] Onset: 09-10-2020 09-10-2020 Episodic Mood disorders (15 sources) Mood disorders Onset: 10-24-2022 10-24-2022 Neoplasms [...] and signs involving the musculoskeletal system] Onset: 02-14-2023 Episodic Other connective tissue disease (2 sources) Pain in left arm; Translations: [Pain in left arm] Onset: 02-14-2023 Episodic Other non-traumatic joint disorders (20 sources) Joint pain; Translations: [Pain in unspecified joint] Onset: 05-01-2022 05-01-2022 Episodic Other screening for suspected conditions (not mental disorders or infectious disease) (3 sources) Patient encounter status; Translations: [Encounter for screening for malignant neoplasm of colon] Onset: 10-25-2022 10-25-2022 Episodic Other skin disorders (20 sources) Actinic keratosis; Translations: [Actinic keratosis] Onset: 12-15-2014 12-15-2014 Episodic Residual codes; unclassified (20 sources) Pain; Translations: [Pain, unspecified] Onset: 05-17-2022 05-17-2022 Episodic Spondylosis; intervertebral disc disorders; other back problems (20 sources) Backache; Translations: [Dorsalgia, unspecified] Onset: 05-13-2020 05-13-2020 Episodic Sprains and strains (20 sources) Sprain [...] mass index (BMI) [Ratio] 32.22 kg/m2 Lisa Collinskel [employer] Work Phone: [employer] 03-29-2023 08:42-0500 Body temperature 98.01 [degF] Lisa Collinskel [employer] Work Phone: [employer] 03-29-2023 08:42-0500 Body weight 90.54 kg Lisa Collinskel [employer] Work Phone: [employer] 03-29-2023 08:42-0500 Diastolic blood pressure 63 mm[Hg] Lisa Bridenthal [employer] Work Phone: [employer] 03-29-2023 08:42-0500 Heart rate 65 /min Lisa Bridenthal [employer] Work Phone: [employer] Giving [employer] 03-29-2023 08:42-0500 Respiratory rate 16 /min Lisa Bridenthal [employer] Work Phone: [employer] Giving Assistant 03-29-2023 08:42-0500 Systolic blood pressure 99 mm[Hg] Lisa Bridenthal [employer] Work Phone: [employer] Giving Assistant 02-14-2023 13:22-0500 Body height 167.6 cm Xiomara Fowler DO Work Phone: [employer] 02-14-2023 13:22-0500 Body mass index (BMI) [Ratio] 32.35 kg/m2 Xiomarawinnie Arizaran DO Work Phone: [employer] 02-14-2023 13:22-0500 Body weight 90.9 kg Xiomara Arizaran DO Work Phone: [employer] 02-14-2023 13:22-0500 Diastolic blood pressure 67 mm[Hg] Xiomara Fowler DO Work Phone: [employer] 02-14-2023 13:22-0500 Heart rate 69 /min Xiomara Fowler DO Work Phone: [employer] 02-14-2023 13:22-0500 Systolic blood pressure 103 mm[Hg] Xiomara Fowler DO Work Phone: [employer] 10-25-2022 10:42-0400 Body height 167.6 cm Curtis Cintron [employer] Work Phone: [employer] Giving Assistant 10-25-2022 10:42-0400 Body mass index (BMI) [Ratio] 32.6 kg/m2 Curtis Cintron [employer] Work Phone: [employer] Giving Assistant 10-25-2022 10:42-0400 Body weight 91.63 kg Curtis Cintron [employer] Work Phone: [facility] Giving Assistant 10-25-2022 10:42-0400 Diastolic blood pressure 70 mm[Hg] Curtis Cintron [employer] Work Phone: [facility] Giving Assistant 10-25-2022 10:42-0400 Heart rate 71 /min Curtis Cintron [employer] Work Phone: [facility] Giving Assistant 10-25-2022 10:42-0400 SaO2% (BldA) [Mass fraction] 96 % Curtis Cintron [employer] Work Phone: [facility] Giving Assistant 10-25-2022 10:42-0400 Systolic blood pressure 130 mm[Hg] Curtis Cintron [employer] Work Phone: [facility] Encounters Encounter Date Encounter Type Care Provider Facility Start: 05-23-2023 Refill Lisa Xiomy marnie [employer] Work Phone: [facility] Start: 03-29-2023 End: 03-29-2023 [facility] Start: 03-29-2023 End: 03-29-2023 Office outpatient visit 15 minutes Lisa Randyal [employer] Work Phone: [facility] Procedures Date Procedure Procedure Detail Performing Clinician Start: 03-13-2023 Nerve conduction jalen dies 11-12 studies Xiomara Fowler DO Work Phone: Start: 10-25-2022 Lipid 1996 panel - S rosa or Plasma Curtis Boston [employer] Work Phone: Start: 10-25-2022 Thyrotropin [Units/v olume] in Serum or Plasma Curtis Boston [employer] Work Phone: Start: 05-02-2022 Thyrotropin [Units/v olume] in Serum or Plasma Shaye Tony MD Work Phone: Start: 02-15-2021 End: 02-15-2021 Screening digital breast tomosynthesis bi Noble Ruth MD Work Phone: Start: 01-12-2021 Lipid 1996 panel - S rosa or Plasma Shaye Tony MD Work Phone: Start: 08-03-2020 [facility] REPORT Xiomara Barbosa Rina sharon DO Work Phone: Start: 01-10-2012 CONVERTED CYTOLOGY 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 Start: 01-12-2026 Lipid panel Lipid Panel [facility] Start: 10-26-2023 Thyroid stimulating hormone measurement TSH Level [facility] Start: 10-25-2023 DTaP/Tdap/Td Vaccine s (1 - Tdap) DTaP/Tdap/Td Vaccines (1 - Tdap) [facility] Immunizations Immunization Date Immunization Notes Care Provider Fa cili 02-01-2021 Pfizer SARS-CoV-2 Vaccination Shaye Tony MD Work Phone: [facility] 01-12-2021 pneumococcal polysaccharide vaccine, 23 valent Noble Ruth MD Work Phone: [facility] 06-19-2020 COVID-19, Pfizer, PF , 30mcg/0.3mL Xiomara Malcolm DO Work Phone: [facility] Work Phone: 05-30-2020 COVID-19, Pfizer, PF , 30mcg/0.3mL Xiomara Fowler DO Work Phone: [facility] Work Phone: 12-13-2009 hepatitis A vaccine, adult dosage Shaye Tony MD Work Phone: [facility] 06-09-2009 hepatitis A vaccine, adult dosage Shaye Tony MD Work Phone: [facility] 06-09-2009 tetanus and diphther ia toxoids, adsorbed, preservative free, for adult use (2 Lf of tetanus toxoid and 2 Lf of diphtheria toxoid) Shaye Tony MD Work Phone: [facility] Payers Date Payer Category Payer Medicare [facility] MEDICARE [facility] MEDICARE ADVANTAGE [id number] 2022-Present [address] [place] [address] Medicare HMO [id number] 2022 Medicare [id number] 2018 Medicare [employer] MEDICARE A ETNA MEDICARE-ADVANTAGE PPO [id number] 2018-Present [address] [place] [address] Medicare MEBRZLPJ [id number] 2010 Unknown ANTHEM BLUE PREF ERRED EPO [id number] 2010-2017 EPO [id number] 2008 Unknown [id number] 2008 Unknown [id number] 2008-Present [address] [place] [address] Other Government [id number] 2004 Self-pay SELF PAY HSP/MED ICAL SELF PAY [id number] 2004-2015 SELF PAY Indemnity [id number] Social History Date Type Detail Facility Tobacco smoking stat [facility] Unknown if ever smoked [facility] Start: 1950 Sex Assigned At Not on file C [facility] Start: 07-06-2020 [facility] Start: 07-06-2020 Tobacco use and exposure Never used [facility] Start: 07-06-2020 End: 03-29-2023 Alcohol intake Current non-drinker of alcohol (finding) [employer] Work Phone: Start: 12-30-2019 End: 01-11-2021 History SDOH Alcohol Frequency 1 [employer] Work Phone: Start: 12-30-2019 History SDOH Physica l Activity DPW 3 [employer] Work Phone: Start: 12-30-2019 End: 01-11-2021 History SDOH Financial 5 [employer] Work Phone: Start: 12-30-2019 End: 01-11-2021 History SDOH Transport Med [facility] Work Phone: Start: 05-07-2022 End: 10-25-2022 Exposure to SARS-CoV-2 (event) Not sure [facility] Start: 02-15-2021 End: 10-24-2022 Alcohol intake [facility] Start: 07-12-2022 End: 10-24-2022 Tobacco use panel [facility] Adolescent depressio n screening assessment 5 [facility] Goals Date Patient Goal Desired Activity /State Clinical Notes 06-22-2020 to 05-23-2023 Telephone Encounter - LYNN Beach CNP - 05/23/2023 12:00 PM ESTTelephone Encounter - LYNN Beach CNP - 05/23/2023 12:00 PM ESTFreda Bolden - 03/29/2023 8:20 AM EST Note Date & Type Note Facility 05-23-2023 Telephone encounter Note Reviewed chart. Refill appropriate. RX sent. [facility] 05-23-2023 Miscellaneous Notes Reviewed chart. Refill appropriate. RX sent. Prescription Request: Last medication check: 03/29/23 Last physical exam: 05/17/22 Next scheduled appointment: na Last date of refill on this medication 02/22/23 documented in this encounter [facility] 05-23-2023 Telephone encounter Note Prescription Request: Last medication check: 03/29/23 Last physical exam: 05/17/22 Next scheduled appointment: na Last date of refill on this medication 02/22/23 [facility] 03-29-2023 Evaluation + Plan note Associated Problem(s): Irritation of oral cavity Uncertain etiology. Symptoms have been ongoing for several weeks now. Mild erythema, will treat with topical nystatin swish and spit. If no improvement or worsens, recommend seeing ear nose throat specialist at that time. [facility] 03-29-2023 Miscellaneous Notes Associated Problem(s): Irritation of oral cavity Uncertain etiology. Symptoms have been ongoing for several weeks now. Mild erythema, will treat with topical nystatin swish and spit. If no improvement or worsens, recommend seeing ear nose throat specialist at that time. documented in this encounter [facility] 03-29-2023 History of Present illness Narrative Patient [...] at that time. Orders: - nystatin (Mycostatin) [id number] UNIT/ML suspension; Take 5 mL (500,000 Units) by mouth in the morning and 5 mL (500,000 Units) at noon and 5 mL (500,000 Units) in the evening and 5 mL (500,000 Units) before bedtime. Do all this for 7 days. Swish in mouth and spit out.., Starting Celeste 03/29/2023, Until Celeste 04/05/2023, Normal Follow up if symptoms worsen or fail to improve. SUBJECTIVE/OBJECTIVE: JAIRO - Salma Posadas (: 1950) is a [...] mouth twice a day 01/16/23 Yes Noble Ruth MD doxycycline (Vibramycin) 50 MG capsule Take 50 mg by mouth in the morning. 01/29/22 Yes Historical Provider, fluorometholone (FML) 0.1 % ophthalmic suspension Administer 1 drop into both eyes in the morning and 1 drop before bedtime. 02/10/22 Yes Historical Provider, HYDROcodone-acetaminophen (Crofton) 5-325 MG tablet Take 1 tablet by mouth every 6 hours as needed for severe pain (7-10). 03/21/23 04/20/23 Yes Lisa Roland APRN - GEOVANNY levothyroxine (Synthroid, Levoxyl) 88 MCG tablet Take 1 tablet (88 mcg) by mouth daily. 10/16/22 Yes Noble Ruth MD LORazepam (Ativan) 1 MG tablet Take 1 tablet (1 mg) by mouth every 6 hours as needed for anxiety. 02/27/23 Yes Noble Ruht MD omeprazole (PriLOSEC) [address] capsule take 1 capsule by mouth EVERY MORNING BEFORE BREAKFAST 01/01/23 Yes Noble Ruth MD pregabalin (Lyrica) 225 MG capsule Take 1 capsule (225 mg) by mouth 3 times daily. 03/21/23 Yes LYNN Beach CNP rosuvastatin (Crestor) 20 MG tablet take 1 tablet by mouth once daily 02/22/23 Yes LYNN Beach CNP triamterene-hydrochlorothiazide (Maxzide-25) 37.5-25 MG tablet take 1 tablet by mouth once daily 03/05/23 Yes Noble Ruth MD zolpidem (Ambien) 10 MG tablet Take [...] 03/29/2023 10:27 AM documented in this encounter [facility] 03-29-2023 Instructions LYNN Beach CNP - 03/29/2023 8:20 AM EST Please call Central Scheduling at [phone] to schedule your outpatient test documented in this encounter [facility] 03-27-2023 Note Orthopedics referral ordered for 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 [facility] 03-22-2023 Telephone encounter Note S: The patient is calling the [facility] about mouth swelling B: This has [...] wants to be seen Protocols used: Mouth [id number] [facility] 03-22-2023 Miscellaneous Notes S: The patient is calling the [facility] about mouth swelling B: This has [...] wants to be seen Protocols used: Mouth [id number] documented in this encounter [facility] 03-21-2023 Telephone encounter Note Reviewed chart. Refill appropriate. RX sent. [facility] 03-21-2023 Miscellaneous Notes Reviewed chart. Refill appropriate. RX sent. IDALMIS Zuniga 06/29/22 CSA Crofton 12/07/22 Prescription Request: Last medication check: 10-25-22 Last physical exam: 05-17-22 Next scheduled appointment: 05-02-23 Last date of refill on this medication norco and valeria 02/19/23, lyrica 01/26/23 Name of caller: Salma Posadas Contact phone number: [phone] Relationship to Patient: patient Provider: Dr. Ruth Practice: [facility] Chief Complaint/Reason for Call: Pt is calling back regarding her Rx refills, see closed TE from 03.16.2023. Pt stated she is out of her Rx. Please advise. Thank you. Best time of day caller can be reached: Any Patient advised that office/PCP has 24-48 business hours to return their call: Yes documented in this encounter [facility] 03-21-2023 Telephone encounter Note IDALMIS Zuniga 06/29/22 CSA Cro[place]on 12/07/22 Prescription Request: Last medication check: 10-25-22 Last physical exam: 05-17-22 Next scheduled appointment: 05-02-23 Last date of refill on this medication norco and ambien 02/19/23, lyrica 01/26/23 [facility] [employer] 03-21-2023 Telephone encounter Note Name of caller: Salma Posadas Contact phone number: [phone] Relationship to Patient: patient Provider: Dr. Ruth Practice: [facility] Chief Complaint/Reason for Call: Pt is calling back regarding her Rx refills, see closed TE from 03.16.2023. Pt stated she is out of her Rx. Please advise. Thank you. Best time of day caller can be reached: Any Patient advised that office/PCP has 24-48 business hours to return their call: Yes [facility] [employer] 03-13-2023 Note [facility] EMG/NCS report: Patient: Salma Posadas [...] for this study were taken from the [facility] reference values which were created in 2019. This dictation was done by using the [employer] dictation system. It has been proofread but still may contain unrecognized voice recognition errors. [facility] 03-13-2023 Procedure note Associated Ord er(s): NERVE CONDUCTION TEST WITH EMG [facility] EMG/NCS report: Patient: Salma Posadas [...] This dictation was done by using the [employer] dictation system. It has been proofread but still may contain unrecognized voice recognition errors. [employer] Phone: 03-13-2023 Procedure note Associated Ord er(s): NERVE CONDUCTION TEST WITH EMG [facility] Neurology [facility] EMG/NCS report: Patient: Salma Posadas [...] for this study were taken from the [facility] reference values which were created in 2019. This dictation was done by using the [employer] dictation system. It has been proofread but still may contain unrecognized voice recognition errors. documented in this encounter [facility] 02-22-2023 Miscellaneous Notes Reviewed chart. Refill appropriate. RX sent. Prescription Request: Last medication check: 10-25-22 Last physical exam: 05-17-22 Next scheduled appointment: 05-02-23 Last date of refill on this medication 11/23/22 documented in this encounter [facility] 02-22-2023 Telephone encounter Note Reviewed chart. Refill appropriate. RX sent. [facility] 02-22-2023 Telephone encounter Note Prescription Request: Last medication check: 10-25-22 Last physical exam: 05-17-22 Next scheduled appointment: 05-02-23 Last date of refill on this medication 11/23/22 [facility] 02-14-2023 History of Present illness Narrative [facility]UROLOGY CL[facility]IC NOTE Chief complaint: Weakness and Numbness History of present illness: Salma Posadas is a 72 y.o. right handed female who presents in followup with numbness and weakness. She has a history of RSD. In 2004 she went to [facility] due to neck pain between her shoulder [...] pain is treated through her PCP Dr. Ruth. She saw a Neurologist at [place]. She is on Lyrica [address] Ruth. She saw Dr. Flores and Dr. Mitchell at [facility] neurology at one time. In 2007 she [...] became nauseated and dizzy. She called the [facility] fashion consultant sales nurse. She suggested going to the emergency [...] Onset Cancer Father pt is unaware Other ([address]) Mother Social History Socioeconomic History Marital status: [...] morning and 1 drop before bedtime. HYDROcodone-acetaminophen (Crofton) 5-325 MG tablet Take 1 tablet by [...] Jaw jerk Lopez Babinski Down Down Coordination: Ooevmq-ul-wngo intact bilaterally. Cdqs-mz-xmjl intact bilaterally. Rapid alternating movements are normal. [...] This dictation was done by using the [employer] dictation system. It has been proofread but still may contain unrecognized voice recognition errors. documented in this encounter [facility] 01-16-2023 Telephone encounter Note Prescription Request: Last medication check: 10-25-22 Last physical exam: 05-17-22 Next scheduled appointment: 05-02-23 Last date of refill on this medication 07/31/22 [facility] 01-16-2023 Miscellaneous Notes Prescription Request: Last medication check: 10-25-22 Last physical exam: 05-17-22 Next scheduled appointment: 05-02-23 Last date of refill on this medication 07/31/22 documented in this encounter [facility] 01-01-2023 Telephone encounter Note Prescription Request: Last medication check: 10-25-22 Last physical exam: 05-17-22 Next scheduled appointment: 05-02-23 Last date of refill on this medication 06-26-22 [facility] 01-01-2023 Miscellaneous Notes Prescription Request: Last medication check: 10-25-22 Last physical exam: 05-17-22 Next scheduled appointment: 05-02-23 Last date of refill on this medication 06-26-22 documented in this encounter [facility] 12-25-2022 Note Reviewed chart. Refi ll appropriate. Rx sent. Oarrs reviewed and consistent with treatment plan. [facility] 12-25-2022 Telephone encounter Note Reviewed chart. Refill appropriate. Rx sent. Oarrs reviewed and consistent with treatment plan. [facility] 12-25-2022 Miscellaneous Notes Reviewed chart. Refill appropriate. Rx sent. Oarrs reviewed and consistent with treatment plan. CSA Crofton 12/07/22 CSA Lyrica 06/29/22 Ordering provider: Date of last office visit: 10/25/2022 Date of next office visit: 05/02/2023 Updated/Validated preferred pharmacy: Yes Patient instructed to contact the pharmacy prior to picking up the medication: no (1) Medication name: Pt is out of this medication HYDROcodone-acetaminophen (Crofton) 5-325 MG tablet Medication dosage: Monthly quantity [...] medication tab): 12/01/2022 documented in this encounter [facility] 12-25-2022 Telephone encounter Note CSA [place] 12/07/22 CSA Lyrica 06/29/22 [facility] 12-25-2022 Telephone encounter Note Ordering provider: Date of last office visit: 10/25/2022 Date of next office visit: 05/02/2023 Updated/Validated preferred pharmacy: Yes Patient instructed to contact the pharmacy prior to picking up the medication: no (1) Medication name: Pt is out of this medication HYDROcodone-acetaminophen (Crofton) 5-325 MG tablet Medication dosage: Monthly quantity [...] of last refill (see medication tab): 12/01/2022 [facility] Giving Assistant 12-07-2022 Telephone encounter Note Pt stopped in office and signed csma [facility] 12-07-2022 Miscellaneous Notes Pt stopped in office and signed csma Left detailed voicemail to stop in office or no refills can be sent in. Sent mychart message advising her to stop in office carlene to sign. Rx sent, OARRS report done, no inconsistencies, it looks like she needs to sign a new CS agreement. Patient was wondering if the office can send both prescription in as she does not want to keep going back and fourth to the pharmacy. Please advise. Ordering provider: Dr. Ruth Date of last office visit: 10/25/22 Date [...] medication tab): 10/25/22 (2) Medication name: HYDROcodone-acetaminophen (Crofton) 5-325 MG tablet Medication dosage: 325 mg [...] medication tab): 11/03/22 documented in this encounter [facility] 12-05-2022 Telephone encounter Note Left detailed voicemail to stop in office or no refills can be sent in. [facility] 12-05-2022 Miscellaneous Notes Left detailed voicemail to stop in office or no refills can be sent in. Sent mychart message advising her to stop in office carlene to sign. Rx sent, OARRS report done, no inconsistencies, it looks like she needs to sign a new CS agreement. Patient was wondering if the office can send both prescription in as she does not want to keep going back and fourth to the pharmacy. Please advise. Ordering provider: Dr. Ruth Date of last office visit: 10/25/22 Date [...] medication tab): 10/25/22 (2) Medication name: HYDROcodone-acetaminophen (Crofton) 5-325 MG tablet Medication dosage: 325 mg [...] medication tab): 11/03/22 documented in this encounter [facility] 12-01-2022 Telephone encounter Note Sent GoCardlesst message advising her to stop in office carlene to sign. [facility] 12-01-2022 Telephone encounter Note Rx sent, OARRS report done, no inconsistencies, it looks like she needs to sign a new CS agreement. [facility] 11-30-2022 Telephone encounter Note Patient was wondering if the office can send both prescription in as she does not want to keep going back and fourth to the pharmacy. Please advise. Ordering provider: Dr. Ruth Date of last office visit: 10/25/22 Date [...] medication tab): 10/25/22 (2) Medication name: HYDROcodone-acetaminophen (Crofton) 5-325 MG tablet Medication dosage: 325 mg [...] of last refill (see medication tab): 11/03/22 [facility] 11-23-2022 Telephone encounter Note Reviewed chart. Refill appropriate. RX sent. [facility] 11-23-2022 Miscellaneous Notes Reviewed chart. Refill appropriate. RX sent. Prescription Request: Last medication check: 10/25/22 Last physical exam: 05/17/22 Next scheduled appointment: 05/02/23 Last date of refill on this medication 08/28/22 documented in this encounter [facility] 11-23-2022 Telephone encounter Note Prescription Request: Last medication check: 10/25/22 Last physical exam: 05/17/22 Next scheduled appointment: 05/02/23 Last date of refill on this medication 08/28/22 [facility] 10-25-2022 History of Present illness Narrative Images [...] results.. 12. Screening for colon cancer - [facility] General Surgery Dana Follow up in about 6 months (around 04/27/2023) for AWV and fasting blood work. 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 Was prescribed Hydroxychloroquine and has stopped taking this because she did not like how she felt on it. Has followed up with neurologists and other specialist for her chronic issues and does not feel she has made much progress. Will take Crofton and Lyrica as needed for pain and this is prescribed by Dr. Ruth. Hyperlipidemia: Takes Rosuvastatin daily as prescribed. From what I can see she has not had her cholesterol levels checked since 2020, so we will check this today while she is here. Health Maintenance: Has seen a professional fighter for a skin cancer screening check- Dr. [...] 10/25/2022 11:19 AM documented in this encounter [facility] 10-09-2022 Telephone encounter Note Rx sent. OARRS report reviewed with no discrepancies. CSA signed in June 2022. Follow up as scheduled. [facility] 10-09-2022 Miscellaneous Notes Rx sent. OARRS report [...] other doctor or facility: No Ordering provider: Ramakrishna Date of last office visit: 07.12.22 Date of next office visit: 10.25.22 Date of last refill: (see medication tab): 08.31.22 Updated/Validated preferred pharmacy: Yes Patient instructed to contact the pharmacy prior to picking up the medication: Yes documented in this encounter [facility] 10-09-2022 Telephone encounter Note Medication name: zolpidem [...] other doctor or facility: No Ordering provider: Ramakrishna Date of last office visit: 07.12.22 Date of next office visit: 10.25.22 Date of last refill: (see medication tab): 08.31.22 Updated/Validated preferred pharmacy: Yes Patient instructed to contact the pharmacy prior to picking up the medication: Yes [facility] 08-28-2022 Telephone encounter Note Rx sent. Follow up as scheduled. [facility] 08-28-2022 Miscellaneous Notes Rx sent. Follow up as scheduled. Prescription Request: Last medication check: 02/15/22 Last physical exam: 05/17/22 Next scheduled appointment: 10/25/22 Last date of refill on this medication 03/10/22 90 days 1 refill documented in this encounter [facility] 08-28-2022 Telephone encounter Note Prescription Request: Last medication check: 02/15/22 Last physical exam: 05/17/22 Next scheduled appointment: 10/25/22 Last date of refill on this medication 03/10/22 90 days 1 refill [facility] 07-25-2022 Telephone encounter Note Prescription Request: Last medication check: 07/12/22 Last physical exam: 05/17/22 Next scheduled appointment: 10/25/22 Last date of refill on this medication 05/04/22 30 days 2 refills [facility] 07-25-2022 Miscellaneous Notes Prescription Request: Last medication check: 07/12/22 Last physical exam: 05/17/22 Next scheduled appointment: 10/25/22 Last date of refill on this medication 05/04/22 30 days 2 refills documented in this encounter [facility] 06-26-2022 Telephone encounter Note Scheduled for 10/25/22. [facility] 06-26-2022 Miscellaneous Notes Scheduled for 10/25/22. Rx sent. Due for follow up in October for medication maintenance- please schedule. Prescription Request: Last medication check: 05/01/22 Last physical exam: 05/17/22 Next scheduled appointment: none CSA on file (date): na Last urine drug screen: na Last date of refill on this medication 12/26/21 90 day 1 refill documented in this encounter [facility] 06-26-2022 Telephone encounter Note Rx sent. Due for follow up in October for medication maintenance- please schedule. [facility] 06-26-2022 Telephone encounter Note Prescription Request: Last medication check: 05/01/22 Last physical exam: 05/17/22 Next scheduled appointment: none CSA on file (date): na Last urine drug screen: na Last date of refill on this medication 12/26/21 90 day 1 refill [facility] 05-22-2022 Telephone encounter Note Name of caller: Salma Contact phone number: [phone] Relationship to Patient: pt Provider: Practice: Plastics [...] business hours to return their call: No [facility] 05-22-2022 Miscellaneous Notes Name of caller: Salma Contact phone number: [phone] Relationship to Patient: pt Provider: Practice: Plastics [...] their call: No documented in this encounter [facility] 06-22-2020 Note HNO ID: [id number] Author: Ward Perez Service: ? Author Type: Physician Type: Progress Notes Filed: 06/23/2020 4:08 PM Note Text: NEUROLOGY CONSULT - VIRTUAL VISIT Done as part of COVID pandemic. Pt at home. in [place], [place]. Date of Evaluation: June 22, 2020 Referring physician: Dr. 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 She underwent negative cardiac eval at [facility] and was in hospital for 5 days. [...] from left leg, ? 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 Social History Tobacco Use [...] your satisfaction with (more content not included)... [facility] documented in this encounter [facility] Work Phone: Evaluation note* Diagnosis Acquired hypothyroidism Unspecified hypothyroidism documented in this encounter [facility]* Diagnosis Primary insomnia- Primary Persistent [...] malignant neoplasms, colon [facility] Diagnosis Reflex sympathetic dystrophy Unspecified reflex sympathetic dystrophy Fibromyalgia Unspecified myalgia and myositis [facility] Diagnosis Reflex sympathetic dystrophy Unspecified reflex sympathetic dystrophy Fibromyalgia Unspecified myalgia and myositis [facility] Primary insomnia Persistent disorder of initiating or maintaining sleep [facility] Diagnosis Cervical radiculopathy- Primary Brachial neuritis or radiculitis nos Cervical spinal stenosis Spinal stenosis in cervical region Complex regional pain syndrome type 1 of left upper extremity Left hand weakness Muscle weakness (generalized) Left arm pain Pain in soft tissues of limb [facility] Cervical spinal stenosis Spinal stenosis in cervical region Complex regional pain syndrome type 1 of left upper extremity Cervical radiculopathy Brachial neuritis or radiculitis nos Left hand weakness Muscle weakness (generalized) Left arm pain Pain in soft tissues of limb [facility] Reflex sympathetic dystrophy Unspecified reflex sympathetic dystrophy Primary insomnia Persistent disorder of initiating or maintaining sleep Fibromyalgia Unspecified myalgia and myositis [facility] Diagnosis Irritation of oral cavity- Primary [facility] Consultation (Routine) - Pending Review Specialty Diagnoses / Procedures Referred By Joe eason Referred To Contact General Surgery Diagnoses Screening for colon cancer Procedures MD OFFICE/OUTPATIENT NEW HIGH [facility] 60-74 MINUTES Curtis Cintron APRN - CNP [address] 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 Summary Purpose Family History No Family History Records FoundNo Family History Records FoundNo Family History Records Found Reason for Referral Specialty Diagnoses / Procedures Referred By Contac t Referred To Contact Radiology Diagnoses Cervical spinal stenosis Complex regional pain syndrome type 1 of left upper extremity Cervical radiculopathy Left hand weakness Left arm pain Procedures MR cervical spine wo contrast Xiomara Fowler, DO [address] [place] [address] Referral ID Status Reason Start Date Expiration Date V isits Requested Visits Authorized [id number] Pending Review 02/14/2023 02/14/2024 1 1 Specialty Diagnoses / Procedures Referred By Contac t Referred To Contact Neurology Diagnoses Cervical spinal stenosis Complex regional pain syndrome type 1 of left upper extremity Cervical radiculopathy Left hand weakness Left arm pain Procedures Nerve conduction test with EMG Xiomara Fowler, DO [address] [place] [address] Referral ID Status Reason Start Date Expiration Date V isits Requested Visits Authorized [id number] Pending Review 02/14/2023 08/13/2023 1 1 Referral ID Status Reason Start Date Expiration Date Visits Re quested Visits Authorized [id number] Closed 02/14/2023 08/13/2023 1 1 Additional Source Comments Source Comments (unrecognize d section and content) In the event this informatio n is protected by the Federal Confidentiality of Alcohol and Drug Abuse Patient Records regulations: The Federal rules restrict any use of the information to criminally investigate or prosecute any alcohol or drug abuse patient.[facility] Care Teams (unrecognized sec tion and content) Axle Inspector Relationship Specialty Start Date End Date Noble Ruth MD [facility], [facility] [place] [id number] PCP - General 12/24/17 Axle Inspector Relationship Specialty Start Date [place] [address] PCP - General 12/24/17 Axle Inspector Relationship Specialty Start Date End Date Noble Ruth MD [address] [place] [id number] PCP - General 12/24/17 Axle Inspector Relationship Specialty Start Date End Date Noble Ruth MD [address] [place] [id number] PCP - General 12/24/17 Axle Inspector Relationship Specialty Start Date End Date Noble Ruth MD [address] [place] [id number] PCP - General 12/24/17 Axle Inspector Relationship Specialty Start Date End Date Noble Ruth MD [address] [place] [id number] PCP - General 12/24/17 Axle Inspector Relationship Specialty Start Date End Date Noble Ruth MD [address] [place] [id number] PCP - General 12/24/17 Axle Inspector Relationship Specialty Start Date End Date Noble Ruth MD [address] [place], [place] [address] [address] PCP - General 12/24/17 Axle Inspector Relationship Specialty Start Date End Date Noble Ruth MD [address] [facility] [place] [address] PCP - General 12/24/17 Axle Inspector Relationship Specialty Start Date End Date Noble Ruth MD [address] [facility] [place] [phone] PCP - General 12/24/17 Axle Inspector Relationship Specialty Start Date End Date Noble Ruth MD [facility] [place] [address] PCP - General 12/24/17 Axle Inspector Relationship Specialty Start Date End Date Noble Ruth MD 25 [facility] [place] [address] PCP - General 12/24/17 Axle Inspector Relationship Specialty Start Date End Date Noble Ruth MD 25 [facility] [place] [address] PCP - General 12/24/17 Axle Inspector Relationship Specialty Start Date End Date Noble Ruth MD 25 [facility] [place] [address] PCP - General 12/24/17 INFORMATION SOURCE (unrecogn ized section and content) DATE CREATED AUTHOR AUTHOR'S ORGANIZ ATION 05/12/2021 [facility] DATE CREATED AUTHOR AUTHOR'S ORGANIZ ATION 05/26/2023 [facility] Reason for Visit (unrecogniz ed section and [...] Follow-up Specialty Diagnoses / Procedures Referred By Joe t Referred To Contact Neurology Diagnoses Cervical spinal stenosis Complex regional pain syndrome type 1 of left upper extremity Cervical radiculopathy Left hand weakness Left arm pain Procedures Nerve conduction test with EMG Xiomara Fowler, DO [address] [facility] [address] [place] [address] Referral ID Status Reason Start Date Expiration Date Visits Re quested Visits Authorized [id number] Closed 02/14/2023 08/13/2023 1 1 Reason Onset [...] BE BASED ON THE PRIMARY CLINICAL RECORDS. [employer] provides no warranty or guarantee of the accuracy or completeness of information in this document.
--- NOTE | 2023-06-08 14:17 | STRESSREP ---
Stress Test Report Date: 06/06/2023 Procedure: Exercise tolerance test/imaging study Indications: Abnormal echocardiogram Consent: Per the patient Procedure: The patient exercised on a Kwadwo protocol for 5 minutes and 15 seconds achieving a peak heart rate of 141 bpm (94% predicted maximal heart rate) with a peak blood pressure 160/58 mmHg and a peak MET capacity of 7.0 METs. The baseline ECG demonstrated sinus rhythm. The peak exercise ECG demonstrated no ischemic changes. There were no cardiac dysrhythmias pretest, during exercise, or recovery. The functional capacity was considered good for age. There was no complaint of chest discomfort during exercise or recovery. The examination was discontinued secondary to target heart rate being achieved. The patient was injected with 11.0 mCi of technetium 99m Cardiolite and subsequently rest SPECT Cardiolite nuclear imaging was obtained in the horizontal long, vertical long, and short axis views. Post-exercise, the patient was injected with 33.7 mCi of technetium 99m Cardiolite and subsequently stress SPECT Cardiolite nuclear imaging was obtained in the horizontal long, vertical long, and short axis views. A gated Cardiolite study at peak stress was obtained. Rest and stress SPECT Cardiolite nuclear imaging status post realignment, normalization, and attenuation correction, demonstrates the appearance of relative uniform tracer uptake and myocardial perfusion appearing within normal limits. There is end systolic thickening and brightening. The gated Cardiolite study demonstrates myocardial thickening and inward wall motion. The reported LVEF is 76%. Impression: 1. Technically adequate (percent predicted maximal heart rate greater than 85%) exercise tolerance test 2. Peak exercise ECG no ischemic changes 3. There were no cardiac dysrhythmias pretest, during exercise, or recovery 4. Rest and stress SPECT Cardiolite nuclear imaging demonstrate relative uniform tracer uptake and myocardial perfusion appearing within normal limits. 5. The gated Cardiolite study reports an LVEF of 76%. The right ventricle appears normal in size with normal systolic function. This note was generated with [employer] software. It may contain incorrect words, spelling, and punctuation that were not noted in checking the note before signing.
== END | disposition home or self-care (01) ==
LOC: CVS 06:57
PROVIDERS: PCP Family Medicine; Referring Provider Nurse Practitioner Gerontology; Visit Provider Nurse Practitioner Gerontology
DX: R93.89 Abnormal findings on diagnostic imaging of other specified body structures (principal); R07.9 Chest pain, unspecified; R00.2 Palpitations; I10 Essential (primary) hypertension; E78.5 Hyperlipidemia, unspecified
CPT/HCPCS: 78452; 93017; A9500; A4216

== ENCOUNTER → 2023-09-11 | Outpatient (CLI) | payer MEDICARE, OTHER, SELFPAY ==
[2023-09-11 10:05] LABS: Absolute Lymphocyte Count 2.17 X10^3/uL (0.83-4.51); Absolute Neutrophil Count 2.9 X10^3/uL (2.0-7.7); Basophil# 0.08 X10^3/uL; Basophil% 1.4 % (0-1); Eosinophils% 1.8 % (0-5); Hematocrit 39.6 % (37-47); Hemoglobin 13.1 g/dL (12.0-15.0); Lymphocyte # 2.17 X10^3/ul (0.83-4.51); Lymphocyte % 38.4 % (19-41); Mean Corp Hgb Conc 33.1 g/dL (32-36); Mean Corpuscular Hgb 29.4 pg (27.0-32.0); Mean Corpuscular Volume 88.8 fL (81-99); Mean Platelet Vol. 11.6 fl (6.2-12.0); Monocyte# 0.43 X10^3/uL; Monocyte% 7.6 % (0-10); NRBC Flagged by Analyzer 0 % (0-5); Neutrophil # 2.86 X10^3/uL (2.7-7.7); Neutrophil % 50.6 % (47-70); Platelet Count 197 K/mm3 (150-450); RBC Distribution Width CV 13.2 % (11.6-14.6); RBC Distribution Width SD 43.3 fl (35.1-43.9); Red Blood Count 4.46 M/mm3 (4.2-5.4); White Blood Count 5.7 K/mm3 (4.4-11.0)
[2023-09-11 10:59] LABS: ALB/GLOB Ratio 1.2 RATIO (0.9-2.4); AST(SGOT) 19 U/L (15-37); Alanine Aminotransfer ALT/SGPT 25 U/L (13-56); Albumin, Serum 3.7 g/dL (3.2-5.0); Alkaline Phosphatase 54 U/L (45-117); Anion Gap 7 (5-15); BUN 15 mg/dL (7-18); BUN/Creat Ratio 15.4 RATIO (10-20); Calcium,Total 9.3 mg/dL (8.5-10.1); Chloride 101 mmol/L (98-107); Creatinine, Serum 0.97 mg/dL (0.55-1.02); EST Glomerular Filtration Rate 60 mL/min (>60); Est Glom Filt Rate - Afr Amer 72 mL/min (>60); Globulin 3.2 g/dL (2.2-4.2); Glucose 89 mg/dL (74-106); Potassium 4.1 mmol/L (3.5-5.1); Protein, Total 6.9 g/dL (6.4-8.2); Sodium Level 136 mmol/L (136-145)
== END | disposition home or self-care (01) ==
LOC: MTLAB 08:52
PROVIDERS: PCP Family Medicine; Referring Provider Internal Medicine Rheumatology; Visit Provider Internal Medicine Rheumatology
DX: M06.4 Inflammatory polyarthropathy (principal); Z79.899 Other long term (current) drug therapy; R76.8 Other specified abnormal immunological findings in serum
CPT/HCPCS: 36415; 80053; 85025

== ENCOUNTER → 2023-12-04 | Outpatient (CLI) | payer MEDICARE, OTHER, SELFPAY ==
[2023-12-04 17:26] LABS: Absolute Lymphocyte Count 2.23 X10^3/uL (0.83-4.51); Absolute Neutrophil Count 3.7 X10^3/uL (2.0-7.7); Basophil# 0.05 X10^3/uL; Basophil% 0.8 % (0-1); Eosinophil# 0.18 X10^3/uL; Eosinophils% 2.7 % (0-5); Hematocrit 39.9 % (37-47); Hemoglobin 13.2 g/dL (12.0-15.0); Lymphocyte # 2.23 X10^3/ul (0.83-4.51); Lymphocyte % 33.9 % (19-41); Mean Corp Hgb Conc 33.1 g/dL (32-36); Mean Corpuscular Hgb 29.1 pg (27.0-32.0); Mean Corpuscular Volume 87.9 fL (81-99); Monocyte# 0.37 X10^3/uL; Monocyte% 5.6 % (0-10); NRBC Flagged by Analyzer 0 % (0-5); Neutrophil # 3.72 X10^3/uL (2.7-7.7); Neutrophil % 56.7 % (47-70); Platelet Count 204 K/mm3 (150-450); RBC Distribution Width CV 13.9 % (11.6-14.6); RBC Distribution Width SD 44.9 fl (35.1-43.9); Red Blood Count 4.54 M/mm3 (4.2-5.4); White Blood Count 6.6 K/mm3 (4.4-11.0)
[2023-12-04 17:39] LABS: ALB/GLOB Ratio 1.3 RATIO (0.9-2.4); AST(SGOT) 16 U/L (15-37); Alanine Aminotransfer ALT/SGPT 24 U/L (13-56); Alkaline Phosphatase 54 U/L (45-117); Anion Gap 5 (5-15); BUN 12 mg/dL (7-18); Calcium,Total 9.2 mg/dL (8.5-10.1); Chloride 100 mmol/L (98-107); Creatinine, Serum 0.86 mg/dL (0.55-1.02); EST Glomerular Filtration Rate 69 mL/min (>60); Est Glom Filt Rate - Afr Amer 84 mL/min (>60); Globulin 3.1 g/dL (2.2-4.2); Glucose 96 mg/dL (74-106); Potassium 3.7 mmol/L (3.5-5.1); Protein, Total 7.1 g/dL (6.4-8.2); Sodium Level 133 mmol/L (136-145)
== END | disposition home or self-care (01) ==
LOC: MTLAB 16:43
PROVIDERS: PCP Family Medicine; Referring Provider Internal Medicine Rheumatology; Visit Provider Internal Medicine Rheumatology
DX: M06.4 Inflammatory polyarthropathy (principal); R76.8 Other specified abnormal immunological findings in serum; Z79.899 Other long term (current) drug therapy
CPT/HCPCS: 36415; 80053; 85025

== ENCOUNTER → 2024-03-13 | Outpatient (CLI) | payer MEDICARE, OTHER, SELFPAY ==
--- NOTE | 2024-03-13 10:22 | RAD_ITS ---
STUDY: X-RAY CHEST REASON FOR EXAM: Female, 73 years old. Ongoing cough TECHNIQUE: PA and lateral views of the chest. COMPARISON: Comparison is made with prior study dated September 03, 2018. FINDINGS: Hyperinflation. Lingular infiltrate. There is no demonstrated pleural abnormality. Normal size heart. Normal mediastinum and alfreda. Normal visualized pulmonary arteries. There is atherosclerotic tortuosity of the aortic arch and descending thoracic aorta. Normal visualized thoracic spine. Normal visualized ribs, clavicles, and shoulders. There is no demonstrated abnormality of the visualized soft tissue structures of the upper abdomen. RAD/Chest PA and Lateral IMPRESSION: Hyperinflation. Lingular infiltrate. Electronically Signed: Stan Jay MD at 11:26 EST ,
== END | disposition home or self-care (01) ==
PROVIDERS: PCP Family Medicine; Referring Provider Physician Assistant Surgical; Visit Provider Physician Assistant Surgical
DX: J20.9 Acute bronchitis, unspecified (principal)
CPT/HCPCS: 71046

== ENCOUNTER 2024-06-04 12:56 | Outpatient (CLI) | payer MEDICARE, OTHER, SELFPAY ==
--- NOTE | 2024-06-04 13:09 | CT_ITS ---
PROCEDURE: LIMITED CHEST CT CARDIAC ONLY 06/04/2024 REASON FOR EXAM: Chest pain. TECHNIQUE: Chest CT with i and without ntravenous contrast. CONTRAST: 100 cc of Isovue-300. One or more dose reduction techniques were used (e.g., Automated exposure control, adjustment of the mA and/or kV according to patient size, use of iterative reconstruction technique). COMPARISON: None. FINDINGS: Hardware: None. Lymph nodes: No mediastinal hilar or axillary lymphadenopathy. Heart and Vasculature: Normal heart size. Pericardial thickening along the inferior right lateral aspect of the pericardium suggestive of small pericardial effusion. Atherosclerotic calcifications of the thoracic aorta. Pulmonary arteries are unremarkable. Coronary artery calcification. Lungs and Airways: The lungs are normally expanded and clear. Pleura: No pleural effusion. No pneumothorax. Upper Abdomen: Visualized portions of the upper abdominal viscera are unremarkable. Bones: Bone windows are unremarkable. CT/Limited Chest CT Cardiac Only IMPRESSION: Coronary artery calcification. Thickening of the pericardium along the posterior inferior right lateral aspect . Reading Location: [place] [address]
[2024-06-04 13:30] VITALS: BP 150/90; PULSE 58; RESP 16; O2SAT 98; BMI 30.7
[2024-06-04 13:51] VITALS: PULSE 54
[2024-06-04] MEDS: Nitroglycerin SL (ED/IMG/CATH) 0.4 MG TABLET SL (13:51)
[2024-06-04 13:55] VITALS: BP 114/62; PULSE 62; RESP 16; O2SAT 96
--- NOTE | 2024-06-09 11:41 | CCTA.WCONT ---
CCTA w/Cont Coronary Arteries Date of Study:: 06/04/24 Abnormal findings on diagnostic heart cath Coronary Calcium Scoring: High-resolution Computed Tomographic imaging of the chest was performed on [06/04/2024], with particular attention paid to the coronary arteries. Intravenous contrast agent was administered per protocol and images reconstructed and displayed. LEFT MAIN CORONARY ARTERY: Left main coronary artery arises from the left coronary cusp with no significant atherosclerotic plaquing or calcification present. Coronary calcium score 0. [] LEFT ANTERIOR DESCENDING CORONARY ARTERY: Left anterior descending artery arises from the left main coronary artery. There is mild eccentric calcification noted in 2 different spots in the proximal and mid segment with less than 30% stenosis noted. Coronary calcium score is 117. [] LEFT CIRCUMFLEX CORONARY ARTERY: Nondominant circumflex artery with mild eccentric atherosclerotic plaquing with calcification with nonobstructive disease noted coronary calcium score is 75.7. [] RIGHT CORONARY ARTERY: Dominant right coronary artery with no significant atherosclerotic plaquing noted vessel courses and gives of the posterior descending artery and posterolateral vessel. Coronary calcium score is 0. [] THORACIC AORTA: [] PULMONARY ARTERY: [] LEFT ATRIUM/APPENDAGE: [] MITRAL VALVE: [] AORTIC VALVE: [] LEFT VENTRICLE: [] CORONARY CALCIUM SCORE: Total Agatston score is 193 placing patient between the 50th and 75th percentile. Minimal eccentric atherosclerotic plaquing is noted in the left anterior descending artery and circumflex artery. []
== END 2024-06-04 23:59 | disposition home or self-care (01) ==
PROVIDERS: PCP Family Medicine; Referring Provider Internal Medicine Cardiovascular Disease; Visit Provider Internal Medicine Cardiovascular Disease
DX: R93.1 Abnormal findings on diagnostic imaging of heart and coronary circulation (principal); I70.90 Unspecified atherosclerosis; R07.9 Chest pain, unspecified; R06.09 Other forms of dyspnea; I10 Essential (primary) hypertension; R00.2 Palpitations
CPT/HCPCS: 75571; 75574; 76380; Q9967

== ENCOUNTER → 2024-06-23 | Outpatient (CLI) | payer MEDICARE, OTHER, SELFPAY ==
[2024-06-23 18:21] LABS: Absolute Lymphocyte Count 3.19 X10^3/uL (0.83-4.51); Absolute Neutrophil Count 3.4 X10^3/uL (2.0-7.7); Basophil# 0.08 X10^3/uL; Basophil% 1.1 % (0-1); Eosinophil# 0.19 X10^3/uL; Eosinophils% 2.6 % (0-5); Hematocrit 40.7 % (37-47); Hemoglobin 13.5 g/dL (12.0-15.0); Lymphocyte # 3.19 X10^3/ul (0.83-4.51); Lymphocyte % 43.3 % (19-41); Mean Corp Hgb Conc 33.2 g/dL (32-36); Mean Corpuscular Hgb 29.5 pg (27.0-32.0); Mean Corpuscular Volume 89.1 fL (81-99); Mean Platelet Vol. 11.4 fl (6.2-12.0); Monocyte# 0.46 X10^3/uL; Monocyte% 6.3 % (0-10); NRBC Flagged by Analyzer 0 % (0-5); Neutrophil # 3.43 X10^3/uL (2.7-7.7); Neutrophil % 46.6 % (47-70); Platelet Count 219 K/mm3 (150-450); RBC Distribution Width SD 45.6 fl (35.1-43.9); Red Blood Count 4.57 M/mm3 (4.2-5.4); White Blood Count 7.4 K/mm3 (4.4-11.0)
[2024-06-23 18:34] LABS: ALB/GLOB Ratio 1.9 RATIO (0.9-2.4); AST(SGOT) 20 U/L (<=31); Alanine Aminotransfer ALT/SGPT 20 U/L (<=34); Albumin, Serum 4.4 g/dL (3.4-4.8); Alkaline Phosphatase 62 U/L (35-104); Anion Gap 12 (5-15); BUN 13 mg/dL (4-19); BUN/Creat Ratio 13.9 RATIO (10-20); Calcium,Total 9.4 mg/dL (7.6-11.0); Carbon Dioxide 24.4 mmol/L (21.0-32.0); Chloride 100 mmol/L (98-108); Creatinine, Serum 0.95 mg/dL (0.70-1.20); EST Glomerular Filtration Rate 64 (>60); Globulin 2.3 g/dL (2.2-4.2); Glucose 83 mg/dL (70-99); Potassium 3.9 mmol/L (3.3-5.1); Protein, Total 6.7 g/dL (5.9-8.4); Sodium Level 137 mmol/L (133-145); Total Bilirubin 0.19 mg/dL (0.00-1.30)
== END | disposition home or self-care (01) ==
LOC: MTLAB 16:27
PROVIDERS: PCP Family Medicine; Referring Provider Internal Medicine Rheumatology; Visit Provider Internal Medicine Rheumatology
DX: M06.4 Inflammatory polyarthropathy (principal); M65.312 Trigger thumb, left thumb; R76.8 Other specified abnormal immunological findings in serum
CPT/HCPCS: 36415; 80053; 85025

== ENCOUNTER → 2024-09-22 | Outpatient (CLI) | payer MEDICARE, OTHER, SELFPAY ==
[2024-09-22 09:51] LABS: Absolute Lymphocyte Count 1.89 X10^3/uL (0.83-4.51); Absolute Neutrophil Count 2.9 X10^3/uL (2.0-7.7); Basophil# 0.12 X10^3/uL; Basophil% 2.1 % (0-1); Eosinophil# 0.29 X10^3/uL; Eosinophils% 5.1 % (0-5); Hematocrit 38.9 % (37-47); Hemoglobin 13.4 g/dL (12.0-15.0); Lymphocyte # 1.89 X10^3/ul (0.83-4.51); Lymphocyte % 33.3 % (19-41); Mean Corp Hgb Conc 34.4 g/dL (32-36); Mean Corpuscular Volume 87.2 fL (81-99); Mean Platelet Vol. 11.3 fl (6.2-12.0); Monocyte# 0.44 X10^3/uL; Monocyte% 7.7 % (0-10); NRBC Flagged by Analyzer 0 % (0-5); Neutrophil # 2.93 X10^3/uL (2.7-7.7); Neutrophil % 51.6 % (47-70); Platelet Count 209 K/mm3 (150-450); RBC Distribution Width CV 13.1 % (11.6-14.6); RBC Distribution Width SD 41.5 fl (35.1-43.9); Red Blood Count 4.46 M/mm3 (4.2-5.4); White Blood Count 5.7 K/mm3 (4.4-11.0)
[2024-09-22 10:20] LABS: ALB/GLOB Ratio 1.9 RATIO (0.9-2.4); AST(SGOT) 24 U/L (<=31); Alanine Aminotransfer ALT/SGPT 21 U/L (<=34); Albumin, Serum 4.3 g/dL (3.4-4.8); Alkaline Phosphatase 61 U/L (35-104); Anion Gap 13 (5-15); BUN 15 mg/dL (4-19); BUN/Creat Ratio 13.7 RATIO (10-20); Calcium,Total 9.3 mg/dL (7.6-11.0); Carbon Dioxide 24.4 mmol/L (21.0-32.0); Chloride 100 mmol/L (98-108); Creatinine, Serum 1.06 mg/dL (0.70-1.20); EST Glomerular Filtration Rate 56 (>60); Globulin 2.2 g/dL (2.2-4.2); Glucose 89 mg/dL (70-99); Potassium 3.8 mmol/L (3.3-5.1); Protein, Total 6.6 g/dL (5.9-8.4); Sodium Level 138 mmol/L (133-145); Total Bilirubin 0.31 mg/dL (0.00-1.30)
== END | disposition home or self-care (01) ==
LOC: MTLAB 08:54
PROVIDERS: PCP Family Medicine; Referring Provider Internal Medicine Rheumatology; Visit Provider Internal Medicine Rheumatology
DX: M06.4 Inflammatory polyarthropathy (principal); M65.312 Trigger thumb, left thumb; M79.7 Fibromyalgia; R76.8 Other specified abnormal immunological findings in serum
CPT/HCPCS: 36415; 80053; 85025

== ENCOUNTER → 2025-02-16 | Outpatient (CLI) | payer MEDICARE, OTHER, SELFPAY ==
[2025-02-16 17:39] LABS: Hematocrit 39.5 % (37-47); Hemoglobin 12.9 g/dL (12.0-15.0); Immature Granulocytes Count 0.010 X10^3/uL (0.0-0.0); Mean Corp Hgb Conc 32.7 g/dL (32-36); Mean Corpuscular Volume 88.8 fL (81-99); Mean Platelet Vol. 11.9 fl (6.2-12.0); NRBC Flagged by Analyzer 0 % (0-5); Platelet Count 221 K/mm3 (150-450); RBC Distribution Width CV 13.9 % (11.6-14.6); RBC Distribution Width SD 45.5 fl (35.1-43.9); Red Blood Count 4.45 M/mm3 (4.2-5.4); White Blood Count 6.6 K/mm3 (4.4-11.0)
[2025-02-16 18:31] LABS: AST(SGOT) 21 U/L (<=31); Alanine Aminotransfer ALT/SGPT 20 U/L (<=34); Albumin, Serum 4.2 g/dL (3.4-4.8); Alkaline Phosphatase 61 U/L (35-104); Anion Gap 13 (5-15); BUN 14 mg/dL (4-19); BUN/Creat Ratio 10.0 RATIO (10-20); Calcium,Total 9.3 mg/dL (7.6-11.0); Carbon Dioxide 24.3 mmol/L (21.0-32.0); Chloride 102 mmol/L (98-108); Globulin 2.4 g/dL (2.2-4.2); Glucose 86 mg/dL (70-99); Potassium 4.2 mmol/L (3.3-5.1)
== END | disposition home or self-care (01) ==
LOC: MTLAB 16:20
PROVIDERS: PCP Family Medicine; Referring Provider Internal Medicine Rheumatology; Visit Provider Internal Medicine Rheumatology
DX: M06.4 Inflammatory polyarthropathy (principal); M65.312 Trigger thumb, left thumb; M79.7 Fibromyalgia; R76.89 Other specified abnormal immunological findings in serum
CPT/HCPCS: 36415; 80053; 85025